=== PATIENT | male | born 1945 | race Caucasian/White ===

== ENCOUNTER 2016-04-15 19:18 | Emergency (ER) | payer MEDICARE ==
[2016-04-15] MEDS ORDERED: ONDANSETRON 4 MG/2 ML VIAL IVP STA ×2 (20:44→22:56)
[2016-04-15] MEDS ORDERED: SODIUM CHLORIDE 0.9% 1,000 ML IV ONE ×2 (20:44→20:50)
[2016-04-15] MEDS ORDERED: DICYCLOMINE 10 MG CAPSULE PO STA ×2 (20:44→22:56)
[2016-04-15] MEDS ORDERED: DICYCLOMINE 10 MG CAPSULE PO ONE ×2 (20:50→23:06)
[2016-04-15] MEDS ORDERED: ONDANSETRON 4 MG/2 ML VIAL ONE ×2 (20:50→23:06)
[2016-04-15] MEDS ORDERED: POTASSIUM BICARB 25 MEQ TABLET PO STA (21:19)
[2016-04-15] MEDS ORDERED: POTASSIUM CHLOR 10 MEQ/100 ML 100 ML IV ONE ×2 (21:19→21:28)
[2016-04-15] MEDS ORDERED: POTASSIUM BICARB 25 MEQ TABLET PO ONE (21:28)
[2016-04-15] MEDS ORDERED: CALCIUM CARBONATE CHEW 500 MG TABLET PO STA (22:20)
[2016-04-15] MEDS ORDERED: CALCIUM CARBONATE CHEW 500 MG TABLET ONE (22:27)
== END 2016-04-15 23:14 | disposition home or self-care (01) ==
DX: K43.9 Ventral hernia without obstruction or gangrene (principal); R11.0 Nausea; E86.0 Dehydration; E87.6 Hypokalemia; R10.13 Epigastric pain; E66.01 Morbid (severe) obesity due to excess calories; Z68.44 Body mass index [BMI] 60.0-69.9, adult; F51.01 Primary insomnia; N28.89 Other specified disorders of kidney and ureter; E11.42 Type 2 diabetes mellitus with diabetic polyneuropathy; Z79.84 Long term (current) use of oral hypoglycemic drugs; I11.0 Hypertensive heart disease with heart failure; I50.9 Heart failure, unspecified; Z86.010 Personal history of colon polyps
CPT/HCPCS: 36415; 74176; 80053; 83690; 85025; 87339; 96365; 96375; 96376; 99284; A9270

== ENCOUNTER 2016-04-24 14:00 | Outpatient (CLI) | payer MEDICARE | END 2016-04-24 14:01 | disposition home or self-care (01) | DX: I12.9 Hypertensive chronic kidney disease with stage 1 through stage 4 chronic kidney disease, or unspecified chronic kidney disease (principal); N18.9 Chronic kidney disease, unspecified; E11.9 Type 2 diabetes mellitus without complications; R06.09 Other forms of dyspnea ==

== ENCOUNTER 2016-05-07 11:50 | Outpatient (CLI) | payer MEDICARE | END 2016-05-07 11:51 | DX: E61.1 Iron deficiency (principal); N18.9 Chronic kidney disease, unspecified ==

== ENCOUNTER 2016-05-16 13:44 | Outpatient (CLI) | payer MEDICARE ==
[2016-05-16] MEDS ORDERED: IOPAMIDOL-300 100 ML VIAL IVP ONE (15:23)
== END 2016-05-16 13:45 | disposition home or self-care (01) ==
DX: N28.1 Cyst of kidney, acquired (principal)
CPT/HCPCS: 74178; Q9967

== ENCOUNTER 2016-08-08 15:24 | Outpatient (CLI) | payer MEDICARE ==
[2016-08-08 15:52] LABS: BASOPHILS # (AUTO) 0.1 10^3/uL (0.0-0.1); BASOPHILS % (AUTO) 0.4 %; EOSINOPHILS % (AUTO) 0.1 %; HGB - HEMOGLOBIN 8.7 g/dL (14.0-18.0); LYMPHOCYTES # (AUTO) 2.5 10^3/uL (1.5-3.5); LYMPHOCYTES % (AUTO) 14.8 %; MEAN CORPUSCULAR HEMOGLOBIN 22.2 pg (27.0-31.0); MEAN CORPUSCULAR VOLUME 73.9 fL (80.0-94.0); MEAN PLATELET VOLUME 7.4 fL (7.4-11.4); MONOCYTES # (AUTO) 1.9 10^3/uL (0.0-1.0); MONOCYTES % (AUTO) 11.4 %; NEUTROPHILS # (AUTO) 12.4 10^3/uL (1.5-6.6); NEUTROPHILS % (AUTO) 73.3 %; RED BLOOD COUNT 3.92 10^6/uL (4.70-6.10); RED CELL DISTRIBUTION WIDTH 16.1 % (12.0-15.0)
[2016-08-08 16:07] LABS: ALBUMIN/GLOBULIN RATIO 1.1 (1.0-2.2); BILIRUBIN,TOTAL 0.5 mg/dL (0.2-1.0); BUN - BLOOD UREA NITROGEN 23 mg/dL (6-20); CALCIUM 8.9 mg/dL (8.5-10.3); CARBON DIOXIDE - CO2 28 mmol/L (21-32); CHLORIDE 101 mmol/L (101-111); CREATININE 1.5 mg/dL (0.6-1.2); GFR - MDRD 46 (>89); GLUCOSE 133 mg/dL (70-100); IRON < 6 ug/dL (45-182); POTASSIUM 3.9 mmol/L (3.5-5.0); SODIUM 140 mmol/L (135-145); TOTAL PROTEIN 6.8 g/dL (6.7-8.2)
[2016-08-08 17:14] LABS: HEMOGLOBIN A1C 0.4 g/dL
[2016-08-08 17:26] LABS: THYROID STIMULATING HORMONE 2.31 uIU/mL (0.34-5.60)
[2016-08-08] MEDS ORDERED: IOPAMIDOL-300 100 ML VIAL IVP ONE (17:47)
[2016-08-08] MEDS ORDERED: IOPAMIDOL-300 50 ML VIAL PO ONE (17:47)
--- NOTE | 2016-08-08 19:34 | CT Preliminary Report ---
Exam: CT Abdomen/Pelvis W/ Impression: New cecal lesion with adjacent fat stranding. This may represent a primary colon cancer or inflammato ry changes. A GI consult is recommended for further evaluation. Multiple ventral hernias. The largest contains bowel without evidence of a bowel obstruction. The candy earance is similar to the previous study. Diverticulosis of the descending and sigmoid colon without evidence of diverticulitis. Atherosclerosis of the aorta and iliac arteries. Large pannus extending into the scrotum. [facility] We are attempting to get a hold of the referring clinician at this time. SITE ID: [id number]
--- NOTE | 2016-08-08 19:37 | CT Report ---
EXAM: CT ABDOMEN AND PELVIS EXAM DATE: 08/08/2016 05:58 PM. CLINICAL HISTORY: ABDOMINAL PAIN LOWER QUADRANT, DIZZINESS VENTRAL H. COMPARISONS: 05/16/2016. TECHNIQUE: Routine helical CT imaging was performed through the abdomen and pelvis. IV contrast: None . Enteric contrast: No. Reconstructions: Coronal and sagittal. In accordance with CT protocol optimization, one or more of the following dose reduction techniques w ere utilized for this exam: automated exposure control, adjustment of mA and/or KV based on patient s ize, or use of iterative reconstructive technique. FINDINGS: The lung bases are without evidence of a mass or infiltrate. The liver and spleen contain calcifications consistent with old granulomatous disease. There are mult iple ventral hernias. The largest is located superiorly and contains bowel. It measures approximately 14.9 7.2 x 8.3 cm (image 27 of series 5 and image 57 of series 8). There is no evidence of a bowel o bstruction. The remainder of the ventral hernias containing intraperitoneal fat. There is a large peña nus extending into the scrotum. The pancreas and adrenal glands are normal in appearance. The kidneys are without evidence of hydrone phrosis. There is a new lesion in the cecal region. It measures approximately 7.9 x 6.4 x 3.9 cm (dwayne ge 77 of series 5 and image 34 series 7). This may represent a mass or inflammatory process. Adjacent fat stranding is noted. This is new since the previous study. Diverticuli are seen involving the descending and sigmoid colon. There is no fat stranding or fluid c ollection to suggest the presence of diverticulitis. No mass or cyst is seen within the pelvis. There is atherosclerosis of the aorta and iliac arteries area there are degenerative changes of the thorac ic and lumbar spine. Impression: New cecal lesion with adjacent fat stranding. This may represent a primary colon cancer or inflammato ry changes. A GI consult is recommended for further evaluation. Multiple ventral hernias. The largest contains bowel without evidence of a bowel obstruction. The candy earance is similar to the previous study. Diverticulosis of the descending and sigmoid colon without evidence of diverticulitis. Atherosclerosis of the aorta and iliac arteries. Large pannus extending into the scrotum. [facility] We are attempting to get a hold of the referring clinician at this time. Referring Provider Line: [phone] SITE ID: [id number]
== END 2016-08-08 15:25 | disposition home or self-care (01) ==
LOC: DI 15:24
PROVIDERS: ATTEND Family Medicine
DX: R10.31 Right lower quadrant pain (principal); K63.89 Other specified diseases of intestine; K43.9 Ventral hernia without obstruction or gangrene; K57.30 Diverticulosis of large intestine without perforation or abscess without bleeding; I70.0 Atherosclerosis of aorta; E65 Localized adiposity; I70.8 Atherosclerosis of other arteries; K43.2 Incisional hernia without obstruction or gangrene; E11.9 Type 2 diabetes mellitus without complications; I12.9 Hypertensive chronic kidney disease with stage 1 through stage 4 chronic kidney disease, or unspecified chronic kidney disease; N18.9 Chronic kidney disease, unspecified; R42 Dizziness and giddiness
CPT/HCPCS: 36415; 74177; 80053; 82043; 82607; 83036; 83540; 84443; 85025; Q9967

== ENCOUNTER 2016-10-25 14:09 | Outpatient (CLI) | payer MEDICARE ==
[2016-10-25 14:26] LABS: BASOPHILS # (AUTO) 0.1 10^3/uL (0.0-0.1); BASOPHILS % (AUTO) 1.1 %; EOSINOPHILS # (AUTO) 0.2 10^3/uL (0.0-0.7); EOSINOPHILS % (AUTO) 2.8 %; HCT - HEMATOCRIT 26.4 % (42.0-52.0); HGB - HEMOGLOBIN 7.8 g/dL (14.0-18.0); LYMPHOCYTES % (AUTO) 24.8 %; MEAN CORPUSCULAR HEMOGLOBIN 19.9 pg (27.0-31.0); MEAN CORPUSCULAR HGB CONC 29.5 g/dL (32.0-36.0); MEAN CORPUSCULAR VOLUME 67.4 fL (80.0-94.0); MEAN PLATELET VOLUME 7.1 fL (7.4-11.4); MONOCYTES # (AUTO) 0.7 10^3/uL (0.0-1.0); NEUTROPHILS % (AUTO) 62.3 %; RED BLOOD COUNT 3.91 10^6/uL (4.70-6.10); RED CELL DISTRIBUTION WIDTH 18.8 % (12.0-15.0)
[2016-10-25 14:42] LABS: ALBUMIN/GLOBULIN RATIO 1.1 (1.0-2.2); BILIRUBIN,TOTAL 0.3 mg/dL (0.2-1.0); CALCIUM 10.3 mg/dL (8.5-10.3); CREATININE 1.8 mg/dL (0.6-1.2); POTASSIUM 3.7 mmol/L (3.5-5.0); TOTAL PROTEIN 6.8 g/dL (6.7-8.2)
[2016-10-25 15:37] LABS: PLATELET ESTIMATE, MANUAL NORMAL (130-450,000) (NORMAL); PLATELET MORPHOLOGY NORMAL APPEARANCE (NORMAL)
== END 2016-10-25 14:10 | disposition home or self-care (01) ==
LOC: LAB 14:09
PROVIDERS: ATTEND Internal Medicine Gastroenterology
DX: R93.8 Abnormal findings on diagnostic imaging of other specified body structures (principal)
CPT/HCPCS: 36415; 80053; 82378; 85025

== ENCOUNTER 2016-10-28 14:02 | Outpatient (CLI) | payer MEDICARE ==
[2016-10-28] MEDS ORDERED: IOPAMIDOL-300 50 ML VIAL PO ONE (15:55)
--- NOTE | 2016-10-29 11:10 | CT Report ---
CT CHEST WITHOUT CONTRAST: 10/28/2016 CLINICAL INDICATION: Cecal mass on previous CT. TECHNIQUE: Axial CT images of the chest were obtained without intravenous contrast. No previous CT is available for comparison. In accordance with CT protocol optimization, one or more of the following dose reduction techniques w ere utilized for this exam: automated exposure control, adjustment of mA and/or KV based on patient size, or use of iterative reconstructive technique. FINDINGS: The heart and great vessels demonstrate mild atherosclerotic calcification. No hilar or m ediastinal lymphadenopathy is present. The lungs are clear. No effusion or pneumothorax is present. Osseous structures demonstrate degenerative changes. IMPRESSION: NO EVIDENCE OF PULMONARY NODULE OR MASS LESION. JOB #: [id number] EXT JOB #:[id number]
--- NOTE | 2016-10-29 11:13 | CT Report ---
CT ABDOMEN AND PELVIS WITHOUT CONTRAST: 10/28/2016 CLINICAL INDICATION: Cecal mass. TECHNIQUE: Axial CT images of the abdomen and pelvis were obtained with oral contrast only. Compari son is made to previous CT of 08/08/2016. In accordance with CT protocol optimization, one or more of the following dose reduction techniques w ere utilized for this exam: automated exposure control, adjustment of mA and/or KV based on patient size, or use of iterative reconstructive technique. FINDINGS: Allowing for the lack of intravenous contrast, the liver, pancreas, kidneys, and adrenal g lands appear unremarkable. The spleen demonstrates changes of old granulomatous disease. The patien t is status post cholecystectomy. Multiple anterior abdominal wall hernias are again noted, with a l oop of nonobstructed transverse colon in the most superior hernia, and multiple fat-containing hernia s present. No bowel dilatation, free gas, or free fluid is present. No abdominal adenopathy is seen . Pelvis: Mass-like appearance of the cecum persists. Surrounding inflammation has improved significa ntly. No pelvic adenopathy or free fluid is appreciated. Osseous structures demonstrate degenerative changes. IMPRESSION: 1. PERSISTENT MASS-LIKE APPEARANCE OF THE CECUM. INTERVAL RESOLUTION OF SURROUNDING INFLAMMATION. 2. MULTIPLE ANTERIOR ABDOMINAL WALL HERNIAS, WITH THE MOST SUPERIOR ONE AGAIN CONTAINING A LOOP OF N ONOBSTRUCTED TRANSVERSE COLON. JOB #: [id number] EXT JOB #:[id number]
== END 2016-10-28 14:03 | disposition home or self-care (01) ==
LOC: DI 14:02
PROVIDERS: ATTEND Internal Medicine Gastroenterology
DX: K63.9 Disease of intestine, unspecified (principal); K43.9 Ventral hernia without obstruction or gangrene
CPT/HCPCS: 71250; 74176; Q9967

== ENCOUNTER 2017-10-05 17:35 | Outpatient (CLI) | payer MEDICARE | END 2017-10-05 17:36 | disposition critical access hospital (66) | LOC: EMS 17:35 | PROVIDERS: ATTEND Surgery | DX: R10.9 Unspecified abdominal pain (principal); R11.2 Nausea with vomiting, unspecified | CPT/HCPCS: A0425; A0429 ==

== ENCOUNTER 2017-10-05 17:41 | Inpatient (IN) | payer MEDICARE ==
--- NOTE | 2017-10-05 18:04 | ED Physician Documentation ---
PD HPI ABD PAIN - Stated complaint Stated Complaint: ABD PX - Chief complaint Chief Complaint: Abd Pain - History obtained from History obtained from: Patient, Family, EMS - History of Present Illness Timing - onset: Other (This is a 72-year-old gentleman with morbid obesity and diabetes as well as abdominal hernias and history of GI bleeds who presents with chronic abdominal pain which increased 10 days ago. It is diffuse and now has not had a bowel movement output or flatus despite trying enemas and oral laxatives. Started vomiting a few days ago as well, it is nonbloody.) Review of Systems Ten Systems: 10 systems reviewed and negative Constitutional: denies: Fever, Chills Throat: denies: Dental pain / toothache, Sore throat Cardiac: denies: Chest pain / pressure, Palpitations Respiratory: denies: Dyspnea, Cough PD PAST MEDICAL HISTORY - Past Medical History Cardiovascular: Congestive heart failure, Hypertension Endocrine/Autoimmune: Type 2 diabetes GI: Hiatal hernia - Past Surgical History Past Surgical History: Yes HEENT: Cataracts - Present Medications Home Medications: Ambulatory Orders Medication Instructions Recorded Confirmed Furosemide 1 tab PO BID 04/15/16 04/15/16 Losartan Potassium 50 mg PO BID 04/15/16 04/15/16 traMADol [Ultram] 1 - 2 tab PO QPM 04/15/16 04/15/16 Calcium Carbonate [Tums (Calcium 10/05/17 Carbonate 500mg)] Cholecalciferol [Vitamin D3] 10/05/17 Docusate Sodium [Dulcolax Stool 10/05/17 Softener] Gabapentin 3 PO 10/05/17 Zolpidem Tartrate [Ambien] 10/05/17 - Allergies Allergies/Adverse Reactions: Allergies Allergy/AdvReac Type Severity Reaction Status Date / Time cephalexin monohydrate * AdvReac Nausea Verified 10/05/17 18:08 [From Keflex] - Social History Does the pt smoke?: No Smoking Status: Never smoker Does the pt drink ETOH?: No Does the pt have substance abuse?: No - Family History Family history: reports: Non contributory - Immunizations Immunizations are current?: No - POLST Patient has POLST: No PD ED PE NORMAL - Vitals Vital signs reviewed: Yes - General General: Alert and oriented X 3, No acute distress - HEENT HEENT: PERRL, EOMI - Neck Neck: Supple, no meningeal sign, No bony TTP - Cardiac Cardiac: RRR, No murmur - Respiratory Respiratory: No respiratory distress, Clear bilaterally - Abdomen Abdomen: Other (He has a right-sided vertical cholecystectomy scar which is tender with a mass in it. He has absent bowel tones but no diffuse tenderness or surgical signs. He is morbidly obese.) - Back Back: No CVA TTP, No spinal TTP - Derm Derm: Normal color, Warm and dry - Extremities Extremities: No calf tenderness / cord, Other (Venous stasis changes) - Neuro Neuro: Alert and oriented X 3, Normal speech - Psych Psych: Normal mood, Normal affect Results - Vitals Vitals: Vital Signs - 24 hr 10/05/17 10/05/17 10/05/17 17:43 18:00 19:08 Temperature 36.9 C Heart Rate 81 78 74 Respiratory 18 18 18 Rate Blood Pressure 130/79 145/67 H 148/74 H O2 Saturation 93 95 95 10/05/17 20:19 Temperature Heart Rate 70 Respiratory 18 Rate Blood Pressure 158/80 H O2 Saturation 95 Oxygen O2 Source Room air - Labs Labs: Laboratory Tests 10/05/17 10/05/17 10/05/17 18:22 18:22 18:22 WBC 5.2 RBC 4.62 L Hgb 9.3 L Hct 31.1 L MCV 67.3 L MCH 20.1 L MCHC 29.9 L RDW 18.8 H Plt Count 360 MPV 7.1 L Neut # (Auto) 3.5 Lymph # (Auto) 0.8 L [place] # (Auto) 0.8 Eos # (Auto) 0.0 Baso # (Auto) 0.0 Absolute Nucleated RBC 0.00 Nucleated RBC % 0.0 Manual Slide Review Indicated Platelet Estimate NORMAL (130-450,000) Platelet Morphology NORMAL APPEARANCE RBC Morph Micro Appear 2+ POIKILOCYTOSIS VBG pH VBG pCO2 VBG pO2 VBG HCO3 VBG Total CO2 VBG O2 Saturation VBG Base Excess Sodium 142 Potassium 3.4 L Chloride 92 L Carbon Dioxide 36 H Anion Gap 12.0 BUN 32 H Creatinine 1.9 H Estimated GFR (MDRD) 35 L Glucose 111 H Lactic Acid 1.4 Calcium 10.5 H Total Bilirubin 0.6 AST 23 ALT 17 Alkaline Phosphatase 44 Total Protein 6.9 Albumin 3.4 Globulin 3.5 Albumin/Globulin Ratio 1.0 Lipase 20 L 10/05/17 18:22 WBC RBC Hgb Hct MCV MCH MCHC RDW Plt Count MPV Neut # (Auto) Lymph # (Auto) [place] # (Auto) Eos # (Auto) Baso # (Auto) Absolute Nucleated RBC Nucleated RBC % Manual Slide Review Platelet Estimate Platelet Morphology RBC Morph Micro Appear VBG pH 7.480 H VBG pCO2 54.5 H VBG pO2 41.9 VBG HCO3 39.7 H VBG Total CO2 41.3 H VBG O2 Saturation 78.9 VBG Base Excess 14.3 H Sodium Potassium Chloride Carbon Dioxide Anion Gap BUN Creatinine Estimated GFR (MDRD) Glucose Lactic Acid Calcium Total Bilirubin AST ALT Alkaline Phosphatase Total Protein Albumin Globulin Albumin/Globulin Ratio Lipase - Rads (name of study) Ct A/P Radiology: EMP read contemporaneously (1. There is dilated small bowel measuring up to 4 cm in diameter. There is mesenteric edema. Findings are suspicious for small bowel obstruction. A discrete transition point is not clearly seen. Enteritis would be a differential consideration. 2. There is a heterogeneous fat and colon containing right anterior abdominal wall hernia without evidence of associated obstruction or inflammation. 3. No acute solid abdominal organ abnormalities are seen. 4. Flattening of the IVC may represent hypovolemia. ) PD MEDICAL DECISION MAKING - ED course ED course: This is a 72-year-old gentleman with complicated medical history including CHF, diabetes, morbid obesity, and abdominal wall hernia which causes him chronic pain for which [facility] has evaluated and felt him to be best served as a nonoperative candidate because of his comorbidities and body habitus. That said now he has a bowel obstruction, although it does not seem related to the hernia which is good so hopefully can be a nonoperative candidate and Dr. Alonso Hdz was consulted by phone and will consult and agrees and will be placed on medicine for admission, spoke with Dr. Becerril for admission at 8:14 PM. However that said when I did talk with her she requested that I try at least try transferring him to [facility] because if he did become an operative candidate he would be incredibly complex. I did call [facility], there are boarding in would be unable to accept him in transfer last he was in imminent operative candidate, but we are welcome to call them back if he does require an operative need. - Sepsis Event Vital Signs: Vital Signs - 24 hr 10/05/17 10/05/17 10/05/17 17:43 18:00 19:08 Temperature 36.9 C Heart Rate 81 78 74 Respiratory 18 18 18 Rate Blood Pressure 130/79 145/67 H 148/74 H O2 Saturation 93 95 95 10/05/17 20:19 Temperature Heart Rate 70 Respiratory 18 Rate Blood Pressure 158/80 H O2 Saturation 95 Oxygen O2 Source Room air Departure - Departure Disposition: [facility] DC/Xfer Clinical Impression: Small bowel obstruction Condition: Stable
[2017-10-05] MEDS ORDERED: IOPAMIDOL-300 100 ML VIAL ONE (18:19)
[2017-10-05] MEDS ORDERED: IOPAMIDOL-300 50 ML VIAL ONE (18:19)
[2017-10-05 18:34] LABS: VBG BASE EXCESS 14.3 mmol/L (-2 - +2); VBG PCO2 54.5 mmHg (41-51); VBG PH 7.48 (7.31-7.41); VBG PO2 41.9 mmHg (25-47); VBG TOTAL CO2 41.3 mmol/L (24-29)
[2017-10-05 18:36] LABS: BASOPHILS % (AUTO) 0.5 %; EOSINOPHILS % (AUTO) 0.9 %; HGB - HEMOGLOBIN 9.3 g/dL (14.0-18.0); LYMPHOCYTES # (AUTO) 0.8 10^3/uL (1.5-3.5); LYMPHOCYTES % (AUTO) 15.1 %; MEAN CORPUSCULAR HEMOGLOBIN 20.1 pg (27.0-31.0); MEAN CORPUSCULAR HGB CONC 29.9 g/dL (32.0-36.0); MEAN CORPUSCULAR VOLUME 67.3 fL (80.0-94.0); MEAN PLATELET VOLUME 7.1 fL (7.4-11.4); MONOCYTES # (AUTO) 0.8 10^3/uL (0.0-1.0); MONOCYTES % (AUTO) 15.8 %; NEUTROPHILS # (AUTO) 3.5 10^3/uL (1.5-6.6); NEUTROPHILS % (AUTO) 67.7 %; PLT - PLATELET COUNT 360 10^3/uL (130-450); RED BLOOD COUNT 4.62 10^6/uL (4.70-6.10); RED CELL DISTRIBUTION WIDTH 18.8 % (12.0-15.0); WHITE BLOOD COUNT 5.2 x10^3/uL (4.8-10.8)
[2017-10-05 18:41] LABS: ALBUMIN 3.4 g/dL (3.2-5.5); BILIRUBIN,TOTAL 0.6 mg/dL (0.2-1.0); CALCIUM 10.5 mg/dL (8.5-10.3); CREATININE 1.9 mg/dL (0.6-1.2); TOTAL PROTEIN 6.9 g/dL (6.7-8.2)
[2017-10-05] MEDS ORDERED: SODIUM CHLORIDE 0.9% 1,000 ML IV ONE (18:50)
[2017-10-05 19:07] LABS: PLATELET ESTIMATE, MANUAL NORMAL (130-450,000) (NORMAL); PLATELET MORPHOLOGY NORMAL APPEARANCE (NORMAL)
[2017-10-05] MEDS ORDERED: IOPAMIDOL-300 50 ML VIAL PO ONE (19:52)
--- NOTE | 2017-10-05 19:59 | CT Report ---
Procedure Date: 10/05/2017 Accession Number: [id number] / [id number] Procedure: CT - Abdomen/Pelvis W/O CPT Code: FULL RESULT: EXAM: CT ABDOMEN AND PELVIS EXAM DATE: 10/05/2017 07:25 PM. CLINICAL HISTORY: Abdominal pain. COMPARISONS: ABDOMEN/PELVIS W/O 10/28/2016. TECHNIQUE: Routine axial helical CT imaging was performed through the abdomen and pelvis without IV contrast. Reconstructions: Coronal and sagittal. In accordance with CT protocol optimization, one or more of the following dose reduction techniques were utilized for this exam: automated exposure control, adjustment of mA and/or KV based on patient size, or use of iterative reconstructive technique. FINDINGS: Lung Bases: Unremarkable. There is a borderline-enlarged right epicardiac lymph node. Abdominal Organs: Noncontrast images of the abdominal organs are grossly unremarkable. Gallbladder/bile ducts: No significant abnormalities. Peritoneal Cavity: The stomach is distended with positive oral contrast. There is mildly dilated mid and lower abdomen small bowel. There is mild mesenteric fat stranding. A discrete transition point is not clearly seen. No acute colonic abnormalities are seen. There is a heterogeneous right anterior abdomen fat and colon containing hernia without evidence of associated inflammation. Pelvic Organs: No bladder stones or wall thickening. Noncontrast images of the visualized pelvic organs are unremarkable. Vasculature: Flattening of the IVC may represent hypovolemia. Other: None. IMPRESSION: 1. There is dilated small bowel measuring up to 4 cm in diameter. There is mesenteric edema. Findings are suspicious for small bowel obstruction. A discrete transition point is not clearly seen. Enteritis would be a differential consideration. 2. There is a heterogeneous fat and colon containing right anterior abdominal wall hernia without evidence of associated obstruction or inflammation. 3. No acute solid abdominal organ abnormalities are seen. 4. Flattening of the IVC may represent hypovolemia.
[2017-10-05] MEDS ORDERED: MORPHINE 10 MG/ML VIAL IVP STA (20:04)
[2017-10-05] MEDS ORDERED: ONDANSETRON 4 MG/2 ML VIAL IVP STA (20:17)
[2017-10-05] MEDS ORDERED: ONDANSETRON 4 MG/2 ML VIAL ONE (20:30)
--- NOTE | 2017-10-05 21:13 | HISTORY & PHYSICAL EXAMINATION ---
Chief Complaint - Chief Complaint Chief Complaint: Abdominal Pain/Small Bowel Obstruction History of Present Illness - Admitted From Admitted From:: ED - History Obtained From Records Reviewed: Centricity History obtained from: Patient and Spouse Exam Limitations: None - History of Present Illness HPI Comment/Other: Mr. Reed is a 72 y/o male with PMH of morbid obesity, HF (last echo 2013 with EF 60-65%), DM type 2, HTN, lower extremity lymphedema, MAR with nonadherent CPAP use (does use 5L home O2 while sleeping), and chronic abdominal pain s/t longstanding large abdominal ventral hernias. Mr. Reed presented today with abdominal pain, constipation, vomiting, and new syncopal episodes for that past 4-5 days. He reports that he began experiencing symptoms on 10/01 and has not had a BM, passed flatus, or been unable to take much PO since that time. The next day he experienced a syncopal episode after trying to have a bowel movement where he fell to the ground and had be helped up by his and son. He has continued to experience episodes of dizziness and presyncope for the past 4 days. The abdominal pain was generalized, central and nonradiating. Constant. He denies fever, chills, malaise, hematemesis, or rectal bleeding. His nausea has been controlled with PRN zofran x1 in the ER and has remained hemodynamically stable. He came to ER via ambulance from home. He was found to have a small bowel obstruction on CT abd/pelvis, for which we will admit him to provide supportive care and consult general surgery. In the past, he has reportedly been evaluated per his request for elective surgical intervention of panniculectomy/hernia repair due to his constant discomfort and hidden penis and has been seen by multiple surgeons from [facility], [facility], and [facility] but has been found to not be a candidate for elective surgery. His morbidities give him a high risk of post surgical complications. Pt has also had worsening chronic constipation and subsequently undergone multiple colonoscopies with the most recent in 2017 showing narrowing in his ascending colon last year but has has reportedly not seen any providers since then. He had a colonography at [facility] and says it was such a horrible experience he won't do another exam. So the cause of the narrowing is not known. He has no followed up with his PCP since 2017. History - Past Medical History Cardiovascular: reports: Congestive heart failure (last echo 2014 showed EF 60- 65%), Hypertension, Peripheral Vascular Disease. denies: Coronary artery disease, Angina, Arrhythmia Respiratory: reports: Shortness of breath (Chronically when abdominal distention ), Sleep apnea (15 year history), CPAP use (Nonadherent, only occasionally uses , does use 5L NC at night for past couple years). denies: Asthma, COPD Neuro: reports: Migraines, Peripheral neuropathy (Bilateral feet and some in lower legs). denies: CVA Endocrine/Autoimmune: reports: Type 2 diabetes (Diagnosed 2017) GI: reports: GI bleed (Rectal bleeding in past, did not require intervention), Hiatal hernia, Chronic constipation (Since cholecystectomy 40 years ago, daily stool softener use, baseline is 1 BM/day with straining), Other (Taking 15+ Tums per day for past 3-4 months to relieve "abdominal pain from hernia") : reports: Incontinence ("Dribbles"), Nocturia, Frequency, Other (Hidden penis , reports some difficulty voiding due to groin lymphedema) HEENT: reports: Chronic hearing loss (Bilateral, has been told he needs hearing aids but cannot afford) Psych: denies: Depression, Anxiety Musculoskeletal: reports: Osteoarthritis (Bilateral knees) Derm: reports: Other (Bilateral groin and LE lymphedema) MRSA Hx?: No Other Past Medical History: Hyperdense renal cyst found on CT in 2017, no interventions. - Past Surgical History General: reports: Cholecystectomy, Colonoscopy (3 colonoscopies in the past) Ortho: reports: Arthroscopic surgery (Bilateral Knees, multiple surgeries on each) HEENT: reports: Cataracts - Family & Social History Family History: Mother: , Mental Illness ( at age 92, schizophrenia) , Father: , CAD, Diabetes, Type 2, [place] ( in his 80s) Living arrangement: At home Living Situation: With spouse/s.o. 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 Has lived in [place], [place] for 20 years. to , [place], for 53 years. 3 adult children. Difficulty ambulating for past 6-7 years, uses cane and has motorized scooter, unable to climb stairs. - Substance History Use: Uses substance without health or social issues: NONE (Previous 3 PPD smoker x 20 years, quit 35 years ago) Abuse: Recurrent use of substance despite neg consequences: NONE - POLST Patient has POLST: No POLST Status: Full Code Meds/Allgy - Home Medications Home Medications: Ambulatory Orders Medication Instructions Recorded Confirmed Furosemide 1 tab PO BID 04/15/16 04/15/16 Losartan Potassium 50 mg PO BID 04/15/16 10/05/17 traMADol [Ultram] 1 - 2 tab PO QPM 04/15/16 04/15/16 Calcium Carbonate [Tums (Calcium 10/05/17 Carbonate 500mg)] Cholecalciferol [Vitamin D3] 10/05/17 Docusate Sodium [Dulcolax Stool 10/05/17 Softener] Gabapentin 4 PO 10/05/17 Zolpidem Tartrate [Ambien] 10/05/17 - Allergies Allergies/Adverse Reactions: Allergies Allergy/AdvReac Type Severity Reaction Status Date / Time cephalexin monohydrate * AdvReac Nausea Verified 10/05/17 18:08 [From Keflex] Review of Systems - Constitutional Constitutional: reports: Fatigue. denies: Fever, Chills, Night sweats - Eyes Eyes: reports: Corrective lenses (Uses reading glasses). denies: Pain, Irritation, Blurred vision - Ears, Nose & Throat Ears, Nose & Throat: reports: Hearing loss (Bilaterally), Other (Has had no teeth since age 21, does not wear dentures). denies: Tinnitus, Vertigo, Sore throat, Hoarseness, Bleeding gums - Cardiovascular Cariovascular: reports: Lightheadedness (Lightheadedness and syncope for 4 days , never experienced before, reports it as constant), Syncope, Exertional dyspnea (BURTON and decreased exercise tolerance over past year, SOB when walking around single story home, spends most of day in bed), Decr. exercise tolerance, Other (PND). denies: Irregular heart rate, Palpitations, Chest pain - Respiratory Respiratory: reports: Cough (Chronic dry cough after taking "blood pressure pill " (losartan)), Snoring, SOB with exertion. denies: Sputum production, Wheezing , Orthopnea, SOB at rest - Gastrointestinal Gastrointestinal: reports: Abdominal pain (Chronic R upper and lower quadrant abdominal pain at site of large ventral hernia, occasionally radiates to LUQ, increased pain from normal starting 4 days ago), Abdominal distention, Constipation (Chronic, uses miralax daily. Last BM 10/01. No stool or flatus since 10/01), Nausea, Vomiting (For 4 days time, little to no PO intake since), Bloating. denies: Rectal bleeding, Black stools, Bloody stools, Regulo blood emesis, Coffee grounds emesis, Reflux/heartburn - Genitourinary Genitourinary: reports: Frequency, Urgency, Incontinence. denies: Dysuria, Hematuria - Musculoskeletal Musculoskeletal: reports: Joint pain (Bilateral knees) - Neurological Neurological: denies: Focal weakness, Headache, Dizziness, Numbness, Incoordination - Psychiatric Psychiatric: denies: Depression, Anxiety - Hematologic/Lymphatic Hematologic/Lymphatic: reports: Anemia, Other (Lymphedema to bilateral groin and LEs x 20 years). denies: Bruising, Blood clots, Bleeding tendencies - All Other Systems All Other Systems: reports: Reviewed and negative Exam - Vital Signs Reviewed Vital Signs: Yes Vital Signs: Vital Signs x48h Temp Pulse Resp BP Pulse Ox 10/05/17 20:19 70 18 158/80 H 95 10/05/17 19:08 74 18 148/74 H 95 10/05/17 18:00 78 18 145/67 H 95 10/05/17 17:43 36.9 C 81 18 130/79 93 - Physical Exam General Appearance: positive: No acute distress, Alert, Other (Morbidly obese male laying comfortable on stretcher) Eyes Bilateral: positive: PERRL, EOMI, No scleral icterus ENT: positive: No signs of dehydration. negative: Dry mucous membranes Neck: positive: Trachea midline. negative: No JVD Respiratory: positive: Chest non-tender, No respiratory distress, Breath sounds nml Cardiovascular: positive: Regular rate & rhythm, No murmur, Decreased pulse(s) ( Bilateral DPs and PTs) Peripheral Pulses: positive: 1+ Abdomen: positive: Tenderness (Mildly TTP in right upper and lower quadrant), Mass (Multiple hernias palpated- large to R upper and lower quadrants, 2 smaller masses palpated mid lower quadrant), Abnml bowel sounds (Hypoactive), Other (Distended, obese abdomen). negative: Guarding, Rebound Skin: positive: Warm, Dry, Other (Bilateral groin lymphedema) Extremities: positive: No pedal edema, Other (1+ pitting tibial edema to BLEs) Neurologic/Psychiatric: positive: Oriented x3, Motor nml, Mood/affect nml Conclusion/Plan - Problem List (1) Small bowel obstruction Conclusion/Plan: Clinical presentation and exam findings concur with CT abd/pelvis findings that are suspicious for small bowel obstruction. Pt does not have any evidence of peritoneal irritation, is afebrile, hemodynamically stable, without leukocytosis so we will monitor him and plan for conservative management of SBO. * General surgery consult * NPO now, pt refused NGT in ED * MIVF with NS @ 100ml/hr for hydration * PRN IV antiemetics for nausea/vomiting * PRN IV morphine for acute abdominal pain * Repeat imaging via KUB in am * CBC and CMP in am (2) Syncope Conclusion/Plan: New syncopal episode with dizziness and presyncope in the setting of dehydration and multiple comorbidities. Could be from hypovolemia r/t vomiting. Denies palpitations, chest pain, SOB at rest, or arrhythmias. NSR on monitor in ER. However, given cardiac history (CHF, HTN) and increase in BURTON and fatigue over past few years we will obtain an echocardiogram to r/o cardiac etiology. * Routine TTE * OOB with assistance given fall risk Qualifiers: Syncope type: unspecified Qualified Code(s): R55 - Syncope and collapse (3) Hypertension Conclusion/Plan: Pt reports history of labile BPs in the past, states it has been well controlled recently on home losartan dose. SBPs 140-150s today. * Hold home losartan, restart once able to take PO * IV enalapril, hold for SBP <110 Qualifiers: Hypertension type: essential hypertension Qualified Code(s): I10 - Essential (primary) hypertension (4) Heart failure Conclusion/Plan: History of HF, last available Echo done in 2013 showed EF of 60-65%. Endorses increased fatigue, BURTON, PND, and LE edema over past couple years. * Repeat echocardiogram * Hold home lasix dose given mild dehydration s/t to vomiting * at this time will classify as HF with preserved EF Class III Qualifiers: Heart failure type: unspecified Heart failure chronicity: chronic Qualified Code(s): I50.9 - Heart failure, unspecified (5) Sleep apnea with use of continuous positive airway pressure (CPAP) Conclusion/Plan: 15 year history of MAR, occasionally uses home CPAP but is generally noncompliant and prefers to wear home O2 via nasal cannula at night, currently using 5L for past 2 years. * PRN CPAP if patient desires * Oxygen therapy to maintain Spo2 >92% (6) Diabetes type 2, controlled Conclusion/Plan: Reportedly well controlled without complications or pharmacologic therapy, diagnosed last year but this may be inaccurate as he also reportedly has take metformin in the distant past. * q6h POC blood glucose checks * Low dose SSI coverage while NPO * HgbA1C in am Qualifiers: Diabetes mellitus longterm insulin use: without long term care phlebotomist use Diabetes mellitus complication status: without complication Qualified Code(s): E11.9 - Type 2 diabetes mellitus without complications (7) Peripheral neuropathy due to ischemia Conclusion/Plan: History of PVD and bilateral lower extremity and foot peripheral neuropathy treated with gabapentin and tramadol. * Hold PO meds in setting of SBO * Restart when able to take PO - Lab Results Fish Bones: 10/06/17 05:36 10/06/17 05:36 Other Lab Results: Laboratory Tests 10/05/17 10/05/17 10/05/17 18:22 18:22 18:22 WBC 5.2 Hgb 9.3 L Hct 31.1 L Plt Count 360 Sodium 142 Potassium 3.4 L Chloride 92 L Carbon Dioxide 36 H BUN 32 H Creatinine 1.9 H Glucose 111 H Lactic Acid 1.4 Calcium 10.5 H Lipase 20 L - Diagnostic Imaging Results Diagnostic Imaging Results: positive: Final report reviewed (dilated small bowel with distended stomach) Diagnostic Imaging Results Comments: CT abdomen/pelvis shows: 1. Dilated small bowel measuring up to 4cm in diameter with mesenteric edema. Findings are suspicious for small bowel obstruction. Discrete transition point is not clearly seen. 2. Heterogenous fat and colon containing R anterior abdominal wall hernia without evidence of associated obstruction or inflammation. 3. No acute solid abdominal organ abnormalities. 4. Flattening of the IVC may represent hypovolemia. Core Measures - Anticipated LOS I expect patient to be DC'd or transferred within 96 hours.: Yes - DVT/VTE - Prophylaxis VTE/DVT Device ordered at admit?: Yes VTE/DVT Prophylaxis med ordered at admit?: Yes
[2017-10-05] MEDS ORDERED: BENZONATATE 100 MG CAPSULE PO STA (21:21)
[2017-10-05] MEDS: SODIUM CHLORIDE 0.9% 1,000 ML IV SCH (22:19)
[2017-10-06] MEDS: ENALAPRILAT 1.25 MG/ML VIAL IVP SCH ×4 (00:18→18:36)
[2017-10-06] MEDS: LORazepam 2 MG/ML VIAL IVP PRN (00:32)
[2017-10-06] MEDS: SODIUM CHLORIDE FLUSH 0.9% 10 ML SYRINGE IVP SCH ×4 (00:34→23:40)
[2017-10-06] MEDS ORDERED: POTASSIUM CHLOR 20 MEQ/100 ML 20 MEQ/100 ML BAG IV ONE (00:59)
[2017-10-06 01:22] LABS: VBG PH 7.48 (7.31-7.41)
[2017-10-06] MEDS: INSULIN REGULAR HUMAN 100 UNIT/1 ML 10 ML MDV SUBQ SCH ×5 (01:34→23:38)
[2017-10-06] MEDS: POTASSIUM CHLOR 10 MEQ/100 ML 10 MEQ/100 ML BAG IV SCH ×2 (01:49→03:38)
[2017-10-06] MEDS: MORPHINE 2 MG/ML SYRINGE IVP PRN ×6 (03:37→22:19)
[2017-10-06] MEDS: SODIUM CHLORIDE FLUSH 0.9% 10 ML SYRINGE IVP PRN ×2 (03:38→06:50)
[2017-10-06] MEDS: ONDANSETRON 4 MG/2 ML VIAL IVP PRN ×2 (03:47→10:00)
[2017-10-06 05:54] LABS: BASOPHILS % (AUTO) 0.5 %; EOSINOPHILS # (AUTO) 0.1 10^3/uL (0.0-0.7); HGB - HEMOGLOBIN 8.1 g/dL (14.0-18.0); LYMPHOCYTES # (AUTO) 1.1 10^3/uL (1.5-3.5); LYMPHOCYTES % (AUTO) 18.8 %; MEAN CORPUSCULAR HEMOGLOBIN 20.3 pg (27.0-31.0); MEAN CORPUSCULAR HGB CONC 29.4 g/dL (32.0-36.0); MEAN PLATELET VOLUME 7.3 fL (7.4-11.4); MONOCYTES # (AUTO) 0.9 10^3/uL (0.0-1.0); NEUTROPHILS # (AUTO) 3.7 10^3/uL (1.5-6.6); NEUTROPHILS % (AUTO) 62.7 %; PLT - PLATELET COUNT 319 10^3/uL (130-450); RED CELL DISTRIBUTION WIDTH 19.1 % (12.0-15.0); WHITE BLOOD COUNT 5.9 x10^3/uL (4.8-10.8)
[2017-10-06 06:02] LABS: BILIRUBIN,TOTAL 0.6 mg/dL (0.2-1.0); CALCIUM 9.2 mg/dL (8.5-10.3); CREATININE 2.4 mg/dL (0.6-1.2); TOTAL PROTEIN 5.9 g/dL (6.7-8.2)
[2017-10-06 06:27] LABS: PLATELET ESTIMATE, MANUAL NORMAL (130-450,000) (NORMAL); PLATELET MORPHOLOGY 1+ LARGE PLATELETS (NORMAL)
[2017-10-06 06:51] LABS: HB2 TOTAL 8.8 g/dL; HEMOGLOBIN A1C 0.31 g/dL; HEMOGLOBIN A1C % 5.4 % (4.6-6.2)
[2017-10-06] MEDS ORDERED: IOPAMIDOL-300 100 ML VIAL IVP ONE (07:36)
[2017-10-06] MEDS: SODIUM CHLORIDE 0.9% 1,000 ML IV SCH ×2 (08:34→21:02)
[2017-10-06] MEDS: ENOXAPARIN 40 MG/0.4 ML SYRINGE SUBQ SCH (10:00)
[2017-10-06] MEDS: POLYETHYLENE GLYCOL 3350 17 GM PACKET PO SCH (10:02)
--- NOTE | 2017-10-06 12:14 | XRAY Report ---
Procedure Date: 10/06/2017 Accession Number: [id number] / [id number] Procedure: XR - Abdomen 1 View X-Ray CPT Code: 81610 FULL RESULT: EXAM: Abdomen 1 View X-Ray DATE: 10/06/2017 9:37 AM CLINICAL HISTORY: Small Bowel Obstruction COMPARISON: CT abdomen and pelvis 10/05/2017 TECHNIQUE: 1 view. FINDINGS: Bowel Gas Pattern: Numerous gas distended small bowel loops measuring up to 5 cm in diameter similar to the can marker images of the CT 10/05/2017. A small amount of colonic gas remains at the splenic flexure, overall decreased compared to prior. Other: None. IMPRESSION: Persistent obstructive bowel gas pattern. RADIA
--- NOTE | 2017-10-06 13:56 | CONSULTATION NOTE ---
Referring Provider Name of Referring Provider:: Dr. Becerril Consult Date: 10/06/17 Chief Complaint - Chief Complaint Chief Complaint: abd pain History of Present Illness - Admitted From Admitted From:: ER - History Obtained From Records Reviewed: yes History obtained from: pt and Exam Limitations: none - History of Present Illness HPI Comment/Other: 72 yo male with a 4-5 day hx of intermittent colicky generalized abdominal pain associated with N/V nonbloody material. He also noted decreased frequency and volume of stool and flatus. No fever/chills, or prior similar sx. He reports a 70# wt loss over the past year, which has been intentional. He reports chronic discomfort in his RUQ related to a chronically incarcerated ventral incisional hernia, which has been stable and unchanged per pt. He is s/p open cholecystectomy 30 yrs ago. No prior abdominal surgery. Neg Fh CRC. He reports having had several colonosopies, apparently limited in extent due to colon being present in RUQ hernia sac, and recent BE performed last year apparently showed narrowing in the ascending colon of unclear significance. He reports that he is feeling better since admission last night, with no further N/V and decreasing, but persistent abd pains. He continues to pass small amts of flatus ; his last bm was yesterday. No hx melena/hematochezia. He has chronic constipation treated with laxatives. History - Past Medical History Cardiovascular: reports: Congestive heart failure (last echo 2013 showed EF 60- 65%), Hypertension, Peripheral Vascular Disease. denies: Coronary artery disease, Angina, [place], Arrhythmia Respiratory: reports: Shortness of breath (Chronically when abdominal distention ), Sleep apnea (15 year history), CPAP use (Nonadherent, only occasionally uses , does use 5L NC at night for past couple years). denies: Asthma, COPD Neuro: reports: Migraines, Peripheral neuropathy (Bilateral feet and some in lower legs). denies: CVA Endocrine/Autoimmune: reports: Type 2 diabetes (Diagnosed 2017) GI: reports: GI bleed (Rectal bleeding in past, did not require intervention), Hiatal hernia, Chronic constipation (Since cholecystectomy 40 years ago, daily stool softener use, baseline is 1 BM/day with straining), Other (Taking 15+ Tums per day for past 3-4 months to relieve "abdominal pain from hernia") : reports: Incontinence ("Dribbles"), Nocturia, Frequency, Other (Hidden penis , reports some difficulty voiding due to groin lymphedema) HEENT: reports: Chronic hearing loss (Bilateral, has been told he needs hearing aids but cannot afford) Psych: denies: Depression, Anxiety Musculoskeletal: reports: Osteoarthritis (Bilateral knees) Derm: reports: Other (Bilateral groin and LE lymphedema) MRSA Hx?: No Other Past Medical History: Hyperdense renal cyst found on CT in 2017, no interventions. - Past Surgical History General: reports: Cholecystectomy, Colonoscopy (3 colonoscopies in the past) Ortho: reports: Knee replacement (bilat), Arthroscopic surgery (Bilateral Knees , multiple surgeries on each) HEENT: reports: Cataracts - Family & Social History Family History: Mother: , Mental Illness ( at age 92, schizophrenia) , Father: , CAD, Diabetes, Type 2, [place] ( in his 80s) Family History Comment/Other: neg for GI tumors Living arrangement: At home Living Situation: With spouse/s.o. 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 Has lived in [place], [place] for 20 years. to , [place], for 53 years. 3 adult children. Difficulty ambulating for past 6-7 years, uses cane and has motorized scooter, unable to climb stairs. - Substance History Use: Uses substance without health or social issues: NONE (Previous 3 PPD smoker x 20 years, quit 35 years ago) Abuse: Recurrent use of substance despite neg consequences: NONE - POLST Patient has POLST: No POLST Status: Full Code Meds/Allgy - Home Medications Home Medications: Ambulatory Orders Medication Instructions Recorded Confirmed Furosemide 1 tab PO BID 04/15/16 04/15/16 Losartan Potassium 50 mg PO BID 04/15/16 10/05/17 traMADol [Ultram] 1 - 2 tab PO QPM PRN 04/15/16 10/06/17 Calcium Carbonate [Tums (Calcium 500 - 1,000 mg PO Q4H PRN 10/05/17 10/06/17 Carbonate 500mg)] Cholecalciferol [Vitamin D3] 5,000 unit PO DAILY 10/05/17 10/06/17 Gabapentin 900 mg PO QPM 10/05/17 10/06/17 Zolpidem Tartrate [Ambien] 10 mg PO QPM PRN 10/05/17 10/06/17 Docusate Sodium 250Mg Capsule 250 mg PO BID PRN 10/06/17 10/06/17 [Colace 250Mg Capsule] - Allergies Allergies/Adverse Reactions: Allergies Allergy/AdvReac Type Severity Reaction Status Date / Time cephalexin monohydrate * AdvReac Nausea Verified 10/05/17 18:08 [From Keflex] Review of Systems - Constitutional Constitutional: reports: Malaise, Weakness, Poor appetite, Weight loss - Cardiovascular Cariovascular: reports: Lightheadedness, Syncope. denies: Irregular heart rate , Palpitations - Respiratory Respiratory: reports: Sputum production. denies: Cough, Wheezing - Gastrointestinal Gastrointestinal: reports: Abdominal pain, Constipation, Change in bowel habits , Nausea, Vomiting. denies: Rectal bleeding, Black stools, Bloody stools, Regulo blood emesis, Coffee grounds emesis - Hematologic/Lymphatic Hematologic/Lymphatic: denies: Blood clots, Bleeding tendencies - All Other Systems All Other Systems: reports: Reviewed and negative Exam - Vital Signs Reviewed Vital Signs: Yes Vital Signs: Vital Signs x48h Temp Pulse Resp BP Pulse Ox 10/06/17 08:00 36.5 C 63 20 114/71 100 - Physical Exam General Appearance: positive: No acute distress, Alert Eyes Bilateral: positive: Conjunctivae nml, No scleral icterus ENT: positive: ENT inspection nml, Dry mucous membranes Neck: positive: Nml inspection, No JVD Respiratory: positive: No respiratory distress, Wheezes (faint expiratory). negative: Rales, Rhonchi Cardiovascular: positive: Regular rate & rhythm, No murmur, No gallop Abdomen: positive: Non-tender, No organomegaly, Mass ( RUQ paramedian surgical scar with soft tissue mass deep to the scar, irreducible, c/w incarcerated VIH, minimally tender.), Abnml bowel sounds (high pitched, tympanitic, hyperactive), Other (marked truncal obesity with pannus). negative: Tenderness, Guarding, Rebound Skin: positive: Warm, Dry, Pallor. negative: Diaphoresis Extremities: positive: Pedal edema. negative: Calf tenderness Neurologic/Psychiatric: positive: Oriented x3 Conclusion/Plan - Diagnosis Diagnosis: Abdominal pain, N, V of unclear etiology; ddx includes partial SBO, gastroenteritis/viral syndrome, doubt LBO related to the chronically incarcerated hernia, ileus, etc. - Plan Plan: Gastrograffin challenge/SBFT; continue bowel rest, IVF, serial exams. - Lab Results Lab results reviewed: Yes Fish Bones: 10/06/17 05:36 10/06/17 05:36 - Diagnostic Imaging Results Diagnostic Imaging Results: positive: Final report reviewed, Discussed with radiologist, Read independently Diagnostic Imaging Results Comments: CT abd/pelvis: large incarcerated RUQ VIH with colon present in hernia sac without evidence for bowel obstruction from hernia. multiple dilated loops of small bowel with a/f levels but no definite transition pt.
--- NOTE | 2017-10-06 16:10 | PROVIDER PROGRESS NOTE ---
Assessment/Plan - Problem List (1) Small bowel obstruction Assessment/Plan: Clinical presentation and exam findings concur with CT abd/pelvis findings that are suspicious for small bowel obstruction. Pt does not have any evidence of peritoneal irritation, is afebrile, hemodynamically stable, without leukocytosis so we will monitor him and plan for conservative management of SBO. Patient continues to have symptoms of abdominal distention and pain with no BM but not vomiting. * General surgery consult they recommend a small bowel follow through with gastrografin * NPO now, pt refused NGT in ED * Continue maintenance IVF with NS @ 100ml/hr for hydration * PRN IV antiemetics for nausea/vomiting * PRN IV morphine for acute abdominal pain * Repeat KUB this am showed no improvement * CBC and CMP in am (2) Syncope Conclusion/Plan: New syncopal episode with dizziness and presyncope in the setting of dehydration and multiple comorbidities. Could be from hypovolemia r/t vomiting. Denies palpitations, chest pain, SOB at rest, or arrhythmias. NSR on monitor in ER. However, given cardiac history (CHF, HTN) and increase in BURTON and fatigue over past few years we will obtain an echocardiogram to r/o cardiac etiology. * Routine TTE is pending * OOB with assistance given fall risk Qualifiers: Syncope type: unspecified Qualified Code(s): R55 - Syncope and collapse (3) Hypertension Conclusion/Plan: Pt reports history of labile BPs in the past, states it has been well controlled recently on home losartan dose. BP is stable today. * Hold home losartan, restart once able to take PO * IV enalapril, hold for SBP <110 Qualifiers: Hypertension type: essential hypertension Qualified Code(s): I10 - Essential (primary) hypertension (4) Heart failure Conclusion/Plan: History of HF, last available Echo done in 2013 showed EF of 60-65%. Endorses increased fatigue, BURTON, PND, and LE edema over past couple years. * Repeat echocardiogram pending * Hold home lasix dose given mild dehydration s/t to vomiting * at this time will classify as HF with preserved EF Class III Qualifiers: Heart failure type: unspecified Heart failure chronicity: chronic Qualified Code(s): I50.9 - Heart failure, unspecified (5) Sleep apnea with use of continuous positive airway pressure (CPAP) Conclusion/Plan: 15 year history of MAR, occasionally uses home CPAP but is generally noncompliant and prefers to wear home O2 via nasal cannula at night, currently using 5L for past 2 years. * PRN CPAP if patient desires * Oxygen therapy to maintain Spo2 >92% (6) Diabetes type 2, controlled Conclusion/Plan: Reportedly well controlled without complications or pharmacologic therapy, diagnosed last year but this may be inaccurate as he also reportedly has take metformin in the distant past. 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 * Hold PO meds in setting of SBO * Restart when able to take PO - Current Meds Current Meds: Current Medications Generic Name Dose Route Start Last Admin Trade Name Ruth Ann PRN Reason Stop Dose Admin Enalaprilat 0.625 mg 10/06/17 00:00 10/06/17 12:42 Vasotec Inj IVP Not Given Q6HR MARIVEL Enoxaparin Sodium 40 mg 10/06/17 09:00 10/06/17 10:00 Lovenox SUBQ 40 mg DAILY MARIVEL Administration Sodium Chloride 1,000 mls @ 100 mls/hr 10/05/17 21:00 10/06/17 08:34 Normal Saline 0.9% IV 100 mls/hr .Q10H MARIVEL Administration Insulin Human Regular 1 - 5 unit 10/06/17 00:00 10/06/17 12:40 Novolin R SUBQ Not Given Q6HR MARIVEL Protocol Lorazepam 0.5 mg 10/05/17 23:55 10/06/17 00:32 Ativan Inj (Vial) IVP 0.5 mg QPM PRN Administration Insomnia Morphine Sulfate 2 mg 10/05/17 21:00 10/06/17 10:00 Morphine IVP 2 mg Q2H PRN Administration Pain 8 to 10 Ondansetron HCl 4 mg 10/05/17 21:00 10/06/17 10:00 Zofran Inj IVP 4 mg Q6HR PRN Administration Nausea / Vomiting Polyethylene Glycol 17 gm 10/06/17 09:00 10/06/17 10:02 Miralax PO 17 gm DAILY MARIVEL Administration Sodium Chloride 10 ml 10/05/17 21:00 10/06/17 06:50 Normal Saline Flush 0.9% IVP 10 ml PRN PRN Administration NEEDED PER PROVIDER ORDERS Sodium Chloride 10 ml 10/06/17 01:00 10/06/17 10:00 Normal Saline Flush 0.9% IVP Not Given 0100,0900,1700 MARIVEL - Lab Result Lab results reviewed: Yes Fish Bone Diagrams: 10/06/17 05:36 10/06/17 05:36 - Diagnostic Imaging Results Diagnostic Imaging Results: Final report reviewed - Additional Planning Condition/Complexity: Guarded My Orders: My Active Orders 10/06/17 13:18 Small Bowel Follow Through [[place]] Routine Consult/Specialty: Surgery Plan Discussed with:: Patient Time Spent: 31-60 minutes Subjective - Subjective Patient Reports: Abdominal Pain, Nausea, Other (Patient continues to have abdominal distention and pain. He has not vomited but feels nauseated. No bowel movement but patient states he felt some flatus.) Nursing Reports: No Complaints Objective Vital Signs: Vital Signs - 24 hr 10/05/17 10/05/17 10/06/17 21:35 22:20 00:12 Temperature 36.6 C Heart Rate 71 Heart Rate [ 82 Brachial] Respiratory 18 17 Rate Blood Pressure 142/90 H Blood Pressure 141/52 H 152/60 H [Right Brachial artery] Blood Pressure [Right Radial artery] O2 Saturation 94 94 10/06/17 10/06/17 00:45 08:00 Temperature 36.7 C 36.5 C Heart Rate Heart Rate [ 73 63 Brachial] Respiratory 18 20 Rate Blood Pressure Blood Pressure 114/71 [Right Brachial artery] Blood Pressure 107/57 L [Right Radial artery] O2 Saturation 97 100 Oxygen O2 Source Nasal cannula I&O (Last 24 Hrs): Intake and Output Totals x24h 10/04/17 10/05/17 10/06/17 23:59 23:59 23:59 Intake Total 2200 Balance 2200 General: Alert, Oriented x3, Cooperative, Mild distress (Distended abdomen with pain and obstruction) HEENT: Atraumatic, PERRLA, EOMI, Other (Dry mucus membranes) Neck: Supple, No JVD, No thyromegaly, +2 carotid pulse wo bruit, No LAD Lymphatic: no adenopathy Neuro: Alert, Non Focal, CN 2-12 Grossly Intact, Oriented Times 3 Cardiovascular: Regular rate, Normal S1, Normal S2, No murmurs Respiratory: Chest non-tender, Other (Distant breath sounds) Abdomen: Other (Distened abdoment with hernia, soft, no peritoneal signs. Decrease bowel sounds.) Extremities: No clubbing, No cyanosis, No edema, Normal pulses, No tenderness/ swelling Skin: No rashes, No breakdown, No significant lesion - Results Results: Laboratory Results WBC 5.9 x10^3/uL (4.8-10.8) 10/06/17 05:36 RBC 4.00 10^6/uL (4.70-6.10) L 10/06/17 05:36 Hgb 8.1 g/dL (14.0-18.0) L 10/06/17 05:36 Hct 27.6 % (42.0-52.0) L 10/06/17 05:36 MCV 69.0 fL (80.0-94.0) L 10/06/17 05:36 MCH 20.3 pg (27.0-31.0) L 10/06/17 05:36 MCHC 29.4 g/dL (32.0-36.0) L 10/06/17 05:36 RDW 19.1 % (12.0-15.0) H 10/06/17 05:36 Plt Count 319 10^3/uL (130-450) 10/06/17 05:36 MPV 7.3 fL (7.4-11.4) L 10/06/17 05:36 Neut # (Auto) 3.7 10^3/uL (1.5-6.6) 10/06/17 05:36 Lymph # (Auto) 1.1 10^3/uL (1.5-3.5) L 10/06/17 05:36 [place] # (Auto) 0.9 10^3/uL (0.0-1.0) 10/06/17 05:36 Eos # (Auto) 0.1 10^3/uL (0.0-0.7) 10/06/17 05:36 Baso # (Auto) 0.0 10^3/uL (0.0-0.1) 10/06/17 05:36 Absolute Nucleated RBC 0.00 x10^3/uL 10/06/17 05:36 Nucleated RBC % 0.0 /100WBC 10/06/17 05:36 Manual Slide Review Indicated 10/06/17 05:36 Platelet Estimate NORMAL (130-450,000) (NORMAL) 10/06/17 05:36 Platelet Morphology 1+ LARGE PLATELETS (NORMAL) 10/06/17 05:36 RBC Morph Micro Appear 2+ ANISOCYTOSIS (NORMAL) 3+ HYPOCHROMASIA (NORMAL) 2 + MICROCYTOSIS (NORMAL) 2+ POIKILOCYTOSIS (NORMAL) 10/05/17 18:22 RBC Morph Micro Appear 2+ ANISOCYTOSIS (NORMAL) 3+ HYPOCHROMASIA (NORMAL) 2 + MICROCYTOSIS (NORMAL) 2+ POIKILOCYTOSIS (NORMAL) 10/05/17 18:22 RBC Morph Micro Appear 2+ ANISOCYTOSIS (NORMAL) 3+ HYPOCHROMASIA (NORMAL) 2 + MICROCYTOSIS (NORMAL) 2+ POIKILOCYTOSIS (NORMAL) 10/05/17 18:22 RBC Morph Micro Appear 3+ HYPOCHROMASIA (NORMAL) 2+ MICROCYTOSIS (NORMAL) 1+ POLYCHROMASIA (NORMAL) 1+ ANISOCYTOSIS (NORMAL) 10/06/17 05:36 RBC Morph Micro Appear 3+ HYPOCHROMASIA (NORMAL) 2+ MICROCYTOSIS (NORMAL) 1+ POLYCHROMASIA (NORMAL) 1+ ANISOCYTOSIS (NORMAL) 10/06/17 05:36 RBC Morph Micro Appear 3+ HYPOCHROMASIA (NORMAL) 2+ MICROCYTOSIS (NORMAL) 1+ POLYCHROMASIA (NORMAL) 1+ ANISOCYTOSIS (NORMAL) 10/06/17 05:36 RBC Morph Micro Appear 3+ HYPOCHROMASIA (NORMAL) 2+ MICROCYTOSIS (NORMAL) 1+ POLYCHROMASIA (NORMAL) 1+ ANISOCYTOSIS (NORMAL) 10/06/17 05:36 VBG pH 7.480 (7.31-7.41) H 10/05/17 18:22 VBG pCO2 54.5 mmHg (41-51) H 10/05/17 18:22 VBG pO2 41.9 mmHg (25-47) 10/05/17 18:22 VBG HCO3 39.7 mmol/L (23-28) H 10/05/17 18:22 VBG Total CO2 41.3 mmol/L (24-29) H 10/05/17 18:22 VBG O2 Saturation 78.9 % (60-80) 10/05/17 18:22 VBG Base Excess 14.3 mmol/L (-2 - +2) H 10/05/17 18:22 Ionized Calcium 1.21 mmol/L (1.15-1.33) 10/05/17 18:22 Sodium 139 mmol/L (135-145) 10/06/17 05:36 Potassium 3.8 mmol/L (3.5-5.0) 10/06/17 05:36 Chloride 93 mmol/L (101-111) L 10/06/17 05:36 Carbon Dioxide 38 mmol/L (21-32) H 10/06/17 05:36 Anion Gap 8.0 (6-13) 10/06/17 05:36 BUN 38 mg/dL (6-20) H 10/06/17 05:36 Creatinine 2.4 mg/dL (0.6-1.2) H 10/06/17 05:36 Estimated GFR (MDRD) 27 (>89) L 10/06/17 05:36 Glucose 99 mg/dL (70-100) 10/06/17 05:36 Glycated Hemoglobin 5.4 % (4.6-6.2) 10/06/17 05:36 Estim Average Glucose 108 (70-100) H 10/06/17 05:36 Lactic Acid 1.4 mmol/L (0.5-2.2) 10/05/17 18:22 Calcium 9.2 mg/dL (8.5-10.3) 10/06/17 05:36 Total Bilirubin 0.6 mg/dL (0.2-1.0) 10/06/17 05:36 AST 21 IU/L (10-42) 10/06/17 05:36 ALT 18 IU/L (10-60) 10/06/17 05:36 Alkaline Phosphatase 39 IU/L (42-121) L 10/06/17 05:36 Total Protein 5.9 g/dL (6.7-8.2) L 10/06/17 05:36 Albumin 3.0 g/dL (3.2-5.5) L 10/06/17 05:36 Globulin 2.9 g/dL (2.1-4.2) 10/06/17 05:36 Albumin/Globulin Ratio 1.0 (1.0-2.2) 10/06/17 05:36 Lipase 20 U/L (22-51) L 10/05/17 18:22 ABX Reporting Has patient been on IV antibiotics over the past 48 hours?: No Current Medications - Current Medications Current Medications: Active Medications Generic Name Dose Route Start Last Admin Trade Name Freq PRN Reason Stop Dose Admin Enalaprilat 0.625 mg 10/06/17 00:00 10/06/17 12:42 Vasotec Inj IVP Not Given Q6HR MARIVEL Enoxaparin Sodium 40 mg 10/06/17 09:00 10/06/17 10:00 Lovenox SUBQ 40 mg DAILY MARIVEL Administration Sodium Chloride 1,000 mls @ 100 mls/hr 10/05/17 21:00 10/06/17 08:34 Normal Saline 0.9% IV 100 mls/hr .Q10H MARIVEL Administration Acetaminophen 100 mls @ 400 mls/hr 10/05/17 21:09 Ofirmev IV Q6HR PRN PAIN Insulin Human Regular 1 - 5 unit 10/06/17 00:00 10/06/17 12:40 Novolin R SUBQ Not Given Q6HR MARIVEL Protocol Lorazepam 0.5 mg 10/05/17 23:55 10/06/17 00:32 Ativan Inj (Vial) IVP 0.5 mg QPM PRN Administration Insomnia Morphine Sulfate 2 mg 10/05/17 21:00 10/06/17 10:00 Morphine IVP 2 mg Q2H PRN Administration Pain 8 to 10 Ondansetron HCl 4 mg 10/05/17 21:00 10/06/17 10:00 Zofran Inj IVP 4 mg Q6HR PRN Administration Nausea / Vomiting Polyethylene Glycol 17 gm 10/06/17 09:00 10/06/17 10:02 Miralax PO 17 gm DAILY MARIVEL Administration Prochlorperazine Edisylate 10 mg 10/05/17 21:00 Compazine Inj IVP Q6HR PRN Nausea / Vomiting Sodium Chloride 10 ml 10/05/17 21:00 07/16/18 06:50 Normal Saline Flush 0.9% IVP 10 ml PRN PRN Administration NEEDED PER PROVIDER ORDERS Sodium Chloride 10 ml 10/06/17 01:00 10/06/17 10:00 Normal Saline Flush 0.9% IVP Not Given 0100,0900,1700 [facility] Zolpidem Tartrate 5 mg 10/05/17 21:00 Ambien PO QPM PRN Insomnia Furosemide 1 tab PO BID 04/15/16 Losartan Potassium 50 mg PO BID 04/15/16 traMADol [Ultram] 1 - 2 tab PO QPM PRN 04/15/16 Calcium Carbonate [Tums (Calcium Carbonate 500mg)] 500 - 1,000 mg PO Q4H PRN Cholecalciferol [Vitamin D3] 5,000 unit PO DAILY 10/05/17 Gabapentin 900 mg PO QPM 10/05/17 Zolpidem Tartrate [Ambien] 10 mg PO QPM PRN 10/05/17 Docusate Sodium 250Mg Capsule [Colace 250Mg Capsule] 250 mg PO BID PRN 10/06/17
[2017-10-06] MEDS: ACETAMINOPHEN 1,000 MG/100 ML 100 ML IV PRN (18:26)
[2017-10-07] MEDS: ENALAPRILAT 1.25 MG/ML VIAL IVP SCH ×5 (00:36→23:42)
[2017-10-07] MEDS: MORPHINE 2 MG/ML SYRINGE IVP PRN ×6 (00:36→19:15)
[2017-10-07] MEDS: SODIUM CHLORIDE FLUSH 0.9% 10 ML SYRINGE IVP PRN ×3 (00:36→06:19)
[2017-10-07] MEDS: LORazepam 2 MG/ML VIAL IVP PRN (00:46)
[2017-10-07] MEDS: PANTOPRAZOLE 40 MG VIAL IVP SCH ×2 (01:18→06:19)
[2017-10-07] MEDS: INSULIN REGULAR HUMAN 100 UNIT/1 ML 10 ML MDV SUBQ SCH ×3 (05:37→18:37)
[2017-10-07 05:51] LABS: BASOPHILS % (AUTO) 0.3 %; EOSINOPHILS # (AUTO) 0.2 10^3/uL (0.0-0.7); EOSINOPHILS % (AUTO) 2.7 %; HGB - HEMOGLOBIN 8.5 g/dL (14.0-18.0); LYMPHOCYTES # (AUTO) 0.9 10^3/uL (1.5-3.5); LYMPHOCYTES % (AUTO) 13.5 %; MEAN CORPUSCULAR HEMOGLOBIN 20.4 pg (27.0-31.0); MEAN CORPUSCULAR HGB CONC 29.7 g/dL (32.0-36.0); MEAN CORPUSCULAR VOLUME 68.7 fL (80.0-94.0); MEAN PLATELET VOLUME 7.4 fL (7.4-11.4); MONOCYTES # (AUTO) 0.7 10^3/uL (0.0-1.0); MONOCYTES % (AUTO) 11.5 %; NEUTROPHILS # (AUTO) 4.7 10^3/uL (1.5-6.6); PLT - PLATELET COUNT 345 10^3/uL (130-450); RED BLOOD COUNT 4.17 10^6/uL (4.70-6.10); RED CELL DISTRIBUTION WIDTH 18.7 % (12.0-15.0); WHITE BLOOD COUNT 6.5 x10^3/uL (4.8-10.8)
[2017-10-07 05:55] LABS: ALBUMIN 3.2 g/dL (3.2-5.5); ALBUMIN/GLOBULIN RATIO 1.1 (1.0-2.2); BILIRUBIN,TOTAL 0.8 mg/dL (0.2-1.0); CALCIUM 8.9 mg/dL (8.5-10.3); CREATININE 2.5 mg/dL (0.6-1.2); TOTAL PROTEIN 6.2 g/dL (6.7-8.2)
--- NOTE | 2017-10-07 07:23 | PROVIDER PROGRESS NOTE ---
Assessment/Plan - Problem List (1) Anemia Qualifiers: Anemia type: unspecified type Qualified Code(s): D64.9 - Anemia, unspecified Assessment/Plan: Microcytic; needs eval for possible iron deficiency; if present pt needs EGD/ colon. (2) Small bowel obstruction Assessment/Plan: Clinically improved; rec: start clear liquid diet and advance as tolerated to low residue. - Current Meds Current Meds: Current Medications Generic Name Dose Route Start Last Admin Trade Name Freq PRN Reason Stop Dose Admin Enalaprilat 0.625 mg 10/06/17 00:00 10/07/17 06:19 Vasotec Inj IVP 0.625 mg Q6HR MARIVEL Administration Enoxaparin Sodium 40 mg 10/06/17 09:00 10/06/17 10:00 Lovenox SUBQ 40 mg DAILY MARIVEL Administration Sodium Chloride 1,000 mls @ 100 mls/hr 10/05/17 21:00 10/06/17 21:02 Normal Saline 0.9% IV 100 mls/hr .Q10H MARIVEL Administration Acetaminophen 100 mls @ 400 mls/hr 10/05/17 21:09 10/06/17 19:31 Ofirmev IV Infused Q6HR PRN Infusion PAIN Insulin Human Regular 1 - 5 unit 10/06/17 00:00 10/07/17 05:37 Novolin R SUBQ Not Given Q6HR MARIVEL Protocol Lorazepam 0.5 mg 10/05/17 23:55 10/07/17 00:46 Ativan Inj (Vial) IVP 0.5 mg QPM PRN Administration Insomnia Morphine Sulfate 2 mg 10/05/17 21:00 10/07/17 04:21 Morphine IVP 2 mg Q2H PRN Administration Pain 8 to 10 Ondansetron HCl 4 mg 10/05/17 21:00 10/06/17 10:00 Zofran Inj IVP 4 mg Q6HR PRN Administration Nausea / Vomiting Pantoprazole Sodium 40 mg 10/07/17 01:00 10/07/17 06:19 Protonix IVP 40 mg QDAC MARIVEL Administration Polyethylene Glycol 17 gm 10/06/17 09:00 10/06/17 10:02 Miralax PO 17 gm DAILY MARIVEL Administration Sodium Chloride 10 ml 10/05/17 21:00 10/07/17 06:19 Normal Saline Flush 0.9% IVP 10 ml PRN PRN Administration NEEDED PER PROVIDER ORDERS Sodium Chloride 10 ml 10/06/17 01:00 10/06/17 23:40 Normal Saline Flush 0.9% IVP Not Given 0100,0900,1700 [facility] - Lab Result Lab results reviewed: Yes Fish Bone Diagrams: 10/07/17 05:27 10/07/17 05:27 - Diagnostic Imaging Results Diagnostic Imaging Results: Read independently Diagnostic Imaging Results Comments: gastrograffing UGI series shows contrast into rectum at 15 hours - Additional Planning Condition/Complexity: Improved Plan Discussed with:: Patient Time Spent: 15-30 minutes Subjective - Subjective Patient Reports: Feeling Better (hungry), Abdominal Pain (mild intermittent), Diarrhea (multiple stools overnight, nonbloody), Nausea (mild, intermittent) Objective Vital Signs: Vital Signs - 24 hr 10/06/17 10/06/17 10/06/17 08:00 16:26 17:00 Temperature 36.5 C 36.5 C 36.3 C L Heart Rate [ 63 65 71 Brachial] Respiratory 20 16 17 Rate Blood Pressure 114/71 127/71 127/80 [Right Brachial artery] Blood Pressure [Right Radial artery] O2 Saturation 100 98 100 10/06/17 10/06/17 18:07 23:30 Temperature 36.7 C 36.5 C Heart Rate [ 79 64 Brachial] Respiratory 16 18 Rate Blood Pressure 102/52 L [Right Brachial artery] Blood Pressure 129/65 [Right Radial artery] O2 Saturation 96 100 Oxygen O2 Source Nasal cannula I&O (Last 24 Hrs): Intake and Output Totals x24h 10/05/17 10/06/17 10/07/17 23:59 23:59 23:59 Intake Total 3300 Balance 3300 General: Alert, Oriented x3, Cooperative Abdomen: Normal bowel sounds, Soft, No tenderness - Results Results: Laboratory Results WBC 6.5 x10^3/uL (4.8-10.8) 10/07/17 05:27 RBC 4.17 10^6/uL (4.70-6.10) L 10/07/17 05:27 Hgb 8.5 g/dL (14.0-18.0) L 10/07/17 05:27 Hct 28.6 % (42.0-52.0) L 10/07/17 05:27 MCV 68.7 fL (80.0-94.0) L 10/07/17 05:27 MCH 20.4 pg (27.0-31.0) L 10/07/17 05:27 MCHC 29.7 g/dL (32.0-36.0) L 10/07/17 05:27 RDW 18.7 % (12.0-15.0) H 10/07/17 05:27 Plt Count 345 10^3/uL (130-450) 10/07/17 05:27 MPV 7.4 fL (7.4-11.4) 10/07/17 05:27 Neut # (Auto) 4.7 10^3/uL (1.5-6.6) 10/07/17 05:27 Lymph # (Auto) 0.9 10^3/uL (1.5-3.5) L 10/07/17 05:27 [place] # (Auto) 0.7 10^3/uL (0.0-1.0) 10/07/17 05:27 Eos # (Auto) 0.2 10^3/uL (0.0-0.7) 10/07/17 05:27 Baso # (Auto) 0.0 10^3/uL (0.0-0.1) 10/07/17 05:27 Absolute Nucleated RBC 0.00 x10^3/uL 10/07/17 05:27 Nucleated RBC % 0.0 /100WBC 10/07/17 05:27 Manual Slide Review Indicated 10/06/17 05:36 Platelet Estimate NORMAL (130-450,000) (NORMAL) 10/06/17 05:36 Platelet Morphology 1+ LARGE PLATELETS (NORMAL) 10/06/17 05:36 RBC Morph Micro Appear 2+ ANISOCYTOSIS (NORMAL) 3+ HYPOCHROMASIA (NORMAL) 2 + MICROCYTOSIS (NORMAL) 2+ POIKILOCYTOSIS (NORMAL) 10/05/17 18:22 RBC Morph Micro Appear 2+ ANISOCYTOSIS (NORMAL) 3+ HYPOCHROMASIA (NORMAL) 2 + MICROCYTOSIS (NORMAL) 2+ POIKILOCYTOSIS (NORMAL) 10/05/17 18:22 RBC Morph Micro Appear 2+ ANISOCYTOSIS (NORMAL) 3+ HYPOCHROMASIA (NORMAL) 2 + MICROCYTOSIS (NORMAL) 2+ POIKILOCYTOSIS (NORMAL) 10/05/17 18:22 RBC Morph Micro Appear 3+ HYPOCHROMASIA (NORMAL) 2+ MICROCYTOSIS (NORMAL) 1+ POLYCHROMASIA (NORMAL) 1+ ANISOCYTOSIS (NORMAL) 10/06/17 05:36 RBC Morph Micro Appear 3+ HYPOCHROMASIA (NORMAL) 2+ MICROCYTOSIS (NORMAL) 1+ POLYCHROMASIA (NORMAL) 1+ ANISOCYTOSIS (NORMAL) 10/06/17 05:36 RBC Morph Micro Appear 3+ HYPOCHROMASIA (NORMAL) 2+ MICROCYTOSIS (NORMAL) 1+ POLYCHROMASIA (NORMAL) 1+ ANISOCYTOSIS (NORMAL) 10/06/17 05:36 RBC Morph Micro Appear 3+ HYPOCHROMASIA (NORMAL) 2+ MICROCYTOSIS (NORMAL) 1+ POLYCHROMASIA (NORMAL) 1+ ANISOCYTOSIS (NORMAL) 10/06/17 05:36 VBG pH 7.480 (7.31-7.41) H 10/05/17 18:22 VBG pCO2 54.5 mmHg (41-51) H 10/05/17 18:22 VBG pO2 41.9 mmHg (25-47) 10/05/17 18:22 VBG HCO3 39.7 mmol/L (23-28) H 10/05/17 18:22 VBG Total CO2 41.3 mmol/L (24-29) H 10/05/17 18:22 VBG O2 Saturation 78.9 % (60-80) 10/05/17 18:22 VBG Base Excess 14.3 mmol/L (-2 - +2) H 10/05/17 18:22 Ionized Calcium 1.21 mmol/L (1.15-1.33) 10/05/17 18:22 Sodium 144 mmol/L (135-145) 10/07/17 05:27 Potassium 3.4 mmol/L (3.5-5.0) L 10/07/17 05:27 Chloride 97 mmol/L (101-111) L 10/07/17 05:27 Carbon Dioxide 37 mmol/L (21-32) H 10/07/17 05:27 Anion Gap 10.0 (6-13) 10/07/17 05:27 BUN 46 mg/dL (6-20) H 10/07/17 05:27 Creatinine 2.5 mg/dL (0.6-1.2) H 10/07/17 05:27 Estimated GFR (MDRD) 26 (>89) L 10/07/17 05:27 Glucose 97 mg/dL (70-100) 10/07/17 05:27 Glycated Hemoglobin 5.4 % (4.6-6.2) 10/06/17 05:36 Estim Average Glucose 108 (70-100) H 10/06/17 05:36 Lactic Acid 1.4 mmol/L (0.5-2.2) 10/05/17 18:22 Calcium 8.9 mg/dL (8.5-10.3) 10/07/17 05:27 Total Bilirubin 0.8 mg/dL (0.2-1.0) 10/07/17 05:27 AST 21 IU/L (10-42) 10/07/17 05:27 ALT 18 IU/L (10-60) 10/07/17 05:27 Alkaline Phosphatase 46 IU/L (42-121) 10/07/17 05:27 Total Protein 6.2 g/dL (6.7-8.2) L 10/07/17 05:27 Albumin 3.2 g/dL (3.2-5.5) 10/07/17 05:27 Globulin 3.0 g/dL (2.1-4.2) 10/07/17 05:27 Albumin/Globulin Ratio 1.1 (1.0-2.2) 10/07/17 05:27 Lipase 20 U/L (22-51) L 10/05/17 18:22 ABX Reporting Has patient been on IV antibiotics over the past 48 hours?: No
[2017-10-07 07:28] LABS: MEAN RETIC VALUE 106.2; RED BLOOD COUNT 4.17 10^6/uL (4.70-6.10)
[2017-10-07] MEDS: ONDANSETRON 4 MG/2 ML VIAL IVP PRN ×2 (07:40→15:52)
[2017-10-07] MEDS ORDERED: DIATR MEGLU/DIATRIZOATE SODIUM 120 ML BOTTLE PO ONE (07:51)
[2017-10-07 07:54] LABS: FERRITIN 10.9 ng/mL (23.9-336.2)
[2017-10-07 07:59] LABS: % IRON SATURATION 7 % (20-50); IRON 24 ug/dL (45-182); TOTAL IRON BINDING CAPACITY 350 ug/dL (250-450); TRANSFERRIN 250 mg/dL (180-329)
--- NOTE | 2017-10-07 08:44 | XRAY Report ---
Procedure Date: 10/07/2017 Accession Number: [id number] / [id number] Procedure: [place] - Small Bowel Follow Through CPT Code: FULL RESULT: EXAM: Small Bowel Follow Through DATE: 10/07/2017 8:24 AM CLINICAL HISTORY: Small bowel obstruction COMPARISON: None. TECHNIQUE: The patient was administered 240 mL of undiluted Gastrografin contrast by mouth. Sequential spot fluoroscopic images and abdominal radiographs were then taken over a time period of approximately 15 hours in intervals. Fluoroscopic exposure time: 0 minutes. Number of fluoroscopic images: 15 individual flat plate images. FINDINGS: For reference manager balance images, please refer to the abdominal radiograph obtained shortly before the initiation of the procedure which is dictated separately. Initial radiograph following administration of contrast demonstrates oral contrast in the stomach and duodenum with dilated small bowel loops throughout the abdomen measuring up to 6.2 cm. A scant amount of gas is also seen at the splenic flexure of the large bowel. Real-time contrast is eventually seen to breast into the large bowel including distal rectosigmoid. Small bowel dilatation remains on the final image. IMPRESSION: Partial small bowel obstruction with progression of contrast to large bowel. Recommend interval serial abdominal radiography until the patient successfully passes gas to assure resolution of obstruction. RADIA
[2017-10-07] MEDS: SODIUM CHLORIDE 0.9% 1,000 ML IV SCH ×2 (08:58→18:56)
[2017-10-07] MEDS: POLYETHYLENE GLYCOL 3350 17 GM PACKET PO SCH (08:59)
[2017-10-07] MEDS: SODIUM CHLORIDE FLUSH 0.9% 10 ML SYRINGE IVP SCH ×2 (08:59→15:55)
[2017-10-07] MEDS: ENOXAPARIN 40 MG/0.4 ML SYRINGE SUBQ SCH (09:58)
[2017-10-07] MEDS: PROCHLORPERAZINE 10 MG/2 ML VIAL IVP PRN (14:11)
--- NOTE | 2017-10-07 15:08 | PROVIDER PROGRESS NOTE ---
Assessment/Plan - Problem List (1) Small bowel obstruction Assessment/Plan: SBFT had appearance in colon, therefore a po diet was ordered. He still has nausea and abdominal pain. Continue symptomatic treatment. information systems consultant following allong. (2) Syncope Qualifiers: Syncope type: unspecified Qualified Code(s): R55 - Syncope and collapse Assessment/Plan: Likely from orthostasis from vilume depletion from vomiting pre-admission for many days. Continue present plan of peripheral hydeation and advance diet as tolerated. (3) Hypertension Qualifiers: Hypertension type: essential hypertension Qualified Code(s): I10 - Essential (primary) hypertension Assessment/Plan: Controlled with iv meds. po meds on hold (4) Acute on chronic renal failure Assessment/Plan: Rising creat and intravascular volume depletion suspected, from previous vomiting. Will increase iv NS from 100 cc/hr to 150 cc/hr. (5) Morbid obesity Assessment/Plan: BMI >50. Pt's diet is restarting. (6) Chronic diastolic heart failure Assessment/Plan: Echo done here shows normal LVEF but diastolic dysfunction present. (7) Anemia Qualifiers: Anemia type: iron deficiency Assessment/Plan: Will check guaic stool (when he starts) as Iron panel showed low iron stores. Start po Ferrous Gluconate when he tolerates solids po. Monitor CBC daily, as he may get dilutional worsening of anemia and need a transfusion. (8) MAR (obstructive sleep apnea) Assessment/Plan: Pt only uses nocturnal O2 per nasal cannula, per admisssion notes. (9) Diabetes type 2, controlled Qualifiers: Diabetes mellitus terminal gauger supervisor insulin use: without terminal gauger supervisor use Diabetes mellitus complication status: without complication Qualified Code(s): E11.9 - Type 2 diabetes mellitus without complications Assessment/Plan: Diet controlled DM and no oral antidiabetic meds at home. Pt to start a diet today. Continue to monitor POC glu. (10) Lymphedema Assessment/Plan: Per pt he has chronic lymphedema, severe enough to cause urinary stream to be poor. 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 Will resume when he tolerates solid food. - Current Meds Current Meds: Current Medications Generic Name Dose Route Start Last Admin Trade Name Freq PRN Reason Stop Dose Admin Enalaprilat 0.625 mg 10/06/17 00:00 10/07/17 12:45 Vasotec Inj IVP Not Given Q6HR [facility]IVEL Enoxaparin Sodium 40 mg 10/06/17 09:00 10/07/17 09:58 Lovenox SUBQ 40 mg DAILY MARIVEL Administration Sodium Chloride 1,000 mls @ 100 mls/hr 10/05/17 21:00 10/07/17 08:58 Normal Saline 0.9% IV 100 mls/hr .Q10H MARIVEL Administration Acetaminophen 100 mls @ 400 mls/hr 10/05/17 21:09 10/06/17 19:31 Ofirmev IV Infused Q6HR PRN Infusion PAIN Insulin Human Regular 1 - 5 unit 10/06/17 00:00 10/07/17 12:45 Novolin R SUBQ Not Given Q6HR [facility] Protocol Lorazepam 0.5 mg 10/05/17 23:55 10/07/17 00:46 Ativan Inj (Vial) IVP 0.5 mg QPM PRN Administration Insomnia Morphine Sulfate 2 mg 10/05/17 21:00 10/07/17 11:01 Morphine IVP 2 mg Q2H PRN Administration Pain 8 to 10 Ondansetron HCl 4 mg 10/05/17 21:00 10/07/17 07:40 Zofran Inj IVP 4 mg Q6HR PRN Administration Nausea / Vomiting Pantoprazole Sodium 40 mg 10/07/17 01:00 10/07/17 06:19 Protonix IVP 40 mg QDAC MARIVEL Administration Polyethylene Glycol 17 gm 10/06/17 09:00 10/07/17 08:59 Miralax PO Not Given DAILY [facility] Prochlorperazine Edisylate 10 mg 10/05/17 21:00 10/07/17 14:11 Compazine Inj IVP 10 mg Q6HR PRN Administration Nausea / Vomiting Sodium Chloride 10 ml 10/05/17 21:00 10/07/17 06:19 Normal Saline Flush 0.9% IVP 10 ml PRN PRN Administration NEEDED PER PROVIDER ORDERS Sodium Chloride 10 ml 10/06/17 01:00 10/07/17 08:59 Normal Saline Flush 0.9% IVP Not Given 0100,0900,1700 MARIVEL - Lab Result Fish Bone Diagrams: 10/07/17 05:27 10/07/17 05:27 - Additional Planning My Orders: My Active Orders 10/08/17 05:00 BMP - BASIC METABOLIC PANEL [CHEM] DAILYLAB 10/09/17 05:00 BMP - BASIC METABOLIC PANEL [CHEM] DAILYLAB 10/10/17 05:00 BMP - BASIC METABOLIC PANEL [CHEM] DAILYLAB Subjective - Subjective Patient Reports: Abdominal Pain, Nausea Nursing Reports: Other (Was able to eat pureed bites this am.) Objective Vital Signs: Vital Signs - 24 hr 10/06/17 10/06/17 10/06/17 16:26 17:00 18:07 Temperature 36.5 C 36.3 C L 36.7 C Heart Rate [ 65 71 79 Brachial] Respiratory 16 17 16 Rate Blood Pressure 127/71 127/80 102/52 L [Right Brachial artery] Blood Pressure [Right Radial artery] O2 Saturation 98 100 96 10/06/17 10/07/17 23:30 07:39 Temperature 36.5 C 36.4 C L Heart Rate [ 64 73 Brachial] Respiratory 18 18 Rate Blood Pressure [Right Brachial artery] Blood Pressure 129/65 116/96 H [Right Radial artery] O2 Saturation 100 100 Oxygen O2 Source Nasal cannula I&O (Last 24 Hrs): Intake and Output Totals x24h 10/05/17 10/06/17 10/07/17 23:59 23:59 23:59 Intake Total 3300 2600 Balance 3300 2600 General: Alert, Oriented x3 HEENT: Mucous membr. moist/pink Neck: Supple, No JVD Neuro: Non Focal Cardiovascular: No murmurs Respiratory: No respiratory distress Abdomen: Other (Obese with pannus, Pos bowel sounds, non-tender to light palpation) Extremities: Other (1+ edema) - Results Results: Laboratory Results WBC 6.5 x10^3/uL (4.8-10.8) 10/07/17 05:27 RBC 4.17 10^6/uL (4.70-6.10) L 10/07/17 05:27 Hgb 8.5 g/dL (14.0-18.0) L 10/07/17 05:27 Hct 28.6 % (42.0-52.0) L 10/07/17 05:27 MCV 68.7 fL (80.0-94.0) L 10/07/17 05:27 MCH 20.4 pg (27.0-31.0) L 10/07/17 05:27 MCHC 29.7 g/dL (32.0-36.0) L 10/07/17 05:27 RDW 18.7 % (12.0-15.0) H 10/07/17 05:27 Plt Count 345 10^3/uL (130-450) 10/07/17 05:27 MPV 7.4 fL (7.4-11.4) 10/07/17 05:27 Reticulocyte % (Auto) 1.18 % (0.5-2.3) 10/07/17 05:27 Neut # (Auto) 4.7 10^3/uL (1.5-6.6) 10/07/17 05:27 Lymph # (Auto) 0.9 10^3/uL (1.5-3.5) L 10/07/17 05:27 [place] # (Auto) 0.7 10^3/uL (0.0-1.0) 10/07/17 05:27 Eos # (Auto) 0.2 10^3/uL (0.0-0.7) 10/07/17 05:27 Baso # (Auto) 0.0 10^3/uL (0.0-0.1) 10/07/17 05:27 Absolute Nucleated RBC 0.00 x10^3/uL 10/07/17 05:27 Nucleated RBC % 0.0 /100WBC 10/07/17 05:27 Manual Slide Review Indicated 10/06/17 05:36 Platelet Estimate NORMAL (130-450,000) (NORMAL) 10/06/17 05:36 Platelet Morphology 1+ LARGE PLATELETS (NORMAL) 10/06/17 05:36 RBC Morph Micro Appear 2+ ANISOCYTOSIS (NORMAL) 3+ HYPOCHROMASIA (NORMAL) 2 + MICROCYTOSIS (NORMAL) 2+ POIKILOCYTOSIS (NORMAL) 10/05/17 18:22 RBC Morph Micro Appear 2+ ANISOCYTOSIS (NORMAL) 3+ HYPOCHROMASIA (NORMAL) 2 + MICROCYTOSIS (NORMAL) 2+ POIKILOCYTOSIS (NORMAL) 10/05/17 18:22 RBC Morph Micro Appear 2+ ANISOCYTOSIS (NORMAL) 3+ HYPOCHROMASIA (NORMAL) 2 + MICROCYTOSIS (NORMAL) 2+ POIKILOCYTOSIS (NORMAL) 10/05/17 18:22 RBC Morph Micro Appear 3+ HYPOCHROMASIA (NORMAL) 2+ MICROCYTOSIS (NORMAL) 1+ POLYCHROMASIA (NORMAL) 1+ ANISOCYTOSIS (NORMAL) 10/06/17 05:36 RBC Morph Micro Appear 3+ HYPOCHROMASIA (NORMAL) 2+ MICROCYTOSIS (NORMAL) 1+ POLYCHROMASIA (NORMAL) 1+ ANISOCYTOSIS (NORMAL) 10/06/17 05:36 RBC Morph Micro Appear 3+ HYPOCHROMASIA (NORMAL) 2+ MICROCYTOSIS (NORMAL) 1+ POLYCHROMASIA (NORMAL) 1+ ANISOCYTOSIS (NORMAL) 10/06/17 05:36 RBC Morph Micro Appear 3+ HYPOCHROMASIA (NORMAL) 2+ MICROCYTOSIS (NORMAL) 1+ POLYCHROMASIA (NORMAL) 1+ ANISOCYTOSIS (NORMAL) 10/06/17 05:36 Absolute Retic 0.049 10^6/uL (0.020-0.110) 10/07/17 05:27 VBG pH 7.480 (7.31-7.41) H 10/05/17 18:22 VBG pCO2 54.5 mmHg (41-51) H 10/05/17 18:22 VBG pO2 41.9 mmHg (25-47) 10/05/17 18:22 VBG HCO3 39.7 mmol/L (23-28) H 10/05/17 18:22 VBG Total CO2 41.3 mmol/L (24-29) H 10/05/17 18:22 VBG O2 Saturation 78.9 % (60-80) 10/05/17 18:22 VBG Base Excess 14.3 mmol/L (-2 - +2) H 10/05/17 18:22 Ionized Calcium 1.21 mmol/L (1.15-1.33) 10/05/17 18:22 Sodium 144 mmol/L (135-145) 10/07/17 05:27 Potassium 3.4 mmol/L (3.5-5.0) L 10/07/17 05:27 Chloride 97 mmol/L (101-111) L 10/07/17 05:27 Carbon Dioxide 37 mmol/L (21-32) H 10/07/17 05:27 Anion Gap 10.0 (6-13) 10/07/17 05:27 BUN 46 mg/dL (6-20) H 10/07/17 05:27 Creatinine 2.5 mg/dL (0.6-1.2) H 10/07/17 05:27 Estimated GFR (MDRD) 26 (>89) L 10/07/17 05:27 Glucose 97 mg/dL (70-100) 10/07/17 05:27 Glycated Hemoglobin 5.4 % (4.6-6.2) 10/06/17 05:36 Estim Average Glucose 108 (70-100) H 10/06/17 05:36 Lactic Acid 1.4 mmol/L (0.5-2.2) 10/05/17 18:22 Calcium 8.9 mg/dL (8.5-10.3) 10/07/17 05:27 Iron 24 ug/dL (45-182) L 10/07/17 05:27 TIBC 350 ug/dL (250-450) 10/07/17 05:27 % Saturation 7 % (20-50) L 10/07/17 05:27 Transferrin 250 mg/dL (180-329) 10/07/17 05:27 Ferritin 10.9 ng/mL (23.9-336.2) L 10/07/17 05:27 Total Bilirubin 0.8 mg/dL (0.2-1.0) 10/07/17 05:27 AST 21 IU/L (10-42) 10/07/17 05:27 ALT 18 IU/L (10-60) 10/07/17 05:27 Alkaline Phosphatase 46 IU/L (42-121) 10/07/17 05:27 Lactate Dehydrogenase 125 IU/L (91-225) 10/07/17 05:27 Total Protein 6.2 g/dL (6.7-8.2) L 10/07/17 05:27 Albumin 3.2 g/dL (3.2-5.5) 10/07/17 05:27 Globulin 3.0 g/dL (2.1-4.2) 10/07/17 05:27 Albumin/Globulin Ratio 1.1 (1.0-2.2) 10/07/17 05:27 Lipase 20 U/L (22-51) L 10/05/17 18:22 Vitamin B12 375 pg/mL (180-914) 10/07/17 05:27 ABX Reporting Has patient been on IV antibiotics over the past 48 hours?: No
[2017-10-07] MEDS: ACETAMINOPHEN 1,000 MG/100 ML 100 ML IV PRN ×2 (15:51→22:04)
[2017-10-07] MEDS: ZOLPIDEM 5 MG TABLET PO PRN (22:08)
[2017-10-08] MEDS: SODIUM CHLORIDE FLUSH 0.9% 10 ML SYRINGE IVP SCH ×3 (00:27→19:41)
[2017-10-08] MEDS: SODIUM CHLORIDE 0.9% 1,000 ML IV SCH ×2 (02:18→20:02)
[2017-10-08 04:10] LABS: HEMOGLOBIN A1C 0.3 g/dL; HEMOGLOBIN A1C % 5.6 % (4.6-6.2)
[2017-10-08 06:12] LABS: BASOPHILS % (AUTO) 0.4 %; EOSINOPHILS # (AUTO) 0.1 10^3/uL (0.0-0.7); HGB - HEMOGLOBIN 8.4 g/dL (14.0-18.0); LYMPHOCYTES # (AUTO) 0.9 10^3/uL (1.5-3.5); LYMPHOCYTES % (AUTO) 11.3 %; MEAN CORPUSCULAR HEMOGLOBIN 20.5 pg (27.0-31.0); MEAN CORPUSCULAR HGB CONC 29.5 g/dL (32.0-36.0); MEAN PLATELET VOLUME 7.7 fL (7.4-11.4); MONOCYTES # (AUTO) 0.8 10^3/uL (0.0-1.0); MONOCYTES % (AUTO) 9.8 %; NEUTROPHILS # (AUTO) 6.1 10^3/uL (1.5-6.6); NEUTROPHILS % (AUTO) 77.5 %; PLT - PLATELET COUNT 330 10^3/uL (130-450); RED BLOOD COUNT 4.08 10^6/uL (4.70-6.10); RED CELL DISTRIBUTION WIDTH 19.3 % (12.0-15.0); WHITE BLOOD COUNT 7.9 x10^3/uL (4.8-10.8)
[2017-10-08 06:16] LABS: CALCIUM 7.9 mg/dL (8.5-10.3); CREATININE 2.1 mg/dL (0.6-1.2)
[2017-10-08 06:18] LABS: MEAN CORPUSCULAR VOLUME 69.6 fL (80.0-94.0)
[2017-10-08] MEDS: ENALAPRILAT 1.25 MG/ML VIAL IVP SCH (06:55)
[2017-10-08] MEDS: SODIUM CHLORIDE FLUSH 0.9% 10 ML SYRINGE IVP PRN (06:55)
[2017-10-08] MEDS: PANTOPRAZOLE 40 MG VIAL IVP SCH (06:55)
[2017-10-08] MEDS: ACETAMINOPHEN 1,000 MG/100 ML 100 ML IV PRN (07:07)
[2017-10-08] MEDS: POLYETHYLENE GLYCOL 3350 17 GM PACKET PO SCH (07:40)
[2017-10-08] MEDS: INSULIN ASPART 300 UNIT/3 ML PEN SUBQ SCH ×4 (07:40→20:45)
[2017-10-08] MEDS: MORPHINE 2 MG/ML SYRINGE IVP PRN (08:47)
[2017-10-08] MEDS: ENOXAPARIN 40 MG/0.4 ML SYRINGE SUBQ SCH (08:48)
[2017-10-08] MEDS ORDERED: DOCUSATE SODIUM 250 MG CAPSULE PO PRN (10:14)
[2017-10-08] MEDS ORDERED: traMADol 50 MG TABLET PO PRN (10:14)
[2017-10-08] MEDS ORDERED: CALCIUM CARBONATE CHEW 500 MG TABLET PO PRN (10:14)
[2017-10-08] MEDS ORDERED: ZOLPIDEM 5 MG TABLET PO PRN (10:45)
[2017-10-08] MEDS: ACETAMINOPHEN/CODEINE 300 MG/30 MG TABLET PO PRN ×2 (11:59→20:48)
[2017-10-08] MEDS: SUCRALFATE 1 GM/10 ML UDC PO SCH ×3 (12:01→21:43)
--- NOTE | 2017-10-08 17:11 | PROVIDER PROGRESS NOTE ---
Assessment/Plan - Problem List (1) Anemia Qualifiers: Anemia type: iron deficiency Assessment/Plan: upper and lower gi sources should be considered. Rec: EGD/colon as outpt; pt declines colonoscopy at this time but would accept EGD. (2) Small bowel obstruction Assessment/Plan: Clinically improving. Rec: continue low residue diet as tolerated; poss home soon if continues to improve. - Current Meds Current Meds: Current Medications Generic Name Dose Route Start Last Admin Trade Name Freq PRN Reason Stop Dose Admin Acetaminophen/Codeine Phosphate 2 tab 10/08/17 10:16 10/08/17 11:59 Tylenol #3 PO 2 tab Q4HR PRN Administration PAIN Enoxaparin Sodium 40 mg 10/06/17 09:00 10/08/17 08:48 Lovenox SUBQ 40 mg DAILY [facility]IVEL Administration Insulin Aspart 1 - 5 unit 10/08/17 08:00 10/08/17 17:02 Novolog SUBQ Not Given 0800,1200,1700,2100 [facility] Protocol Lorazepam 0.5 mg 10/05/17 23:55 10/07/17 00:46 Ativan Inj (Vial) IVP 0.5 mg QPM PRN Administration Insomnia Morphine Sulfate 2 mg 10/05/17 21:00 10/08/17 08:47 Morphine IVP 2 mg Q2H PRN Administration Pain 8 to 10 Ondansetron HCl 4 mg 10/05/17 21:00 10/07/17 15:52 Zofran Inj IVP 4 mg Q6HR PRN Administration Nausea / Vomiting Polyethylene Glycol 17 gm 10/06/17 09:00 10/08/17 07:40 Miralax PO Not Given DAILY [facility] Prochlorperazine Edisylate 10 mg 10/05/17 21:00 10/07/17 14:11 Compazine Inj IVP 10 mg Q6HR PRN Administration Nausea / Vomiting Sodium Chloride 10 ml 10/05/17 21:00 10/08/17 06:55 Normal Saline Flush 0.9% IVP 20 ml PRN PRN Administration NEEDED PER PROVIDER ORDERS Sodium Chloride 10 ml 10/06/17 01:00 10/08/17 09:15 Normal Saline Flush 0.9% IVP Not Given 0100,0900,1700 [facility] Sucralfate 1 gm 10/08/17 12:00 10/08/17 15:49 Carafate PO 1 gm 0700,1100,1600,2200 MARIVEL Administration Zolpidem Tartrate 5 mg 10/05/17 21:00 10/07/17 22:08 Ambien PO 5 mg QPM PRN Administration Insomnia - Lab Result Fish Bone Diagrams: 10/08/17 05:40 10/08/17 05:40 Other Lab Results: Iron studies suggestive of iron deficiency anemia - Diagnostic Imaging Results Diagnostic Imaging Results: Final report reviewed, Read independently Diagnostic Imaging Results Comments: gastrograffin small bowel study c/w partial distal SBO, resolving with contrast in rectosigmoid. Subjective - Subjective Patient Reports: Feeling Better, Abdominal Pain (right sided, chronic, related to hernia), Nausea (but no vomiting and tolerating po well) Objective Vital Signs: Vital Signs - 24 hr 10/07/17 10/07/17 10/08/17 18:30 23:35 07:32 Temperature 36.7 C 36.9 C Heart Rate [ 62 78 Brachial] Respiratory 16 20 Rate Blood Pressure 117/58 L [Left Radial artery] Blood Pressure [Right Brachial artery] Blood Pressure 152/67 H 123/52 L [Right Radial artery] O2 Saturation 98 97 10/08/17 10/08/17 14:03 15:51 Temperature 36.5 C Heart Rate [ 79 85 Brachial] Respiratory 20 Rate Blood Pressure [Left Radial artery] Blood Pressure 141/55 H [Right Brachial artery] Blood Pressure [Right Radial artery] O2 Saturation 94 93 Oxygen O2 Source Nasal cannula I&O (Last 24 Hrs): Intake and Output Totals x24h 10/06/17 10/07/17 10/08/17 23:59 23:59 23:59 Intake Total 3300 4300.000 2740 Output Total 1 Balance 3300 4300.000 2739 General: Alert, Oriented x3, Cooperative Abdomen: Normal bowel sounds, Soft, No tenderness, Other (marked truncal obesity ; 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; nontender.) - Results Results: Laboratory Results WBC 7.9 x10^3/uL (4.8-10.8) 10/08/17 05:40 RBC 4.08 10^6/uL (4.70-6.10) L 10/08/17 05:40 Hgb 8.4 g/dL (14.0-18.0) L 10/08/17 05:40 Hct 28.4 % (42.0-52.0) L 10/08/17 05:40 MCV 69.6 fL (80.0-94.0) L 10/08/17 05:40 MCH 20.5 pg (27.0-31.0) L 10/08/17 05:40 MCHC 29.5 g/dL (32.0-36.0) L 10/08/17 05:40 RDW 19.3 % (12.0-15.0) H 10/08/17 05:40 Plt Count 330 10^3/uL (130-450) 10/08/17 05:40 MPV 7.7 fL (7.4-11.4) 10/08/17 05:40 Reticulocyte % (Auto) 1.18 % (0.5-2.3) 10/07/17 05:27 Neut # (Auto) 6.1 10^3/uL (1.5-6.6) 10/08/17 05:40 Lymph # (Auto) 0.9 10^3/uL (1.5-3.5) L 10/08/17 05:40 [place] # (Auto) 0.8 10^3/uL (0.0-1.0) 10/08/17 05:40 Eos # (Auto) 0.1 10^3/uL (0.0-0.7) 10/08/17 05:40 Baso # (Auto) 0.0 10^3/uL (0.0-0.1) 10/08/17 05:40 Absolute Nucleated RBC 0.00 x10^3/uL 10/08/17 05:40 Nucleated RBC % 0.0 /100WBC 10/08/17 05:40 Manual Slide Review Indicated 10/06/17 05:36 Platelet Estimate NORMAL (130-450,000) (NORMAL) 10/06/17 05:36 Platelet Morphology 1+ LARGE PLATELETS (NORMAL) 10/06/17 05:36 RBC Morph Micro Appear 2+ ANISOCYTOSIS (NORMAL) 3+ HYPOCHROMASIA (NORMAL) 2 + MICROCYTOSIS (NORMAL) 2+ POIKILOCYTOSIS (NORMAL) 10/05/17 18:22 RBC Morph Micro Appear 2+ ANISOCYTOSIS (NORMAL) 3+ HYPOCHROMASIA (NORMAL) 2 + MICROCYTOSIS (NORMAL) 2+ POIKILOCYTOSIS (NORMAL) 10/05/17 18:22 RBC Morph Micro Appear 2+ ANISOCYTOSIS (NORMAL) 3+ HYPOCHROMASIA (NORMAL) 2 + MICROCYTOSIS (NORMAL) 2+ POIKILOCYTOSIS (NORMAL) 10/05/17 18:22 RBC Morph Micro Appear 3+ HYPOCHROMASIA (NORMAL) 2+ MICROCYTOSIS (NORMAL) 1+ POLYCHROMASIA (NORMAL) 1+ ANISOCYTOSIS (NORMAL) 10/06/17 05:36 RBC Morph Micro Appear 3+ HYPOCHROMASIA (NORMAL) 2+ MICROCYTOSIS (NORMAL) 1+ POLYCHROMASIA (NORMAL) 1+ ANISOCYTOSIS (NORMAL) 10/06/17 05:36 RBC Morph Micro Appear 3+ HYPOCHROMASIA (NORMAL) 2+ MICROCYTOSIS (NORMAL) 1+ POLYCHROMASIA (NORMAL) 1+ ANISOCYTOSIS (NORMAL) 10/06/17 05:36 RBC Morph Micro Appear 3+ HYPOCHROMASIA (NORMAL) 2+ MICROCYTOSIS (NORMAL) 1+ POLYCHROMASIA (NORMAL) 1+ ANISOCYTOSIS (NORMAL) 10/06/17 05:36 Absolute Retic 0.049 10^6/uL (0.020-0.110) 10/07/17 05:27 VBG pH 7.480 (7.31-7.41) H 10/05/17 18:22 VBG pCO2 54.5 mmHg (41-51) H 10/05/17 18:22 VBG pO2 41.9 mmHg (25-47) 10/05/17 18:22 VBG HCO3 39.7 mmol/L (23-28) H 10/05/17 18:22 VBG Total CO2 41.3 mmol/L (24-29) H 10/05/17 18:22 VBG O2 Saturation 78.9 % (60-80) 10/05/17 18:22 VBG Base Excess 14.3 mmol/L (-2 - +2) H 10/05/17 18:22 Ionized Calcium 1.21 mmol/L (1.15-1.33) 10/05/17 18:22 Sodium 138 mmol/L (135-145) 10/08/17 05:40 Potassium 3.3 mmol/L (3.5-5.0) L 10/08/17 05:40 Chloride 100 mmol/L (101-111) L 10/08/17 05:40 Carbon Dioxide 31 mmol/L (21-32) 10/08/17 05:40 Anion Gap 7.0 (6-13) 10/08/17 05:40 BUN 46 mg/dL (6-20) H 10/08/17 05:40 Creatinine 2.1 mg/dL (0.6-1.2) H 10/08/17 05:40 Estimated GFR (MDRD) 31 (>89) L 10/08/17 05:40 Glucose 97 mg/dL (70-100) 10/08/17 05:40 POC Whole Bld Glucose 89 mg/dL (70 - 100) 10/08/17 11:20 Glycated Hemoglobin 5.6 % (4.6-6.2) 10/07/17 23:50 Estim Average Glucose 114 (70-100) H 10/07/17 23:50 Lactic Acid 1.4 mmol/L (0.5-2.2) 10/05/17 18:22 Calcium 7.9 mg/dL (8.5-10.3) L 10/08/17 05:40 Iron 24 ug/dL (45-182) L 10/07/17 05:27 TIBC 350 ug/dL (250-450) 10/07/17 05:27 % Saturation 7 % (20-50) L 10/07/17 05:27 Transferrin 250 mg/dL (180-329) 10/07/17 05:27 Ferritin 10.9 ng/mL (23.9-336.2) L 10/07/17 05:27 Total Bilirubin 0.8 mg/dL (0.2-1.0) 10/07/17 05:27 AST 21 IU/L (10-42) 10/07/17 05:27 ALT 18 IU/L (10-60) 10/07/17 05:27 Alkaline Phosphatase 46 IU/L (42-121) 10/07/17 05:27 Lactate Dehydrogenase 125 IU/L (91-225) 10/07/17 05:27 Total Protein 6.2 g/dL (6.7-8.2) L 10/07/17 05:27 Albumin 3.2 g/dL (3.2-5.5) 10/07/17 05:27 Globulin 3.0 g/dL (2.1-4.2) 10/07/17 05:27 Albumin/Globulin Ratio 1.1 (1.0-2.2) 10/07/17 05:27 Lipase 20 U/L (22-51) L 10/05/17 18:22 Vitamin B12 375 pg/mL (180-914) 10/07/17 05:27 ABX Reporting Has patient been on IV antibiotics over the past 48 hours?: No
--- NOTE | 2017-10-08 17:22 | PROVIDER PROGRESS NOTE ---
Assessment/Plan - Problem List (1) Heartburn Assessment/Plan: I discussed that taking 12 Omeprazole daily is not a good favio. Will try Carafate. (2) Small bowel obstruction Assessment/Plan: Resolved and now having alot of BMs. Pt will not agree to a colonoscopy, per the Surgeons note. Will change to po diet and resume po meds. (3) Hypertension Qualifiers: Hypertension type: essential hypertension Qualified Code(s): I10 - Essential (primary) hypertension Assessment/Plan: Will resume po meds and stop iv BP meds. (4) Acute on chronic renal failure Assessment/Plan: Abnormal but stable, only minimally better. Avoid nephrotoxins. Monitor BMP daily. (5) Morbid obesity Assessment/Plan: Chronic and stable (6) Chronic diastolic heart failure Assessment/Plan: Stable (7) Anemia Qualifiers: Anemia type: iron deficiency Assessment/Plan: Will start Iron replacement orally. (8) MAR (obstructive sleep apnea) Assessment/Plan: Chronic and stable. (9) Diabetes type 2, controlled Qualifiers: Diabetes mellitus intermediate insulin use: without shaft mechanic use Diabetes mellitus complication status: without complication Qualified Code(s): E11.9 - Type 2 diabetes mellitus without complications Assessment/Plan: Chronic and stable. (10) Lymphedema Assessment/Plan: Chronic and stable (11) Peripheral neuropathy due to ischemia Assessment/Plan: Chronic and stable - Current Meds Current Meds: Current Medications Generic Name Dose Route Start Last Admin Trade Name Freq PRN Reason Stop Dose Admin Acetaminophen/Codeine Phosphate 2 tab 10/08/17 10:16 10/08/17 11:59 Tylenol #3 PO 2 tab Q4HR PRN Administration PAIN Enoxaparin Sodium 40 mg 10/06/17 09:00 10/08/17 08:48 Lovenox SUBQ 40 mg DAILY MARIVEL Administration Insulin Aspart 1 - 5 unit 10/08/17 08:00 10/08/17 17:02 Novolog SUBQ Not Given 0800,1200,1700,2100 MARIVEL Protocol Lorazepam 0.5 mg 10/05/17 23:55 10/07/17 00:46 Ativan Inj (Vial) IVP 0.5 mg QPM PRN Administration Insomnia Morphine Sulfate 2 mg 10/05/17 21:00 10/08/17 08:47 Morphine IVP 2 mg Q2H PRN Administration Pain 8 to 10 Ondansetron HCl 4 mg 10/05/17 21:00 10/07/17 15:52 Zofran Inj IVP 4 mg Q6HR PRN Administration Nausea / Vomiting Polyethylene Glycol 17 gm 10/06/17 09:00 10/08/17 07:40 Miralax PO Not Given DAILY MARIVEL Prochlorperazine Edisylate 10 mg 10/05/17 21:00 10/07/17 14:11 Compazine Inj IVP 10 mg Q6HR PRN Administration Nausea / Vomiting Sodium Chloride 10 ml 10/05/17 21:00 10/08/17 06:55 Normal Saline Flush 0.9% IVP 20 ml PRN PRN Administration NEEDED PER PROVIDER ORDERS Sodium Chloride 10 ml 10/06/17 01:00 10/08/17 09:15 Normal Saline Flush 0.9% IVP Not Given 0100,0900,1700 MARIVEL Sucralfate 1 gm 10/08/17 12:00 10/08/17 15:49 Carafate PO 1 gm 0700,1100,1600,2200 MARIVEL Administration Zolpidem Tartrate 5 mg 10/05/17 21:00 10/07/17 22:08 Ambien PO 5 mg QPM PRN Administration Insomnia - Lab Result Fish Bone Diagrams: 10/08/17 05:40 10/08/17 05:40 - Additional Planning My Orders: My Active Orders 10/08/17 10:14 Calcium Carbonate [Tums] 500 mg PO Q4H PRN Docusate Sodium 250Mg Capsule [Colace 250Mg Capsule] 250 mg PO BID PRN traMADol [Ultram] 50 mg PO QPM PRN 10/08/17 10:16 Acetaminophen/Cod 300/30 [Tylenol #3] 2 tab PO Q4HR PRN 10/08/17 10:45 Zolpidem [Ambien] 10 mg PO QPM PRN 10/08/17 12:00 Sucralfate [Carafate] 1 gm PO 0700,1100,1600,2200 10/08/17 21:00 Gabapentin [Neurontin] 900 mg PO QPM Losartan [Cozaar] 50 mg PO BID 10/09/17 05:00 BMP - BASIC METABOLIC PANEL [CHEM] DAILYLAB 10/09/17 09:00 Cholecalciferol [Vitamin D3] 5,000 unit PO DAILY 10/10/17 05:00 BMP - BASIC METABOLIC PANEL [CHEM] DAILYLAB Subjective - Subjective Patient Reports: Feeling Better Nursing Reports: Other (Having many BMs now. Pt admits he has alot of "heartburn / indigestion" for which he takes as many as 12 OTC omeprazole daily.) Objective Vital Signs: Vital Signs - 24 hr 10/07/17 10/07/17 10/08/17 18:30 23:35 07:32 Temperature 36.7 C 36.9 C Heart Rate [ 62 78 Brachial] Respiratory 16 20 Rate Blood Pressure 117/58 L [Left Radial artery] Blood Pressure [Right Brachial artery] Blood Pressure 152/67 H 123/52 L [Right Radial artery] O2 Saturation 98 97 10/08/17 10/08/17 14:03 15:51 Temperature 36.5 C Heart Rate [ 79 85 Brachial] Respiratory 20 Rate Blood Pressure [Left Radial artery] Blood Pressure 141/55 H [Right Brachial artery] Blood Pressure [Right Radial artery] O2 Saturation 94 93 Oxygen O2 Source Nasal cannula I&O (Last 24 Hrs): Intake and Output Totals x24h 10/06/17 10/07/17 10/08/17 23:59 23:59 23:59 Intake Total 3300 4300.000 2740 Output Total 1 Balance 3300 4300.000 2739 General: Alert, Oriented x3 HEENT: Mucous membr. moist/pink Neck: Supple, No JVD Neuro: Non Focal Cardiovascular: Regular rate, No murmurs Respiratory: No respiratory distress Abdomen: Other (Obese with pannus, normal BS, non-tender) Extremities: No edema - Results Results: Laboratory Results WBC 7.9 x10^3/uL (4.8-10.8) 10/08/17 05:40 RBC 4.08 10^6/uL (4.70-6.10) L 10/08/17 05:40 Hgb 8.4 g/dL (14.0-18.0) L 10/08/17 05:40 Hct 28.4 % (42.0-52.0) L 10/08/17 05:40 MCV 69.6 fL (80.0-94.0) L 10/08/17 05:40 MCH 20.5 pg (27.0-31.0) L 10/08/17 05:40 MCHC 29.5 g/dL (32.0-36.0) L 10/08/17 05:40 RDW 19.3 % (12.0-15.0) H 10/08/17 05:40 Plt Count 330 10^3/uL (130-450) 10/08/17 05:40 MPV 7.7 fL (7.4-11.4) 10/08/17 05:40 Reticulocyte % (Auto) 1.18 % (0.5-2.3) 10/07/17 05:27 Neut # (Auto) 6.1 10^3/uL (1.5-6.6) 10/08/17 05:40 Lymph # (Auto) 0.9 10^3/uL (1.5-3.5) L 10/08/17 05:40 [place] # (Auto) 0.8 10^3/uL (0.0-1.0) 10/08/17 05:40 Eos # (Auto) 0.1 10^3/uL (0.0-0.7) 10/08/17 05:40 Baso # (Auto) 0.0 10^3/uL (0.0-0.1) 10/08/17 05:40 Absolute Nucleated RBC 0.00 x10^3/uL 10/08/17 05:40 Nucleated RBC % 0.0 /100WBC 10/08/17 05:40 Manual Slide Review Indicated 10/06/17 05:36 Platelet Estimate NORMAL (130-450,000) (NORMAL) 10/06/17 05:36 Platelet Morphology 1+ LARGE PLATELETS (NORMAL) 10/06/17 05:36 RBC Morph Micro Appear 2+ ANISOCYTOSIS (NORMAL) 3+ HYPOCHROMASIA (NORMAL) 2 + MICROCYTOSIS (NORMAL) 2+ POIKILOCYTOSIS (NORMAL) 10/05/17 18:22 RBC Morph Micro Appear 2+ ANISOCYTOSIS (NORMAL) 3+ HYPOCHROMASIA (NORMAL) 2 + MICROCYTOSIS (NORMAL) 2+ POIKILOCYTOSIS (NORMAL) 10/05/17 18:22 RBC Morph Micro Appear 2+ ANISOCYTOSIS (NORMAL) 3+ HYPOCHROMASIA (NORMAL) 2 + MICROCYTOSIS (NORMAL) 2+ POIKILOCYTOSIS (NORMAL) 10/05/17 18:22 RBC Morph Micro Appear 3+ HYPOCHROMASIA (NORMAL) 2+ MICROCYTOSIS (NORMAL) 1+ POLYCHROMASIA (NORMAL) 1+ ANISOCYTOSIS (NORMAL) 10/06/17 05:36 RBC Morph Micro Appear 3+ HYPOCHROMASIA (NORMAL) 2+ MICROCYTOSIS (NORMAL) 1+ POLYCHROMASIA (NORMAL) 1+ ANISOCYTOSIS (NORMAL) 10/06/17 05:36 RBC Morph Micro Appear 3+ HYPOCHROMASIA (NORMAL) 2+ MICROCYTOSIS (NORMAL) 1+ POLYCHROMASIA (NORMAL) 1+ ANISOCYTOSIS (NORMAL) 10/06/17 05:36 RBC Morph Micro Appear 3+ HYPOCHROMASIA (NORMAL) 2+ MICROCYTOSIS (NORMAL) 1+ POLYCHROMASIA (NORMAL) 1+ ANISOCYTOSIS (NORMAL) 10/06/17 05:36 Absolute Retic 0.049 10^6/uL (0.020-0.110) 10/07/17 05:27 VBG pH 7.480 (7.31-7.41) H 10/05/17 18:22 VBG pCO2 54.5 mmHg (41-51) H 10/05/17 18:22 VBG pO2 41.9 mmHg (25-47) 10/05/17 18:22 VBG HCO3 39.7 mmol/L (23-28) H 10/05/17 18:22 VBG Total CO2 41.3 mmol/L (24-29) H 10/05/17 18:22 VBG O2 Saturation 78.9 % (60-80) 10/05/17 18:22 VBG Base Excess 14.3 mmol/L (-2 - +2) H 10/05/17 18:22 Ionized Calcium 1.21 mmol/L (1.15-1.33) 10/05/17 18:22 Sodium 138 mmol/L (135-145) 10/08/17 05:40 Potassium 3.3 mmol/L (3.5-5.0) L 10/08/17 05:40 Chloride 100 mmol/L (101-111) L 10/08/17 05:40 Carbon Dioxide 31 mmol/L (21-32) 10/08/17 05:40 Anion Gap 7.0 (6-13) 10/08/17 05:40 BUN 46 mg/dL (6-20) H 10/08/17 05:40 Creatinine 2.1 mg/dL (0.6-1.2) H 10/08/17 05:40 Estimated GFR (MDRD) 31 (>89) L 10/08/17 05:40 Glucose 97 mg/dL (70-100) 10/08/17 05:40 POC Whole Bld Glucose 89 mg/dL (70 - 100) 10/08/17 11:20 Glycated Hemoglobin 5.6 % (4.6-6.2) 10/07/17 23:50 Estim Average Glucose 114 (70-100) H 10/07/17 23:50 Lactic Acid 1.4 mmol/L (0.5-2.2) 10/05/17 18:22 Calcium 7.9 mg/dL (8.5-10.3) L 10/08/17 05:40 Iron 24 ug/dL (45-182) L 10/07/17 05:27 TIBC 350 ug/dL (250-450) 10/07/17 05:27 % Saturation 7 % (20-50) L 10/07/17 05:27 Transferrin 250 mg/dL (180-329) 10/07/17 05:27 Ferritin 10.9 ng/mL (23.9-336.2) L 10/07/17 05:27 Total Bilirubin 0.8 mg/dL (0.2-1.0) 10/07/17 05:27 AST 21 IU/L (10-42) 10/07/17 05:27 ALT 18 IU/L (10-60) 10/07/17 05:27 Alkaline Phosphatase 46 IU/L (42-121) 10/07/17 05:27 Lactate Dehydrogenase 125 IU/L (91-225) 10/07/17 05:27 Total Protein 6.2 g/dL (6.7-8.2) L 10/07/17 05:27 Albumin 3.2 g/dL (3.2-5.5) 10/07/17 05:27 Globulin 3.0 g/dL (2.1-4.2) 10/07/17 05:27 Albumin/Globulin Ratio 1.1 (1.0-2.2) 10/07/17 05:27 Lipase 20 U/L (22-51) L 07/15/18 18:22 Vitamin B12 375 pg/mL (180-914) 10/07/17 05:27
[2017-10-08] MEDS ORDERED: POTASSIUM CHLOR 10 MEQ/100 ML 10 MEQ/100 ML BAG IV ONE ×2 (19:16→20:30)
[2017-10-08] MEDS: GABAPENTIN 300 MG CAPSULE PO SCH (20:39)
[2017-10-08] MEDS: FERROUS GLUCONATE 324 MG TABLET PO SCH (20:39)
[2017-10-08] MEDS ORDERED: LOSARTAN 50 MG TABLET PO SCH (21:00)
[2017-10-09] MEDS: SODIUM CHLORIDE FLUSH 0.9% 10 ML SYRINGE IVP SCH ×3 (00:09→16:21)
[2017-10-09] MEDS: ONDANSETRON 4 MG/2 ML VIAL IVP PRN ×3 (00:22→20:33)
[2017-10-09] MEDS: SODIUM CHLORIDE FLUSH 0.9% 10 ML SYRINGE IVP PRN ×3 (00:22→20:33)
[2017-10-09] MEDS: SODIUM CHLORIDE 0.9% 1,000 ML IV SCH ×2 (01:40→06:32)
[2017-10-09] MEDS: SUCRALFATE 1 GM/10 ML UDC PO SCH ×2 (06:32→11:10)
[2017-10-09 06:37] LABS: CALCIUM 7.2 mg/dL (8.5-10.3); CREATININE 1.6 mg/dL (0.6-1.2)
[2017-10-09 06:41] LABS: BASOPHILS % (AUTO) 0.2 %; EOSINOPHILS # (AUTO) 0.1 10^3/uL (0.0-0.7); EOSINOPHILS % (AUTO) 1.4 %; HGB - HEMOGLOBIN 7.8 g/dL (14.0-18.0); LYMPHOCYTES % (AUTO) 14.8 %; MEAN CORPUSCULAR HEMOGLOBIN 20.5 pg (27.0-31.0); MEAN CORPUSCULAR HGB CONC 29.2 g/dL (32.0-36.0); MEAN CORPUSCULAR VOLUME 70.1 fL (80.0-94.0); MEAN PLATELET VOLUME 7.6 fL (7.4-11.4); MONOCYTES # (AUTO) 0.7 10^3/uL (0.0-1.0); MONOCYTES % (AUTO) 10.4 %; NEUTROPHILS # (AUTO) 5.1 10^3/uL (1.5-6.6); NEUTROPHILS % (AUTO) 73.2 %; PLT - PLATELET COUNT 294 10^3/uL (130-450); RED CELL DISTRIBUTION WIDTH 19.1 % (12.0-15.0)
[2017-10-09 07:09] LABS: PLATELET ESTIMATE, MANUAL NORMAL (130-450,000) (NORMAL)
[2017-10-09] MEDS: ACETAMINOPHEN/CODEINE 300 MG/30 MG TABLET PO PRN ×3 (07:35→19:38)
[2017-10-09] MEDS: INSULIN ASPART 300 UNIT/3 ML PEN SUBQ SCH ×4 (08:15→20:32)
[2017-10-09] MEDS: FERROUS GLUCONATE 324 MG TABLET PO SCH ×2 (08:21→20:25)
[2017-10-09] MEDS: CHOLECALCIFEROL 5,000 UNIT CAPSULE PO SCH (08:21)
[2017-10-09] MEDS: ENOXAPARIN 40 MG/0.4 ML SYRINGE SUBQ SCH (08:22)
[2017-10-09] MEDS: POLYETHYLENE GLYCOL 3350 17 GM PACKET PO SCH (08:24)
[2017-10-09] MEDS ORDERED: D5NS W/20 MEQ KCL 1,000 ML IV STA (11:31)
[2017-10-09] MEDS ORDERED: DIPHENOX/ATROPINE 2.5/0.025 MG TABLET PO PRN (15:21)
[2017-10-09] MEDS: MORPHINE 2 MG/ML SYRINGE IVP PRN ×2 (15:23→17:51)
--- NOTE | 2017-10-09 16:55 | PROVIDER PROGRESS NOTE ---
Assessment/Plan - Problem List (1) Heartburn Assessment/Plan: No better with Carafate Will try TUMS scheduled (2) Small bowel obstruction Assessment/Plan: Diarrhea continues. Will check for C. diff and culture stool, if benign will add Lomotil prn (3) Hypertension Qualifiers: Hypertension type: essential hypertension Qualified Code(s): I10 - Essential (primary) hypertension Assessment/Plan: Stable (4) Acute on chronic renal failure Assessment/Plan: Creat improved from 2.1 to 1.6 with hydration since yesterday when he was dizzy and probably dehydrated from diarrhea. Monitor BMP daily. (5) Morbid obesity Assessment/Plan: Abn but stable (6) Chronic diastolic heart failure Assessment/Plan: Stable symptoms (7) Anemia Qualifiers: Anemia type: iron deficiency Assessment/Plan: Iron replacement started He may need transfusion if Hgb <7 tomorrow. Monitor CBC daily (8) MAR (obstructive sleep apnea) Assessment/Plan: Unchanged (9) Diabetes type 2, controlled Qualifiers: Diabetes mellitus senior care insulin use: without senior care use Diabetes mellitus complication status: without complication Qualified Code(s): E11.9 - Type 2 diabetes mellitus without complications Assessment/Plan: On diet and ss Insulin coverage (10) Lymphedema Assessment/Plan: Pt asked for a Alejandra due to "difficulty urinating and controlling stream" due to pressure from lymphedema, this is not new. I recommend an incontinence pad and will consider Lidocaine jelly topically on urethra. 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 - Current Meds Current Meds: Current Medications Generic Name Dose Route Start Last Admin Trade Name Freq PRN Reason Stop Dose Admin Acetaminophen/Codeine Phosphate 2 tab 10/08/17 10:16 10/09/17 13:52 Tylenol #3 PO 2 tab Q4HR PRN Administration PAIN Cholecalciferol 5,000 unit 10/09/17 09:00 10/09/17 08:21 Vitamin D3 PO 5,000 unit DAILY MARIVEL Administration Enoxaparin Sodium 40 mg 10/06/17 09:00 10/09/17 08:22 Lovenox SUBQ 40 mg DAILY MARIVEL Administration Ferrous Gluconate 324 mg 10/08/17 21:00 10/09/17 08:21 Fergon PO 324 mg BID MARIVEL Administration Gabapentin 900 mg 10/08/17 21:00 10/08/17 20:39 Neurontin PO 900 mg QPM MARIVEL Administration Potassium Chloride/Dextrose/Sod Cl 1,000 mls @ 83.333 mls/hr 10/09/17 11:31 10/09/17 11:41 IV 10/09/17 23:30 83.333 mls/hr .Q12H STA Administration Insulin Aspart 1 - 5 unit 10/08/17 08:00 10/09/17 16:40 Novolog SUBQ Not Given 0800,1200,1700,2100 [facility] Protocol Lorazepam 0.5 mg 10/05/17 23:55 10/07/17 00:46 Ativan Inj (Vial) IVP 0.5 mg QPM PRN Administration Insomnia Morphine Sulfate 2 mg 10/05/17 21:00 10/09/17 15:23 Morphine IVP 2 mg Q2H PRN Administration Pain 8 to 10 Ondansetron HCl 4 mg 10/05/17 21:00 10/09/17 11:05 Zofran Inj IVP 4 mg Q6HR PRN Administration Nausea / Vomiting Polyethylene Glycol 17 gm 10/06/17 09:00 10/09/17 08:24 Miralax PO Not Given DAILY MARIVEL Prochlorperazine Edisylate 10 mg 10/05/17 21:00 10/07/17 14:11 Compazine Inj IVP 10 mg Q6HR PRN Administration Nausea / Vomiting Sodium Chloride 10 ml 10/05/17 21:00 10/09/17 00:22 Normal Saline Flush 0.9% IVP 10 ml PRN PRN Administration NEEDED PER PROVIDER ORDERS Sodium Chloride 10 ml 10/06/17 01:00 10/09/17 16:21 Normal Saline Flush 0.9% IVP Not Given 0100,0900,1700 MARIVEL Zolpidem Tartrate 5 mg 10/05/17 21:00 10/07/17 22:08 Ambien PO 5 mg QPM PRN Administration Insomnia - Lab Result Fish Bone Diagrams: 10/09/17 06:20 10/09/17 06:20 - Additional Planning My Orders: My Active Orders 10/08/17 21:00 Ferrous Gluconate [Fergon] 324 mg PO BID Gabapentin [Neurontin] 900 mg PO QPM 10/09/17 09:00 Cholecalciferol [Vitamin D3] 5,000 unit PO DAILY 10/09/17 11:31 D5ns W/20 Meq KCl 1,000 ml IV 83.333 mls/hr 10/09/17 13:45 CUL, STOOL [CULTURE, STOOL] [RM] Urgent 10/09/17 15:21 Diphenoxylate/Atropine [Lomotil] 1 tab PO QID PRN 10/10/17 05:00 BMP - BASIC METABOLIC PANEL [CHEM] DAILYLAB CBC - COMP BLD CT W/AUTO DIFF [HEME] DAILYLAB 10/11/17 05:00 CBC - COMP BLD CT W/AUTO DIFF [HEME] DAILYLAB Subjective - Subjective Patient Reports: Abdominal Pain, Nausea, Other (Dysuria) Nursing Reports: Other (Liquid stool continues but snmaller volume) Objective Vital Signs: Vital Signs - 24 hr 10/08/17 10/09/17 10/09/17 23:28 08:00 16:29 Temperature 36.9 C 36.9 C 37.0 C Heart Rate [ 100 85 83 Brachial] Respiratory 22 16 20 Rate Blood Pressure 159/61 H 149/62 H [Left Radial artery] Blood Pressure 144/58 H [Right Brachial artery] O2 Saturation 94 100 97 Oxygen O2 Source Nasal cannula I&O (Last 24 Hrs): Intake and Output Totals x24h 10/07/17 10/08/17 10/09/17 23:59 23:59 23:59 Intake Total 4300.000 3420 3963.333 Output Total 1 Balance 4300.000 3419 3963.333 General: Alert, Oriented x3, Other (Fatigued and pale) HEENT: Mucous membr. moist/pink Neck: Supple Neuro: Non Focal Cardiovascular: No murmurs Respiratory: No respiratory distress, Breath sounds nml Abdomen: Other (Obese with pannus, non-tender) Extremities: No edema - Results Results: Laboratory Results WBC 7.0 x10^3/uL (4.8-10.8) 10/09/17 06:20 RBC 3.80 10^6/uL (4.70-6.10) L 10/09/17 06:20 Hgb 7.8 g/dL (14.0-18.0) L 10/09/17 06:20 Hct 26.7 % (42.0-52.0) L 10/09/17 06:20 MCV 70.1 fL (80.0-94.0) L 10/09/17 06:20 MCH 20.5 pg (27.0-31.0) L 10/09/17 06:20 MCHC 29.2 g/dL (32.0-36.0) L 10/09/17 06:20 RDW 19.1 % (12.0-15.0) H 10/09/17 06:20 Plt Count 294 10^3/uL (130-450) 10/09/17 06:20 MPV 7.6 fL (7.4-11.4) 10/09/17 06:20 Reticulocyte % (Auto) 1.18 % (0.5-2.3) 10/07/17 05:27 Neut # (Auto) 5.1 10^3/uL (1.5-6.6) 10/09/17 06:20 Lymph # (Auto) 1.0 10^3/uL (1.5-3.5) L 10/09/17 06:20 [place] # (Auto) 0.7 10^3/uL (0.0-1.0) 10/09/17 06:20 Eos # (Auto) 0.1 10^3/uL (0.0-0.7) 10/09/17 06:20 Baso # (Auto) 0.0 10^3/uL (0.0-0.1) 10/09/17 06:20 Absolute Nucleated RBC 0.00 x10^3/uL 10/09/17 06:20 Nucleated RBC % 0.0 /100WBC 10/09/17 06:20 Manual Slide Review Indicated 10/09/17 06:20 Platelet Estimate NORMAL (130-450,000) (NORMAL) 10/09/17 06:20 Platelet Morphology 1+ LARGE PLATELETS (NORMAL) 10/06/17 05:36 RBC Morph Micro Appear 2+ ANISOCYTOSIS (NORMAL) 3+ HYPOCHROMASIA (NORMAL) 2 + MICROCYTOSIS (NORMAL) 2+ POIKILOCYTOSIS (NORMAL) 10/05/17 18:22 RBC Morph Micro Appear 2+ ANISOCYTOSIS (NORMAL) 3+ HYPOCHROMASIA (NORMAL) 2 + MICROCYTOSIS (NORMAL) 2+ POIKILOCYTOSIS (NORMAL) 10/05/17 18:22 RBC Morph Micro Appear 3+ HYPOCHROMASIA (NORMAL) 2+ MICROCYTOSIS (NORMAL) 1+ POLYCHROMASIA (NORMAL) 1+ ANISOCYTOSIS (NORMAL) 10/06/17 05:36 RBC Morph Micro Appear 3+ HYPOCHROMASIA (NORMAL) 2+ MICROCYTOSIS (NORMAL) 1+ POLYCHROMASIA (NORMAL) 1+ ANISOCYTOSIS (NORMAL) 10/06/17 05:36 RBC Morph Micro Appear 3+ HYPOCHROMASIA (NORMAL) 2+ MICROCYTOSIS (NORMAL) 1+ POLYCHROMASIA (NORMAL) 1+ ANISOCYTOSIS (NORMAL) 10/06/17 05:36 RBC Morph Micro Appear 3+ HYPOCHROMASIA (NORMAL) 2+ MICROCYTOSIS (NORMAL) 1+ POLYCHROMASIA (NORMAL) 1+ ANISOCYTOSIS (NORMAL) 10/06/17 05:36 RBC Morph Micro Appear 1+ ANISOCYTOSIS (NORMAL) 2+ HYPOCHROMASIA (NORMAL) 1+ OVALOCYTES (NORMAL) 10/09/17 06:20 RBC Morph Micro Appear 1+ ANISOCYTOSIS (NORMAL) 2+ HYPOCHROMASIA (NORMAL) 1+ OVALOCYTES (NORMAL) 10/09/17 06:20 RBC Morph Micro Appear 1+ ANISOCYTOSIS (NORMAL) 2+ HYPOCHROMASIA (NORMAL) 1+ OVALOCYTES (NORMAL) 10/09/17 06:20 Absolute Retic 0.049 10^6/uL (0.020-0.110) 10/07/17 05:27 VBG pH 7.480 (7.31-7.41) H 10/05/17 18:22 VBG pCO2 54.5 mmHg (41-51) H 10/05/17 18:22 VBG pO2 41.9 mmHg (25-47) 10/05/17 18:22 VBG HCO3 39.7 mmol/L (23-28) H 10/05/17 18:22 VBG Total CO2 41.3 mmol/L (24-29) H 10/05/17 18:22 VBG O2 Saturation 78.9 % (60-80) 10/05/17 18:22 VBG Base Excess 14.3 mmol/L (-2 - +2) H 10/05/17 18:22 Ionized Calcium 1.21 mmol/L (1.15-1.33) 10/05/17 18:22 Sodium 141 mmol/L (135-145) 10/09/17 06:20 Potassium 3.6 mmol/L (3.5-5.0) 10/09/17 06:20 Chloride 104 mmol/L (101-111) 10/09/17 06:20 Carbon Dioxide 30 mmol/L (21-32) 10/09/17 06:20 Anion Gap 7.0 (6-13) 10/09/17 06:20 BUN 39 mg/dL (6-20) H 10/09/17 06:20 Creatinine 1.6 mg/dL (0.6-1.2) H 10/09/17 06:20 Estimated GFR (MDRD) 43 (>89) L 10/09/17 06:20 Glucose 88 mg/dL (70-100) 10/09/17 06:20 POC Whole Bld Glucose 87 mg/dL (70 - 100) 10/09/17 11:20 Glycated Hemoglobin 5.6 % (4.6-6.2) 10/07/17 23:50 Estim Average Glucose 114 (70-100) H 10/07/17 23:50 Lactic Acid 1.4 mmol/L (0.5-2.2) 10/05/17 18:22 Calcium 7.2 mg/dL (8.5-10.3) L 10/09/17 06:20 Iron 24 ug/dL (45-182) L 10/07/17 05:27 TIBC 350 ug/dL (250-450) 10/07/17 05:27 % Saturation 7 % (20-50) L 10/07/17 05:27 Transferrin 250 mg/dL (180-329) 10/07/17 05:27 Ferritin 10.9 ng/mL (23.9-336.2) L 10/07/17 05:27 Total Bilirubin 0.8 mg/dL (0.2-1.0) 10/07/17 05:27 AST 21 IU/L (10-42) 10/07/17 05:27 ALT 18 IU/L (10-60) 10/07/17 05:27 Alkaline Phosphatase 46 IU/L (42-121) 10/07/17 05:27 Lactate Dehydrogenase 125 IU/L (91-225) 10/07/17 05:27 Total Protein 6.2 g/dL (6.7-8.2) L 10/07/17 05:27 Albumin 3.2 g/dL (3.2-5.5) 10/07/17 05:27 Globulin 3.0 g/dL (2.1-4.2) 10/07/17 05:27 Albumin/Globulin Ratio 1.1 (1.0-2.2) 10/07/17 05:27 Lipase 20 U/L (22-51) L 10/05/17 18:22 Vitamin B12 375 pg/mL (180-914) 10/07/17 05:27 ABX Reporting Has patient been on IV antibiotics over the past 48 hours?: No
[2017-10-09] MEDS ORDERED: LIDOCAINE OINTMENT 5% 35.44 GM TUBE TOP PRN (17:04)
[2017-10-09] MEDS: CALCIUM CARBONATE CHEW 500 MG TABLET PO SCH ×2 (17:51→21:30)
[2017-10-09] MEDS ORDERED: CALCIUM CARBONATE CHEW 500 MG TABLET PO PRN (19:12)
[2017-10-09] MEDS: GABAPENTIN 300 MG CAPSULE PO SCH (20:25)
[2017-10-09] MEDS ORDERED: ZINC OXIDE 20% OINT 28.35 GM TUBE TOP PRN (20:51)
[2017-10-09] MEDS ORDERED: SODIUM CHLORIDE FLUSH 0.9% 10 ML SYRINGE ONE (21:21)
[2017-10-09] MEDS: ZOLPIDEM 5 MG TABLET PO PRN (21:30)
[2017-10-10] MEDS: SODIUM CHLORIDE FLUSH 0.9% 10 ML SYRINGE IVP SCH ×4 (00:02→23:40)
[2017-10-10] MEDS: ACETAMINOPHEN/CODEINE 300 MG/30 MG TABLET PO PRN ×2 (03:39→20:42)
[2017-10-10] MEDS: MORPHINE 2 MG/ML SYRINGE IVP PRN ×2 (04:59→23:40)
[2017-10-10] MEDS: SODIUM CHLORIDE FLUSH 0.9% 10 ML SYRINGE IVP PRN ×2 (04:59→23:54)
[2017-10-10 05:41] LABS: BASOPHILS % (AUTO) 0.5 %; EOSINOPHILS # (AUTO) 0.2 10^3/uL (0.0-0.7); EOSINOPHILS % (AUTO) 1.9 %; HGB - HEMOGLOBIN 8.4 g/dL (14.0-18.0); LYMPHOCYTES # (AUTO) 1.2 10^3/uL (1.5-3.5); LYMPHOCYTES % (AUTO) 15.5 %; MEAN CORPUSCULAR HEMOGLOBIN 20.1 pg (27.0-31.0); MEAN CORPUSCULAR HGB CONC 29.4 g/dL (32.0-36.0); MEAN PLATELET VOLUME 7.4 fL (7.4-11.4); MONOCYTES # (AUTO) 0.9 10^3/uL (0.0-1.0); MONOCYTES % (AUTO) 11.5 %; NEUTROPHILS # (AUTO) 5.7 10^3/uL (1.5-6.6); NEUTROPHILS % (AUTO) 70.6 %; PLT - PLATELET COUNT 319 10^3/uL (130-450); RED BLOOD COUNT 4.16 10^6/uL (4.70-6.10); WHITE BLOOD COUNT 8.1 x10^3/uL (4.8-10.8)
[2017-10-10 05:47] LABS: MEAN CORPUSCULAR VOLUME 68.5 fL (80.0-94.0)
[2017-10-10 05:48] LABS: CREATININE 1.4 mg/dL (0.6-1.2)
[2017-10-10] MEDS: ONDANSETRON 4 MG/2 ML VIAL IVP PRN (08:08)
[2017-10-10] MEDS: POLYETHYLENE GLYCOL 3350 17 GM PACKET PO SCH (08:10)
[2017-10-10] MEDS: INSULIN ASPART 300 UNIT/3 ML PEN SUBQ SCH ×4 (08:10→20:43)
[2017-10-10] MEDS: CALCIUM CARBONATE CHEW 500 MG TABLET PO SCH ×4 (09:47→20:45)
[2017-10-10] MEDS: ENOXAPARIN 40 MG/0.4 ML SYRINGE SUBQ SCH (09:47)
[2017-10-10] MEDS: CHOLECALCIFEROL 5,000 UNIT CAPSULE PO SCH (09:47)
[2017-10-10] MEDS: FERROUS GLUCONATE 324 MG TABLET PO SCH ×2 (09:47→20:42)
[2017-10-10] MEDS: PROCHLORPERAZINE 10 MG/2 ML VIAL IVP PRN (10:01)
[2017-10-10] MEDS ORDERED: ACETAMINOPHEN 325 MG TABLET PO SCH (13:50)
[2017-10-10] MEDS ORDERED: diphenhydrAMINE INJ 50 MG/ML VIAL IVP SCH (15:30)
[2017-10-10] MEDS ORDERED: SODIUM CHLORIDE FLUSH 0.9% 10 ML SYRINGE ONE (16:39)
--- NOTE | 2017-10-10 16:47 | PROVIDER PROGRESS NOTE ---
Assessment/Plan - Problem List (1) Anemia Qualifiers: Anemia type: iron deficiency Assessment/Plan: The patient is very pale and reports severe weakness, worse over the past 2 days , despite better state of hydration, diet and less diarrhea. Will perform a postural VS check and if he is orthostatic, will recommend a blood transfusion, the risks and benefits were discussed with patient, present. (2) Small bowel obstruction Assessment/Plan: Resolved, had copious wet diarrhea for 2 days, slowing down. Pt taking a solid, low fat and low fiber diet. (3) Hypertension Qualifiers: Hypertension type: essential hypertension Qualified Code(s): I10 - Essential (primary) hypertension Assessment/Plan: Controlled on present meds (4) Acute on chronic renal failure Assessment/Plan: Creatinine has nearly normalized t 1.1 after iv hydration for 5 days. Due to hemodilution, he is very anemic however. (5) Chronic diastolic heart failure Assessment/Plan: No evidence of leg edema or pulmonary vascular congestion. Will stop iv fluids now that creat has normalized. (6) Diabetes type 2, controlled Qualifiers: Diabetes mellitus terminologist insulin use: without chcf use Diabetes mellitus complication status: without complication Qualified Code(s): E11.9 - Type 2 diabetes mellitus without complications Assessment/Plan: Continue DM diet, fingerstick glu checks and ss Insulin coverage. (7) Lymphedema Assessment/Plan: Chronic, stable. (8) Peripheral neuropathy due to ischemia Assessment/Plan: No complaints since here. (9) Heartburn Assessment/Plan: Resolved - Current Meds Current Meds: Current Medications Generic Name Dose Route Start Last Admin Trade Name Freq PRN Reason Stop Dose Admin Acetaminophen/Codeine Phosphate 2 tab 10/08/17 10:16 10/10/17 03:39 Tylenol #3 PO 2 tab Q4HR PRN Administration PAIN Calcium Carbonate/Glycine 500 mg 10/09/17 18:00 10/10/17 09:50 Tums PO Not Given BID MARIVEL Cholecalciferol 5,000 unit 10/09/17 09:00 10/10/17 09:47 Vitamin D3 PO 5,000 unit DAILY MARIVEL Administration Diphenoxylate HCl/Atropine 1 tab 10/09/17 15:21 10/10/17 16:07 Lomotil PO 1 tab QID PRN Administration Diarrhea Enoxaparin Sodium 40 mg 10/06/17 09:00 10/10/17 09:47 Lovenox SUBQ 40 mg DAILY MARIVEL Administration Ferrous Gluconate 324 mg 10/08/17 21:00 10/10/17 09:47 Fergon PO 324 mg BID MARIVEL Administration Gabapentin 900 mg 10/08/17 21:00 10/09/17 20:25 Neurontin PO 900 mg QPM MARIVEL Administration Insulin Aspart 1 - 5 unit 10/08/17 08:00 10/10/17 16:44 Novolog SUBQ Not Given 0800,1200,1700,2100 [facility] Protocol Lorazepam 0.5 mg 10/05/17 23:55 10/07/17 00:46 Ativan Inj (Vial) IVP 0.5 mg QPM PRN Administration Insomnia Morphine Sulfate 2 mg 10/05/17 21:00 10/10/17 04:59 Morphine IVP 2 mg Q2H PRN Administration Pain 8 to 10 Multi-Ingredient Ointment 1 applic 10/09/17 20:51 10/09/17 21:01 Zinc Oxide TOP 10/16/17 20:50 1 applic PRN PRN Administration Skin Care Ondansetron HCl 4 mg 10/05/17 21:00 10/10/17 08:08 Zofran Inj IVP 4 mg Q6HR PRN Administration Nausea / Vomiting Polyethylene Glycol 17 gm 10/06/17 09:00 10/10/17 08:10 Miralax PO Not Given DAILY [facility] Prochlorperazine Edisylate 10 mg 10/05/17 21:00 10/10/17 10:01 Compazine Inj IVP 10 mg Q6HR PRN Administration Nausea / Vomiting Sodium Chloride 10 ml 10/05/17 21:00 10/10/17 04:59 Normal Saline Flush 0.9% IVP 10 ml PRN PRN Administration NEEDED PER PROVIDER ORDERS Sodium Chloride 10 ml 10/06/17 01:00 10/10/17 08:08 Normal Saline Flush 0.9% IVP 10 ml 0100,0900,1700 [facility] Administration Zolpidem Tartrate 5 mg 10/05/17 21:00 10/09/17 21:30 Ambien PO 5 mg QPM PRN Administration Insomnia - Lab Result Fish Bone Diagrams: 10/11/17 06:33 10/10/17 05:15 - Additional Planning My Orders: My Active Orders 10/09/17 17:04 Lidocaine Ointment 5% [Xylocaine Ointment 5%] 1 applic TOP QID PRN 10/09/17 18:00 Calcium Carbonate [Tums] 500 mg PO BID 10/09/17 20:51 Zinc Oxide 20% Oint [Zinc Oxide] 1 applic TOP PRN PRN 10/10/17 11:22 Postural [Vital Signs - Orthostatic] [RC] QSHIFT 10/10/17 13:50 Transfuse RBCs Leukoreduced [RC] .ONCE Acetaminophen [Tylenol] 650 mg PO ONCE 10/10/17 14:34 RBC, LEUKOREDUCED Stat TYPE AND SCREEN Stat 10/10/17 15:30 diphenhydrAMINE INJ [Benadryl Inj] 25 mg IVP ONCE 10/11/17 05:00 CBC - COMP BLD CT W/AUTO DIFF [HEME] DAILYLAB Subjective - Subjective Patient Reports: Other (Weak, too tired to stand.) Nursing Reports: Other (Still had a loose BM, is incontinent of urine.) Objective Vital Signs: Vital Signs - 24 hr 10/09/17 10/10/17 10/10/17 22:22 00:00 08:00 Temperature 36.5 C 36.8 C Heart Rate [ 68 77 Brachial] Heart Rate [ Sitting (After 1 Minute)] Heart Rate [ Standing (After 1 Minute)] Heart Rate [ Supine] Respiratory 16 18 22 Rate Blood Pressure 145/65 H 142/69 H [Left Brachial artery] Blood Pressure [Sitting (After 1 Minute)] Blood Pressure [Standing ( After 1 Minute) ] Blood Pressure [Supine] O2 Saturation 96 99 99 10/10/17 10/10/17 11:26 15:24 Temperature 36.5 C Heart Rate [ 88 Brachial] Heart Rate [ 91 Sitting (After 1 Minute)] Heart Rate [ 91 Standing (After 1 Minute)] Heart Rate [ 78 Supine] Respiratory 18 Rate Blood Pressure 148/66 H [Left Brachial artery] Blood Pressure 158/79 H [Sitting (After 1 Minute)] Blood Pressure 140/83 H [Standing ( After 1 Minute) ] Blood Pressure 158/80 H [Supine] O2 Saturation 99 Oxygen O2 Source Nasal cannula I&O (Last 24 Hrs): Intake and Output Totals x24h 10/08/17 10/09/17 10/10/17 23:59 23:59 23:59 Intake Total 3420 4263.333 1740 Output Total 1 150 Balance 3419 4263.333 1590 General: Alert, Oriented x3, Other (Pale) HEENT: Mucous membr. moist/pink Neck: Supple Neuro: Non Focal Cardiovascular: Other (Diastant heart sounds) Respiratory: No respiratory distress, Breath sounds nml Abdomen: Soft, Other (Decreased bowel sounds) Rectal: Other (Cannot visualize penis due to large pannus) Extremities: No edema - Results Results: Laboratory Results WBC 8.1 x10^3/uL (4.8-10.8) 10/10/17 05:15 RBC 4.16 10^6/uL (4.70-6.10) L 10/10/17 05:15 Hgb 8.4 g/dL (14.0-18.0) L 10/10/17 05:15 Hct 28.5 % (42.0-52.0) L 10/10/17 05:15 MCV 68.5 fL (80.0-94.0) L 10/10/17 05:15 MCH 20.1 pg (27.0-31.0) L 10/10/17 05:15 MCHC 29.4 g/dL (32.0-36.0) L 10/10/17 05:15 RDW 20.0 % (12.0-15.0) H 10/10/17 05:15 Plt Count 319 10^3/uL (130-450) 10/10/17 05:15 MPV 7.4 fL (7.4-11.4) 10/10/17 05:15 Reticulocyte % (Auto) 1.18 % (0.5-2.3) 10/07/17 05:27 Neut # (Auto) 5.7 10^3/uL (1.5-6.6) 10/10/17 05:15 Lymph # (Auto) 1.2 10^3/uL (1.5-3.5) L 10/10/17 05:15 [place] # (Auto) 0.9 10^3/uL (0.0-1.0) 10/10/17 05:15 Eos # (Auto) 0.2 10^3/uL (0.0-0.7) 10/10/17 05:15 Baso # (Auto) 0.0 10^3/uL (0.0-0.1) 10/10/17 05:15 Absolute Nucleated RBC 0.00 x10^3/uL 10/10/17 05:15 Nucleated RBC % 0.0 /100WBC 10/10/17 05:15 Manual Slide Review Indicated 10/09/17 06:20 Platelet Estimate NORMAL (130-450,000) (NORMAL) 10/09/17 06:20 Platelet Morphology 1+ LARGE PLATELETS (NORMAL) 10/06/17 05:36 RBC Morph Micro Appear 2+ ANISOCYTOSIS (NORMAL) 3+ HYPOCHROMASIA (NORMAL) 2 + MICROCYTOSIS (NORMAL) 2+ POIKILOCYTOSIS (NORMAL) 10/05/17 18:22 RBC Morph Micro Appear 2+ ANISOCYTOSIS (NORMAL) 3+ HYPOCHROMASIA (NORMAL) 2 + MICROCYTOSIS (NORMAL) 2+ POIKILOCYTOSIS (NORMAL) 10/05/17 18:22 RBC Morph Micro Appear 3+ HYPOCHROMASIA (NORMAL) 2+ MICROCYTOSIS (NORMAL) 1+ POLYCHROMASIA (NORMAL) 1+ ANISOCYTOSIS (NORMAL) 10/06/17 05:36 RBC Morph Micro Appear 3+ HYPOCHROMASIA (NORMAL) 2+ MICROCYTOSIS (NORMAL) 1+ POLYCHROMASIA (NORMAL) 1+ ANISOCYTOSIS (NORMAL) 10/06/17 05:36 RBC Morph Micro Appear 3+ HYPOCHROMASIA (NORMAL) 2+ MICROCYTOSIS (NORMAL) 1+ POLYCHROMASIA (NORMAL) 1+ ANISOCYTOSIS (NORMAL) 10/06/17 05:36 RBC Morph Micro Appear 3+ HYPOCHROMASIA (NORMAL) 2+ MICROCYTOSIS (NORMAL) 1+ POLYCHROMASIA (NORMAL) 1+ ANISOCYTOSIS (NORMAL) 10/06/17 05:36 RBC Morph Micro Appear 1+ ANISOCYTOSIS (NORMAL) 2+ HYPOCHROMASIA (NORMAL) 1+ OVALOCYTES (NORMAL) 10/09/17 06:20 RBC Morph Micro Appear 1+ ANISOCYTOSIS (NORMAL) 2+ HYPOCHROMASIA (NORMAL) 1+ OVALOCYTES (NORMAL) 10/09/17 06:20 RBC Morph Micro Appear 1+ ANISOCYTOSIS (NORMAL) 2+ HYPOCHROMASIA (NORMAL) 1+ OVALOCYTES (NORMAL) 10/09/17 06:20 Absolute Retic 0.049 10^6/uL (0.020-0.110) 10/07/17 05:27 VBG pH 7.480 (7.31-7.41) H 10/05/17 18:22 VBG pCO2 54.5 mmHg (41-51) H 10/05/17 18:22 VBG pO2 41.9 mmHg (25-47) 10/05/17 18:22 VBG HCO3 39.7 mmol/L (23-28) H 10/05/17 18:22 VBG Total CO2 41.3 mmol/L (24-29) H 10/05/17 18:22 VBG O2 Saturation 78.9 % (60-80) 10/05/17 18:22 VBG Base Excess 14.3 mmol/L (-2 - +2) H 10/05/17 18:22 Ionized Calcium 1.21 mmol/L (1.15-1.33) 10/05/17 18:22 Sodium 145 mmol/L (135-145) 10/10/17 05:15 Potassium 3.6 mmol/L (3.5-5.0) 10/10/17 05:15 Chloride 110 mmol/L (101-111) 10/10/17 05:15 Carbon Dioxide 28 mmol/L (21-32) 10/10/17 05:15 Anion Gap 7.0 (6-13) 10/10/17 05:15 BUN 33 mg/dL (6-20) H 10/10/17 05:15 Creatinine 1.4 mg/dL (0.6-1.2) H 10/10/17 05:15 Estimated GFR (MDRD) 50 (>89) L 10/10/17 05:15 Glucose 98 mg/dL (70-100) 10/10/17 05:15 POC Whole Bld Glucose 110 mg/dL (70 - 100) H 10/10/17 16:38 Glycated Hemoglobin 5.6 % (4.6-6.2) 10/07/17 23:50 Estim Average Glucose 114 (70-100) H 10/07/17 23:50 Lactic Acid 1.4 mmol/L (0.5-2.2) 10/05/17 18:22 Calcium 7.0 mg/dL (8.5-10.3) L 10/10/17 05:15 Iron 24 ug/dL (45-182) L 10/07/17 05:27 TIBC 350 ug/dL (250-450) 10/07/17 05:27 % Saturation 7 % (20-50) L 10/07/17 05:27 Transferrin 250 mg/dL (180-329) 10/07/17 05:27 Ferritin 10.9 ng/mL (23.9-336.2) L 10/07/17 05:27 Total Bilirubin 0.8 mg/dL (0.2-1.0) 10/07/17 05:27 AST 21 IU/L (10-42) 10/07/17 05:27 ALT 18 IU/L (10-60) 10/07/17 05:27 Alkaline Phosphatase 46 IU/L (42-121) 10/07/17 05:27 Lactate Dehydrogenase 125 IU/L (91-225) 10/07/17 05:27 Total Protein 6.2 g/dL (6.7-8.2) L 10/07/17 05:27 Albumin 3.2 g/dL (3.2-5.5) 10/07/17 05:27 Globulin 3.0 g/dL (2.1-4.2) 10/07/17 05:27 Albumin/Globulin Ratio 1.1 (1.0-2.2) 10/07/17 05:27 Lipase 20 U/L (22-51) L 10/05/17 18:22 Vitamin B12 375 pg/mL (180-914) 10/07/17 05:27 Blood Type B POSITIVE 10/10/17 14:34 Blood Type Recheck B POSITIVE 10/10/17 15:24 Antibody Screen NEGATIVE 10/10/17 14:34 Crossmatch IS Only See Detail 10/10/17 14:34
[2017-10-10] MEDS: GABAPENTIN 300 MG CAPSULE PO SCH (20:42)
[2017-10-10] MEDS: SIMETHICONE CHEW 80 MG TABLET PO SCH (22:19)
[2017-10-10] MEDS: ZOLPIDEM 5 MG TABLET PO PRN (23:54)
[2017-10-11] MEDS: SODIUM CHLORIDE FLUSH 0.9% 10 ML SYRINGE IVP PRN ×2 (01:15→04:27)
[2017-10-11] MEDS: MORPHINE 2 MG/ML SYRINGE IVP PRN (04:27)
[2017-10-11 06:57] LABS: BASOPHILS # (AUTO) 0.1 10^3/uL (0.0-0.1); BASOPHILS % (AUTO) 0.9 %; EOSINOPHILS # (AUTO) 0.1 10^3/uL (0.0-0.7); EOSINOPHILS % (AUTO) 1.7 %; LYMPHOCYTES # (AUTO) 1.3 10^3/uL (1.5-3.5); LYMPHOCYTES % (AUTO) 17.5 %; MEAN CORPUSCULAR HEMOGLOBIN 21.9 pg (27.0-31.0); MEAN CORPUSCULAR HGB CONC 30.8 g/dL (32.0-36.0); MEAN CORPUSCULAR VOLUME 70.9 fL (80.0-94.0); MEAN PLATELET VOLUME 8.5 fL (7.4-11.4); MONOCYTES # (AUTO) 0.9 10^3/uL (0.0-1.0); MONOCYTES % (AUTO) 11.6 %; NEUTROPHILS # (AUTO) 5.1 10^3/uL (1.5-6.6); NEUTROPHILS % (AUTO) 68.3 %; PLT - PLATELET COUNT 305 10^3/uL (130-450); RED BLOOD COUNT 4.59 10^6/uL (4.70-6.10); RED CELL DISTRIBUTION WIDTH 21.4 % (12.0-15.0); WHITE BLOOD COUNT 7.4 x10^3/uL (4.8-10.8)
[2017-10-11] MEDS: CALCIUM CARBONATE CHEW 500 MG TABLET PO SCH (08:12)
[2017-10-11] MEDS: ENOXAPARIN 40 MG/0.4 ML SYRINGE SUBQ SCH (08:13)
[2017-10-11] MEDS: CHOLECALCIFEROL 5,000 UNIT CAPSULE PO SCH (08:13)
[2017-10-11] MEDS: FERROUS GLUCONATE 324 MG TABLET PO SCH (08:13)
[2017-10-11] MEDS: POLYETHYLENE GLYCOL 3350 17 GM PACKET PO SCH (08:13)
[2017-10-11] MEDS: SIMETHICONE CHEW 80 MG TABLET PO SCH (08:13)
[2017-10-11] MEDS: SODIUM CHLORIDE FLUSH 0.9% 10 ML SYRINGE IVP SCH (08:13)
[2017-10-11] MEDS: INSULIN ASPART 300 UNIT/3 ML PEN SUBQ SCH ×2 (08:14→13:18)
[2017-10-11 10:51] VITALS: BP 145/72
[2017-10-11] MEDS: ACETAMINOPHEN/CODEINE 300 MG/30 MG TABLET PO PRN (10:52)
[2017-10-11] MEDS: ONDANSETRON 4 MG/2 ML VIAL IVP PRN (11:48)
--- NOTE | 2017-10-11 12:25 | Discharge Plan ---
Discharge Plan Disposition: Home, Self Care Condition: Stable Prescriptions: Diaper,Brief,Adult, Disposable [Brief] 1 each MC TID PRN #24 each PRN Reason: Per Physician Order Diphenoxylate/Atropine [Lomotil] 1 tab PO QID PRN #20 tablet PRN Reason: Diarrhea Ferrous Gluconate 324 mg PO BID #60 tablet Hydrocodone/Acetaminophen [Vicodin 5-300 mg Tablet] 1 each PO BID PRN #10 tablet PRN Reason: Severe Pain Lidocaine Ointment 5% [Xylocaine Ointment 5%] 1 applic TOP QID PRN #1 tube PRN Reason: Pain Metoclopramide [Reglan] 10 mg PO Q6H PRN #28 tablet PRN Reason: Nausea / Vomiting Diet: Diabetic Activity Restrictions: Activity as Tolerated Shower Restrictions: No Driving Restrictions: No Assistance Devices: Cane Additional Instructions or Follow Up instructions: Resume all your pre-hospital medications. New prescriptions for nausea (Reglan), and diarrhea (Lomotil), for pain (Vicodin ) and topical (Lidocaine gel) have been prescribed to use prn. You are very anemic and it is an Iron deficiency anemia. A prescription for Iron replacement was ordered. You were dehydrated and it affected your kidneys. You should be drinking more fluids, even Sports Drinks during hot weather. See your PCP in follow-up in 7-10 days. Medication refills will come from your PCP. No Smoking: If you smoke, Please STOP! Call for help.
--- NOTE | 2017-10-21 12:17 | DISCHARGE SUMMARY ---
Physician: Arielle Romero MD DATE OF ADMISSION: 10/05/2017 DATE OF DISCHARGE: 10/11/2017 HISTORY OF PRESENT ILLNESS: This is a 72-year-old white male with a history of morbid obesity, diastolic heart failure, type 2 diabetes, hypertension, lymphedema of his legs, sleep apnea who is noncompliant with CPAP but uses nocturnal oxygen, chronic abdominal pain due to a longstanding large ventral hernia. The patient presented to the hospital with abdominal pain, constipation , vomiting. He also had a syncopal episode while trying to have a bowel movement at home, falling to the ground and was helped up by his and son. There was continued dizziness and they brought him to the emergency room. He denied any fever, chills, hematemesis, or rectal bleeding. He was using Zofran p.r.n. nausea and up to 12 Tums tablets per day for heartburn. Evaluation in the ER with a CT scan of the abdomen and pelvis found a small bowel obstruction and he was admitted. HOSPITAL COURSE AND DISCHARGE DIAGNOSES 1. Small bowel obstruction. The patient was seen in surgical consultation and he followed along. After several days of bowel rest, n.p.o. status, intravenous hydration, intravenous meds for pain control and nausea control, he started to have flatus and bowel movements. That developed into diarrhea. The diarrhea was sent for C. difficile which was negative and it grew no bacteria on cultures. He was then started on Lomotil prn. He was advised evaluation with EGD and colonoscopy by the surgeon, but he refused this. He would consider having an outpatient EGD, but stated he would never have another colonoscopy; the last one from approximately a year ago showed narrowing in the ascending colon and he stated that it was "the worst procedure he has ever had. " 2. Acute kidney injury on chronic kidney disease. The patient's baseline creatinine values from prior labs during visits to the ER were 1.3 to 1.8. On presentation now, his creatinine was 1.9 and worsened up to 2.4, then 2.5. His hydration continued therefore and became more aggressive. At discharge, his oral intake was adequate to prevent dehydration and his creatinine at discharge was 1.4. 3. Morbid obesity. This patient's body mass index is 52. In the last 4-5 years, he has been nearly immobile, uses a cane for walking, cannot climb stairs. He uses a motorized scooter also. He was able to ambulate in the hallway while here. 4. Anemia. The patient's admitting hemoglobin was 8.1 despite being dehydrated. With gentle and then more aggressive hydration, his hemoglobin dropped to 7.8. He complained of dizziness and weakness despite being hydrated. He was felt to have symptomatic anemia and was transfused 2 units of packed red blood cells without Lasix in between units in order to replace more volume. His hemoglobin at discharge was 10.0. He was discharged with a prescription for iron replacement as his lab values showed adequate B12 level, but iron level was low at 24, TIBC 350, percent saturation was only 7%. Further workup for iron deficiency anemia is advised. 5. Chronic diastolic heart failure, [place] Heart Association class II-III. The patient was on Lasix preadmission. This was discontinued throughout this entire stay. Leg elevation and p.r.n. Lasix were advised to manage his volume overload. If legs are swollen from lymphedema, it is unclear if the Lasix is needed daily. 6. Type 2 diabetes mellitus. The patient was on a carb-controlled diet and had fingerstick glucose checks and sliding scale Insulin coverage while here. 7. Lymphedema, by report. See #5 above. 8. Ventral hernia with chronic abdominal pain and pannus causing urinary incontinence. The patient has had prior consultations for repair of the ventral hernia and was told he was too high of a risk because of his morbid obesity. The hernia does cause him intermittent abdominal pain for which he takes pain medications, but also uses Tums for "heartburn." The other issue is that the pannus causes obstruction of his urethra and therefore he is urinary incontinent. He requested a Alejandra catheter but was advised to use Depends adult bariatric sized briefs, which were prescribed at discharge. 9. Obstructive sleep apnea. He is admittedly noncompliant with CPAP, but using nocturnal oxygen at night. 10. Syncope prior to admission and dizziness while here. The patient's orthostatic vital signs were checked after aggressive hydration, which was on the day that his hemoglobin was the lowest, and he did have a drop of 18 mmHg in systolic BP. At admission, CT imaging even showed inferior vena cava collapse consistent with volume depletion. The syncope at home was felt to be from his intravascular volume depletion and possibly a vasovagal episode while straining to have a bowel movement. ALLERGIES: CEPHALEXIN. MEDICATIONS AT THE TIME OF DISCHARGE 1. Tums 500 mg 1-2 tablets p.o. q.6h. p.r.n. heartburn. 2. Vitamin D3 5000 units daily. 3. Lomotil 1 tab q.i.d. p.r.n. diarrhea. 4. Iron 324 mg b.i.d. 5. Gabapentin 900 mg every evening. 6. Vicodin 5/325 two tablets p.o. q.i.d. p.r.n. pain. 7. Topical lidocaine ointment p.r.n. pain at the tip of the urethra from urinary incontinence. 8. Losartan 50 mg b.i.d. 9. Reglan 10 mg q.6h. p.r.n. nausea. 10. Ultram 50 mg q.p.m. p.r.n. pain. 11. Ambien 10 mg p.o. q.p.m. p.r.n. insomnia. LABORATORIES AND IMAGING: Reviewed and summarized above. CONDITION AT DISCHARGE: Stable. PHYSICAL EXAMINATION AT DISCHARGE: Morbidly obese white male. VITAL SIGNS: Blood pressure 150/80, heart rate 90, afebrile, room air saturation 100%. HEENT: Unremarkable. NECK: Obese. CHEST: Clear. HEART: Sounds distant, but no audible murmur. ABDOMEN: Very large with a very big pannus extending down to his knees and obscuring his urethra. EXTREMITIES: Legs 3+ edema, which is nonpitting and probably lymphedema. NEUROLOGIC: Grossly intact. CODE STATUS: FULL CODE. FOLLOWUP: With his PCP in 1-2 weeks. Time required to complete this entire discharge, chart review, discussion with patient and dictation: 60 minutes. cc: Roldan Zaragoza MD TD: 10/20/2017 19:49 [facility]
== END 2017-10-11 14:02 | disposition home or self-care (01) | DRG 389 ==
LOC: EDUNIT# → EDBD → ED 17:41 → MS2 21:00
PROVIDERS: ADMIT Specialist; ATTEND Internal Medicine
PROC: 30233N1 Transfusion of Nonautologous Red Blood Cells into Peripheral Vein, Percutaneous Approach (ICD-10-PCS; principal; 2017-10-10)
DX: K56.609 Unspecified intestinal obstruction, unspecified as to partial versus complete obstruction (principal); K43.2 Incisional hernia without obstruction or gangrene; K56.600 Partial intestinal obstruction, unspecified as to cause; Z68.43 Body mass index [BMI] 50.0-59.9, adult; E11.9 Type 2 diabetes mellitus without complications; N17.9 Acute kidney failure, unspecified; I11.0 Hypertensive heart disease with heart failure; I50.9 Heart failure, unspecified; I13.0 Hypertensive heart and chronic kidney disease with heart failure and stage 1 through stage 4 chronic kidney disease, or unspecified chronic kidney disease; I50.32 Chronic diastolic (congestive) heart failure; K43.0 Incisional hernia with obstruction, without gangrene; E66.01 Morbid (severe) obesity due to excess calories; I89.0 Lymphedema, not elsewhere classified; E11.22 Type 2 diabetes mellitus with diabetic chronic kidney disease; N18.9 Chronic kidney disease, unspecified; D50.9 Iron deficiency anemia, unspecified; E86.0 Dehydration; R55 Syncope and collapse; R12 Heartburn; G89.29 Other chronic pain; R32 Unspecified urinary incontinence; G47.33 Obstructive sleep apnea (adult) (pediatric); K59.09 Other constipation; N48.83 Acquired buried penis; E11.51 Type 2 diabetes mellitus with diabetic peripheral angiopathy without gangrene; K44.9 Diaphragmatic hernia without obstruction or gangrene; H91.93 Unspecified hearing loss, bilateral; G62.89 Other specified polyneuropathies; I99.8 Other disorder of circulatory system; Z79.899 Other long term (current) drug therapy; Z91.19 Patient's noncompliance with other medical treatment and regimen; Z91.81 History of falling; Z99.81 Dependence on supplemental oxygen; Z90.49 Acquired absence of other specified parts of digestive tract; Z87.891 Personal history of nicotine dependence
CPT/HCPCS: 36415; 74018; 74176; 74250; 80048; 80053; 82330; 82607; 82728; 82803; 83036; 83540; 83605; 83615; 83690; 84466; 85025; 85044; 86850; 86900; 86901; 86920; 87045; 87046; 87493; 93306; 96361; 96374; 96375; 99284; 99285

== ENCOUNTER 2017-10-15 02:19 | Outpatient (CLI) | payer MEDICARE | END 2017-10-15 02:20 | disposition critical access hospital (66) | LOC: EMS 02:19 | PROVIDERS: ATTEND Surgery | DX: R10.9 Unspecified abdominal pain (principal); R53.1 Weakness; R55 Syncope and collapse | CPT/HCPCS: A0425; A0429 ==

== ENCOUNTER 2017-10-15 02:25 | Emergency (ER) | payer MEDICARE ==
[2017-10-15] MEDS ORDERED: SODIUM CHLORIDE 0.9% 1,000 ML IV ONE (02:40)
[2017-10-15] MEDS ORDERED: HYDROmorphone 1 MG/ML CARPUJECT IVP STA ×5 (02:40→12:55)
[2017-10-15] MEDS ORDERED: ONDANSETRON 4 MG/2 ML VIAL IVP STA ×3 (02:40→05:33)
--- NOTE | 2017-10-15 02:43 | ED Physician Documentation ---
PD HPI ABD PAIN - Stated complaint Stated Complaint: SYNCOPE, ABD PX - Chief complaint Chief Complaint: Abd Pain - History obtained from History obtained from: Patient, EMS - History of Present Illness Timing - onset: How many weeks ago (2.5) Timing - duration: Weeks Timing - details: Gradual onset, Still present, Waxing and waning Quality: Cramping, Sharp, Pain Location: RUQ Improved by: Laying still, Vomiting, Position, Meds Worsened by: Eating, Moving, Breathing, Position, Palpation Associated symptoms: Nausea, Vomiting, Constipation, Near syncope / syncope, Loss of appetite, Weight loss Similar symptoms before: Diagnosis (sbo) Recently seen: Admitted - Additional information Additional information: 72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 He has not been able to eat since he was discharged without pain and he feels that things have just built up and are not coming out. This evening early in the morning his pain has peaked above what he is ever experience previously. During his hospitalization he did receive a 2 unit transfusion and had slow resolution of his symptoms over a 5-day period of time. He did state he was able to eat slight amount in the hospital and slight amount at home. Review of Systems Constitutional: denies: Fever Eyes: denies: Decreased vision Ears: denies: Ear pain Nose: denies: Congestion Throat: denies: Sore throat Cardiac: denies: Chest pain / pressure, Palpitations Respiratory: denies: Dyspnea, Cough GI: reports: Abdominal Pain, Abdominal Swelling, Nausea, Vomiting, Constipation , Diarrhea : denies: Dysuria, Frequency Skin: denies: Rash Musculoskeletal: reports: Extremity swelling. denies: Neck pain, Back pain, Extremity pain Neurologic: reports: Generalized weakness. denies: Focal weakness, Numbness PD PAST MEDICAL HISTORY - Past Medical History Cardiovascular: Congestive heart failure, Hypertension, Peripheral Vascular Disease Respiratory: Shortness of breath, Sleep apnea, CPAP use Neuro: Migraines, Peripheral neuropathy Endocrine/Autoimmune: Type 2 diabetes GI: GI bleed, Hiatal hernia, Chronic constipation, Other : Incontinence, Nocturia, Frequency, Other HEENT: Chronic hearing loss Musculoskeletal: Osteoarthritis Derm: Other - Past Surgical History Past Surgical History: Yes General: Cholecystectomy, Colonoscopy Ortho: Knee replacement, Arthroscopic surgery HEENT: Cataracts - Present Medications Home Medications: Ambulatory Orders Medication Instructions Recorded Confirmed Losartan Potassium 50 mg PO BID 04/15/16 10/05/17 traMADol [Ultram] 1 - 2 tab PO QPM PRN 04/15/16 10/06/17 Calcium Carbonate [Tums (Calcium 500 - 1,000 mg PO Q4H PRN 10/05/17 10/06/17 Carbonate 500mg)] Cholecalciferol [Vitamin D3] 5,000 unit PO DAILY 10/05/17 10/06/17 Gabapentin 900 mg PO QPM 10/05/17 10/06/17 Zolpidem Tartrate [Ambien] 10 mg PO QPM PRN 10/05/17 10/06/17 Diaper,Brief,Adult, Disposable 1 each MC TID PRN #24 each 10/11/17 [Brief] Diphenoxylate/Atropine [Lomotil] 1 tab PO QID PRN #20 tablet 10/11/17 Ferrous Gluconate 324 mg PO BID #60 tablet 10/11/17 Hydrocodone/Acetaminophen [Vicodin 1 each PO BID PRN #10 tablet 10/11/17 5-300 mg Tablet] Lidocaine Ointment 5% [Xylocaine 1 applic TOP QID PRN #1 tube 10/11/17 Ointment 5%] Metoclopramide [Reglan] 10 mg PO Q6H PRN #28 tablet 10/11/17 - Allergies Allergies/Adverse Reactions: Allergies Allergy/AdvReac Type Severity Reaction Status Date / Time cephalexin monohydrate * AdvReac Nausea Verified 10/15/17 02:35 [From Keflex] - Social History Does the pt smoke?: No Smoking Status: Never smoker Does the pt drink ETOH?: No Does the pt have substance abuse?: No - Immunizations Immunizations are current?: No - POLST Patient has POLST: No POLST Status: Full Code PD ED PE NORMAL - Vitals Vital signs reviewed: Yes (hypertensive ) - General General: Alert and oriented X 3, No acute distress, Well developed/nourished - HEENT HEENT: Atraumatic, PERRL, EOMI - Neck Neck: Supple, no meningeal sign - Cardiac Cardiac: RRR, No murmur - Respiratory Respiratory: No respiratory distress, Other (diminished breath sounds bilaterally ) - Abdomen Abdomen: Other (obese with right sided incisional hernia from a vertical right sided gallbladder incision with underlying tenderness. The maximal tenderness appears to be in the right lower quadrant medial to the hernia. There is an edematous lower panus that obscures the penis. ) - Back Back: No CVA TTP - Derm Derm: Normal color, Warm and dry, No rash - Extremities Extremities: No deformity, Other (right lower ext trace edema) - Neuro Neuro: Alert and oriented X 3, consulting it architect 2-12 intact, No motor deficit, No sensory deficit, Normal speech Eye Opening: Spontaneous Motor: Obeys Commands Verbal: Oriented GCS Score: 15 - Psych Psych: Normal mood, Normal affect Results - Vitals Vitals: Vital Signs - 24 hr 10/15/17 10/15/17 10/15/17 02:26 04:08 04:43 Temperature 36.4 C L Heart Rate 88 89 98 Respiratory 18 24 14 Rate Blood Pressure 135/99 H 141/108 H 121/69 O2 Saturation 99 94 93 10/15/17 10/15/17 06:05 06:33 Temperature Heart Rate 92 94 Respiratory 23 20 Rate Blood Pressure 151/65 H 138/82 H O2 Saturation 93 93 Oxygen O2 Source Room air - Labs Labs: Laboratory Tests 10/15/17 10/15/17 10/15/17 02:49 02:49 02:49 WBC 13.7 H RBC 5.44 Hgb 11.8 L Hct 38.1 L MCV 70.1 L MCH 21.7 L MCHC 30.9 L RDW 23.8 H Plt Count 423 MPV 7.4 Neut # (Auto) 10.8 H Lymph # (Auto) 1.6 [place] # (Auto) 1.1 H Eos # (Auto) 0.1 Baso # (Auto) 0.1 Absolute Nucleated RBC 0.00 Nucleated RBC % 0.0 Manual Slide Review Indicated Platelet Estimate NORMAL (130-450,000) RBC Morph Micro Appear 1+ POLYCHROMASIA Sodium 141 Potassium 3.5 Chloride 106 Carbon Dioxide 26 Anion Gap 9.0 BUN 19 Creatinine 1.2 Estimated GFR (MDRD) 60 L Glucose 140 H Lactic Acid Calcium 7.3 L Total Bilirubin 0.5 AST 60 H ALT 52 Alkaline Phosphatase 80 Troponin I < 0.04 Total Protein 6.2 L Albumin 3.1 L Globulin 3.1 Albumin/Globulin Ratio 1.0 Lipase 45 Urine Color Urine Clarity Urine pH Ur Specific [place] Urine Protein Urine Glucose (UA) Urine Ketones Urine Occult Blood Urine Nitrite Urine Bilirubin Urine Urobilinogen Ur Leukocyte Esterase Urine RBC Urine WBC Ur Squamous Epith Cells Urine Bacteria Ur Microscopic Review Urine Culture Comments 10/15/17 10/15/17 02:49 04:04 WBC RBC Hgb Hct MCV MCH MCHC RDW Plt Count MPV Neut # (Auto) Lymph # (Auto) [place] # (Auto) Eos # (Auto) Baso # (Auto) Absolute Nucleated RBC Nucleated RBC % Manual Slide Review Platelet Estimate RBC Morph Micro Appear Sodium Potassium Chloride Carbon Dioxide Anion Gap BUN Creatinine Estimated GFR (MDRD) Glucose Lactic Acid 1.4 Calcium Total Bilirubin AST ALT Alkaline Phosphatase Troponin I Total Protein Albumin Globulin Albumin/Globulin Ratio Lipase Urine Color YELLOW Urine Clarity HAZY Urine pH 7.5 Ur Specific [place] 1.010 Urine Protein TRACE Urine Glucose (UA) NEGATIVE Urine Ketones NEGATIVE Urine Occult Blood TRACE-INTA Urine Nitrite POSITIVE H Urine Bilirubin NEGATIVE Urine Urobilinogen 0.2 (NORMAL) Ur Leukocyte Esterase MODERATE H Urine RBC 0-5 Urine WBC >25 H Ur Squamous Epith Cells FEW Squamous Urine Bacteria Many H Ur Microscopic Review INDICATED Urine Culture Comments INDICATED - Rads (name of study) CT abdomen and pelvis with Radiology: Prelim report reviewed (Impression: 1. Distended fluid-filled stomach. Small bowel obstruction again seen. Palpable mass at the ileocecal junction measuring 7.8 x 6.8 cm, suspicious for malignancy. Possible adjacent lymph nodes measuring up to 3.8 x 2.1 cm. Small amount of free fluid no free air complex ventral hernia again seen containing fat and colon. Fatty liver.), EMP read indepedently, See rad report PD MEDICAL DECISION MAKING - ED course Complexity details: reviewed old records, reviewed results, re-evaluated patient , considered differential, d/w patient, d/w family ED course: 72 year old male with a recent admission for small bowel obstruction has returned to the hospital with continued symptoms of small bowel obstruction. He has significant vomiting early this morning and significant pain. He arrives to the hospital asking to be fixed or shot. He indicates that despite being able to eat something at home he feels that nothing really has gone through. He has continued to have some watery diarrhea but no bowel movements. He has not run a fever but he has had vomiting and pain. This morning his bun and cr are normal and we are able to perform a CT with IV contrast and he appears to be obstructed and has what appears to be a mass with lymph nodes in the right lower quadrant with a concern for malignancy. He is a high surgical risk because of his morbid obesity and existing incisional hernia. We have provided him with an IV and pain medication , antiemetic and saline. Transfer for definitive care is sought and [facility] [place] excessive numbers of patients this morning and we have asked our friends at [facility] for help. Dr. Francoise Lance has graciously agreed to accept him in transfer. - Sepsis Event Vital Signs: Vital Signs - 24 hr 10/15/17 10/15/17 10/15/17 02:26 04:08 04:43 Temperature 36.4 C L Heart Rate 88 89 98 Respiratory 18 24 14 Rate Blood Pressure 135/99 H 141/108 H 121/69 O2 Saturation 99 94 93 10/15/17 10/15/17 06:05 06:33 Temperature Heart Rate 92 94 Respiratory 23 20 Rate Blood Pressure 151/65 H 138/82 H O2 Saturation 93 93 Oxygen O2 Source Room air Departure - Departure Disposition: 02 Transfer Acute Care Hosp Clinical Impression: Morbid obesity, Small bowel obstruction, Abdominal mass, right lower quadrant Urinary tract infection Qualifiers: Urinary tract infection type: acute cystitis Hematuria presence: without hematuria Qualified Code(s): N30.00 - Acute cystitis without hematuria
[2017-10-15 03:08] LABS: ALBUMIN 3.1 g/dL (3.2-5.5); BILIRUBIN,TOTAL 0.5 mg/dL (0.2-1.0); CALCIUM 7.3 mg/dL (8.5-10.3); CREATININE 1.2 mg/dL (0.6-1.2); TOTAL PROTEIN 6.2 g/dL (6.7-8.2)
[2017-10-15 03:13] LABS: BASOPHILS # (AUTO) 0.1 10^3/uL (0.0-0.1); BASOPHILS % (AUTO) 0.7 %; EOSINOPHILS # (AUTO) 0.1 10^3/uL (0.0-0.7); EOSINOPHILS % (AUTO) 0.4 %; HGB - HEMOGLOBIN 11.8 g/dL (14.0-18.0); LYMPHOCYTES # (AUTO) 1.6 10^3/uL (1.5-3.5); LYMPHOCYTES % (AUTO) 11.4 %; MEAN CORPUSCULAR HEMOGLOBIN 21.7 pg (27.0-31.0); MEAN CORPUSCULAR HGB CONC 30.9 g/dL (32.0-36.0); MEAN CORPUSCULAR VOLUME 70.1 fL (80.0-94.0); MEAN PLATELET VOLUME 7.4 fL (7.4-11.4); MONOCYTES # (AUTO) 1.1 10^3/uL (0.0-1.0); MONOCYTES % (AUTO) 8.4 %; NEUTROPHILS # (AUTO) 10.8 10^3/uL (1.5-6.6); NEUTROPHILS % (AUTO) 79.1 %; PLT - PLATELET COUNT 423 10^3/uL (130-450); RED BLOOD COUNT 5.44 10^6/uL (4.70-6.10); RED CELL DISTRIBUTION WIDTH 23.8 % (12.0-15.0); WHITE BLOOD COUNT 13.7 x10^3/uL (4.8-10.8)
[2017-10-15] MEDS ORDERED: IOPAMIDOL-300 100 ML VIAL ONE (03:26)
[2017-10-15 03:44] LABS: PLATELET ESTIMATE, MANUAL NORMAL (130-450,000) (NORMAL)
[2017-10-15] MEDS ORDERED: IOPAMIDOL-300 100 ML VIAL IVP ONE (03:45)
[2017-10-15] MEDS ORDERED: PANTOPRAZOLE 40 MG VIAL IVP STA (03:56)
[2017-10-15 04:12] LABS: BILIRUBIN,URINE NEGATIVE (NEGATIVE); GLUCOSE, URINE (UA) NEGATIVE (NEGATIVE); KETONES,URINE (UA) NEGATIVE (NEGATIVE); LEUKOCYTE ESTERASE, URINE MODERATE (NEGATIVE); NITRITE,URINE POSITIVE (NEGATIVE); OCCULT BLOOD,URINE TRACE-INTA (NEGATIVE); PH,URINE 7.5 PH (5.0-7.5); PROTEIN,URINE TRACE mg/dL (NEGATIVE); UROBILINOGEN,URINE 0.2 (NORMAL) E.U./dL (NORMAL)
[2017-10-15 04:13] LABS: CLARITY,URINE HAZY (CLEAR)
--- NOTE | 2017-10-15 04:17 | CT Report ---
Procedure Date: 10/15/2017 Accession Number: [id number] / [id number] Procedure: CT - Abdomen/Pelvis W/ CPT Code: FULL RESULT: EXAM: CT ABDOMEN AND PELVIS EXAM DATE: 10/15/2017 03:46 AM. CLINICAL HISTORY: Right sided abdominal pain is worse. COMPARISONS: ABDOMEN/PELVIS W/O 10/05/2017. TECHNIQUE: Routine helical CT imaging was performed through the abdomen and pelvis. IV contrast: ISOVUE 300 100mL. Enteric contrast: No. Reconstructions: Coronal and sagittal. In accordance with CT protocol optimization, one or more of the following dose reduction techniques were utilized for this exam: automated exposure control, adjustment of mA and/or KV based on patient size, or use of iterative reconstructive technique. FINDINGS: Lung Bases: Bibasilar atelectasis. Epicardial lymph nodes are unchanged. Liver: Fatty infiltration. Gallbladder/Bile Ducts: Gallbladder is not seen. No biliary dilatation seen. Spleen: Normal. Pancreas: Mild to moderate atrophy. Adrenal Glands: Normal. Kidneys: Bilateral cysts. No masses or hydronephrosis. Peritoneal Cavity/Bowel: Distended fluid-filled stomach. Dilated small bowel loops with air-fluid levels suggesting bowel obstruction. Again seen is complex ventral hernia containing fat and colon. Appendix is not well seen. There appears to be a mass at the ileocecal junction measuring 7.8 x 6.8 cm, series 6 image 77, suspicious for malignancy. There is some possible adjacent adenopathy measuring up to 3.8 x 2.1 cm, series 6 image 68. Small amount of free fluid is seen. No free air is identified. Pelvic Organs: Normal. The bladder and visualized pelvic organs are within normal limits. Vasculature: Mild atherosclerosis. No aortic aneurysm. Bones: Grade 1 degenerative spondylolisthesis at L4-L5. Other: None. IMPRESSION: 1. Distended fluid-filled stomach. Small bowel obstruction again seen. 2. Probable mass at the ileocecal junction measuring 7.8 x 6.8 cm, suspicious for malignancy. Possible adjacent lymph nodes measuring up to 3.8 x 2.1 cm. 3. Small amount of free air. No free fluid. 4. Complex ventral hernia again seen containing fat and colon. 5. Small amount of free fluid. No free air. 6. Fatty liver. RADIA ADDENDUM: 10/15/17 04:42 Impression item 3. is incorrect. There is a small amount of free fluid and no free air.
[2017-10-15 04:18] LABS: BACTERIA,URINE Many /HPF (None Seen); RBC,URINE 0-5 /HPF (0-5); SQUAMOUS EPITHELIAL CELL,UR FEW Squamous (<= Few)
[2017-10-15] MEDS ORDERED: levoFLOXacin 750 MG/150 ML 750 MG/150 ML BAG IV ONE (07:37)
--- NOTE | 2017-10-15 08:07 | ED Physician Documentation ---
ED Addendum - Addendum Addendum: 10/15/17 08:05 assumed care 7 AM 72 male with SBO and abd mass recently admiited to [facility] and failed conservative management and is now accepted at [facility] and awaiting transport nurse advises me pt has inc pain I reviewed his chart and went to see pt he says pain is 7/10 now but he feels it is increasing again I explained that the CT shows a very distended stomach and that he would likely have sig imporvementt of his pain if we placed a NG tube - but he refuses an NG gave 1 mg dilaudid - no zofran as he has received levaquin later gave reglan for NV and repeated doses prior to departure many hr later (long wait for bed confirmation and transfer rig) 10/15/17 20:46
[2017-10-15] MEDS ORDERED: PROMETHAZINE INJ 25 MG in SODIUM CHLORIDE 0.9% 50 ML IV STA (08:54)
[2017-10-15] MEDS ORDERED: METOCLOPRAMIDE 10 MG/2 ML VIAL IVP STA ×2 (08:55→13:13)
[2017-10-15 12:09] VITALS: BP 143/69
[2017-10-15] MEDS ORDERED: METOCLOPRAMIDE 10 MG/2 ML VIAL ONE (13:26)
== END 2017-10-15 13:34 | disposition short-term general hospital (02) ==
LOC: EDUNIT# → ED 02:25
DX: K56.609 Unspecified intestinal obstruction, unspecified as to partial versus complete obstruction (principal); E66.01 Morbid (severe) obesity due to excess calories; Z68.43 Body mass index [BMI] 50.0-59.9, adult; R19.03 Right lower quadrant abdominal swelling, mass and lump; K43.9 Ventral hernia without obstruction or gangrene; K43.2 Incisional hernia without obstruction or gangrene; K31.89 Other diseases of stomach and duodenum; I10 Essential (primary) hypertension; E11.42 Type 2 diabetes mellitus with diabetic polyneuropathy
CPT/HCPCS: 74177; 80053; 81001; 83605; 83690; 84484; 85025; 87077; 87086; 87181; 96361; 96365; 96366; 96375; 96376; 99284; J1170; J2765; Q9967; 81003; 99285

== ENCOUNTER 2017-11-19 10:12 | Outpatient (CLI) | payer MEDICARE ==
[2017-11-19 12:27] LABS: BASOPHILS # (AUTO) 0.1 10^3/uL (0.0-0.1); BASOPHILS % (AUTO) 0.9 %; EOSINOPHILS # (AUTO) 0.5 10^3/uL (0.0-0.7); EOSINOPHILS % (AUTO) 6.9 %; HGB - HEMOGLOBIN 9.8 g/dL (14.0-18.0); LYMPHOCYTES # (AUTO) 0.8 10^3/uL (1.5-3.5); LYMPHOCYTES % (AUTO) 11.6 %; MEAN CORPUSCULAR HEMOGLOBIN 23.2 pg (27.0-31.0); MEAN CORPUSCULAR HGB CONC 30.9 g/dL (32.0-36.0); MEAN PLATELET VOLUME 7.3 fL (7.4-11.4); MONOCYTES # (AUTO) 0.7 10^3/uL (0.0-1.0); NEUTROPHILS # (AUTO) 5.2 10^3/uL (1.5-6.6); NEUTROPHILS % (AUTO) 71.6 %; PLT - PLATELET COUNT 343 10^3/uL (130-450); RED BLOOD COUNT 4.24 10^6/uL (4.70-6.10); WHITE BLOOD COUNT 7.3 x10^3/uL (4.8-10.8)
[2017-11-19 12:31] LABS: RED CELL DISTRIBUTION WIDTH 24.2 % (12.0-15.0)
== END 2017-11-19 10:13 | disposition home or self-care (01) ==
LOC: LAB.WCP 10:12
PROVIDERS: ATTEND Family Medicine
DX: D64.9 Anemia, unspecified (principal)
CPT/HCPCS: 36415; 85025

== ENCOUNTER 2018-03-17 17:34 | Outpatient (CLI) | payer MEDICARE | END 2018-03-17 17:35 | disposition EMS.NT | LOC: EMS 17:34 | PROVIDERS: ATTEND Surgery | DX: Z03.89 Encounter for observation for other suspected diseases and conditions ruled out (principal) ==

== ENCOUNTER 2018-05-25 08:16 | Outpatient (CLI) | payer MEDICARE | END 2018-05-25 08:17 | disposition critical access hospital (66) | LOC: EMS 08:16 | PROVIDERS: ATTEND Surgery | DX: R53.1 Weakness (principal) | CPT/HCPCS: A0425; A0427 ==

== ENCOUNTER 2018-05-25 08:27 | Inpatient (IN) | payer MEDICARE ==
--- NOTE | 2018-05-25 08:29 | ED Physician Documentation ---
PD HPI SYNCOPE - Stated complaint Stated Complaint: WEAKNESS - History obtained from History obtained from: Patient, Family (), EMS - History of Present Illness Witnessed: Witnessed Timing - onset: Today Duration: Seconds Preceding symptoms: Light headed, Generalized weakness (he was getting up to bathroom. says it was difficult for her to help lift him to sit up and then he weakly got to bathroom. Was sitting on toilet, got pale and fainted. She could not get him up. EMS found his BP low in 70s. It improved enroute with lying him and also with some IV fluids. They brought him here as closer, though he has gotten his regular care at [facility], and chemo there. Had new chemo regimen a week ago and has had severe weakness, vomiting and diarrhea since that, and says he has not gotten out of bed but twice this past week.). No: Headache, Chest pain Contributing factors: Recent med change (new chemo regimen a week ago with marked weakness, N/V/D since then.) Review of Systems Constitutional: reports: Fatigue. denies: Fever, Myalgias Nose: denies: Rhinorrhea / runny nose, Congestion Throat: denies: Sore throat Cardiac: denies: Chest pain / pressure, Palpitations Respiratory: denies: Dyspnea, Cough GI: reports: Nausea, Vomiting, Diarrhea (the past week). 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 undergoing chemo. Was to have RT today. ) - Present Medications Home Medications: Ambulatory Orders Medication Instructions Recorded Confirmed Losartan Potassium 50 mg PO BID 04/15/16 05/25/18 Calcium Carbonate [Tums (Calcium 500 - 1,000 mg PO Q4H PRN 10/05/17 05/25/18 Carbonate 500mg)] Cholecalciferol [Vitamin D3] 5,000 unit PO DAILY 10/05/17 05/25/18 Zolpidem Tartrate [Ambien] 10 mg PO QPM PRN 10/05/17 05/25/18 Ferrous Gluconate 324 mg PO BID #60 tablet 10/11/17 05/25/18 Furosemide [Lasix] 40 mg PO BID 05/25/18 05/25/18 Gabapentin 900 mg PO DAILY 05/25/18 05/25/18 Hydralazine HCl 25 mg PO TID 05/25/18 05/25/18 LORazepam [Lorazepam] 1 mg PO PRN PRN 05/25/18 05/25/18 Morphine ER [Ms Contin] 15 mg PO Q12H 05/25/18 05/25/18 Ondansetron [Ondansetron Odt] 8 mg SL Q8H PRN 05/25/18 05/25/18 Oxycodone HCl 10 mg PO BID 05/25/18 05/25/18 PARoxetine HCl [Paroxetine HCl] 30 mg PO DAILY 05/25/18 05/25/18 Tramadol HCl 50 mg PO QPM 05/25/18 05/25/18 - Allergies Allergies/Adverse Reactions: Allergies Allergy/AdvReac Type Severity Reaction Status Date / Time cephalexin monohydrate * AdvReac Nausea Verified 05/25/18 08:36 [From Keflex] PD ED PE NORMAL - Vitals Vital signs reviewed: Yes - General General: Alert and oriented X 3, Well developed/nourished - HEENT HEENT: PERRL (nonicteric), Ears normal, Pharynx benign. No: Moist mucous membranes - Neck Neck: Supple, no meningeal sign, No adenopathy - Cardiac Cardiac: RRR, No murmur - Respiratory Respiratory: Clear bilaterally - Abdomen Abdomen: Normal bowel sounds, Soft, Non tender, Non distended, Other (obese) - Male Male : Deferred - Rectal Rectal: Deferred - Back Back: No CVA TTP - Derm Derm: Warm and dry. No: Normal color (pale) - Extremities Extremities: No tenderness to palpate, Normal ROM s pain, No edema, No calf tenderness / cord Results - Vitals Vitals: Vital Signs - 24 hr 05/25/18 05/25/18 05/25/18 08:23 09:29 10:17 Temperature 36.6 C Heart Rate 79 76 65 Heart Rate [ Sitting] Heart Rate [ Supine] Respiratory 16 14 14 Rate Blood Pressure 129/113 H 113/60 Blood Pressure [Sitting] Blood Pressure [Supine] O2 Saturation 96 95 93 05/25/18 05/25/18 05/25/18 10:49 12:23 12:26 Temperature Heart Rate 67 70 Heart Rate [ 90 Sitting] Heart Rate [ 70 Supine] Respiratory 12 14 Rate Blood Pressure 132/72 H 119/61 Blood Pressure 134/90 H [Sitting] Blood Pressure 130/62 [Supine] O2 Saturation 92 95 Oxygen O2 Source Room air - Labs Labs: Laboratory Tests 05/25/18 05/25/18 05/25/18 08:56 08:56 08:56 WBC 9.8 RBC 4.43 L Hgb 13.5 L Hct 39.9 L MCV 90.1 MCH 30.5 MCHC 33.9 RDW 13.7 Plt Count 239 MPV 6.7 L Neut # (Auto) 8.4 H Lymph # (Auto) 0.9 L Cameron # (Auto) 0.3 Eos # (Auto) 0.1 Baso # (Auto) 0.1 Absolute Nucleated RBC 0.01 Nucleated RBC % 0.2 Sodium 139 Potassium 2.8 L Chloride 91 L Carbon Dioxide 35 H Anion Gap 13.0 BUN 20 Creatinine 1.8 H Estimated GFR (MDRD) 37 L Glucose 169 H Lactic Acid 3.4 H* Calcium 9.1 Magnesium 1.4 L Total Bilirubin 0.8 AST 35 ALT 34 Alkaline Phosphatase 72 Troponin I B-Natriuretic Peptide Total Protein 7.0 Albumin 3.3 Globulin 3.7 Albumin/Globulin Ratio 0.9 L Lipase 29 05/25/18 05/25/18 05/25/18 08:56 08:56 10:40 WBC RBC Hgb Hct MCV MCH MCHC RDW Plt Count MPV Neut # (Auto) Lymph # (Auto) Cameron # (Auto) Eos # (Auto) Baso # (Auto) Absolute Nucleated RBC Nucleated RBC % Sodium Potassium Chloride Carbon Dioxide Anion Gap BUN Creatinine Estimated GFR (MDRD) Glucose Lactic Acid 1.9 Calcium Magnesium Total Bilirubin AST ALT Alkaline Phosphatase Troponin I < 0.04 B-Natriuretic Peptide 129 H Total Protein Albumin Globulin Albumin/Globulin Ratio Lipase PD MEDICAL DECISION MAKING - ED course Complexity details: re-evaluated patient (better color with IV fluids. BP normal. He is unable to sit up on his own, never mind stand. His is unable to care for him at home without his standing. Will need further fluids and nutrition. He is still nauseated as well, with nausea upon trying PO intake here in the ED. So will be unable to maintain hydration as well. ), considered differential, d/w patient, d/w family (), d/w compliance consultant (Dr. Price, Oncology at [facility]) Departure - Departure Disposition: 66 [facility] DC/Xfer Clinical Impression: General weakness, Nausea vomiting and diarrhea, Status post chemotherapy, Dehydration, Transient hypotension Syncope Qualifiers: Syncope type: unspecified Qualified Code(s): R55 - Syncope and collapse Condition: Stable Record reviewed to determine appropriate education?: Yes Discharge Date/Time: 05/25/18 14:25
[2018-05-25] MEDS ORDERED: SODIUM CHLORIDE 0.9% 1,000 ML IV ONE ×3 (08:44→11:53)
--- NOTE | 2018-05-25 09:05 | XRAY Report ---
Reason: chest pain Procedure Date: 05/25/2018 Accession Number: [id number] / [id number] Procedure: XR - Chest 1 View X-Ray CPT Code: 62661 FULL RESULT: EXAM: CHEST RADIOGRAPHY EXAM DATE: 05/25/2018 08:55 AM. CLINICAL HISTORY: Chest pain. COMPARISON: XR CHEST PA AND LAT 01/12/2008 2:09 PM. TECHNIQUE: 1 view. FINDINGS: Lungs/Pleura: No focal opacities evident. No pleural effusion. No pneumothorax. Mediastinum: Within exam limitations, the cardiomediastinal contour is normal. Other: Interval placement of a left subclavian Port-A-Cath, terminating over the superior vena cava. Multilevel thoracic and lumbar spondylosis and degenerative changes involving the left acromioclavicular joint. IMPRESSION: 1. Appropriate position of the left subclavian Port-A-Cath. 2. No acute findings. 3. Other stable chronic degenerative changes. RADIA
[2018-05-25 09:07] LABS: BASOPHILS # (AUTO) 0.1 10^3/uL (0.0-0.1); BASOPHILS % (AUTO) 0.9 %; EOSINOPHILS # (AUTO) 0.1 10^3/uL (0.0-0.7); EOSINOPHILS % (AUTO) 1.3 %; HGB - HEMOGLOBIN 13.5 g/dL (14.0-18.0); LYMPHOCYTES # (AUTO) 0.9 10^3/uL (1.5-3.5); MEAN CORPUSCULAR HEMOGLOBIN 30.5 pg (27.0-31.0); MEAN CORPUSCULAR HGB CONC 33.9 g/dL (32.0-36.0); MEAN CORPUSCULAR VOLUME 90.1 fL (80.0-94.0); MEAN PLATELET VOLUME 6.7 fL (7.4-11.4); MONOCYTES # (AUTO) 0.3 10^3/uL (0.0-1.0); MONOCYTES % (AUTO) 2.8 %; NEUTROPHILS # (AUTO) 8.4 10^3/uL (1.5-6.6); PLT - PLATELET COUNT 239 10^3/uL (130-450); RED BLOOD COUNT 4.43 10^6/uL (4.70-6.10); RED CELL DISTRIBUTION WIDTH 13.7 % (12.0-15.0); WHITE BLOOD COUNT 9.8 x10^3/uL (4.8-10.8)
[2018-05-25 09:17] LABS: ALBUMIN 3.3 g/dL (3.2-5.5); ALBUMIN/GLOBULIN RATIO 0.9 (1.0-2.2); BILIRUBIN,TOTAL 0.8 mg/dL (0.2-1.0); CREATININE 1.8 mg/dL (0.6-1.2); MAGNESIUM 1.4 mg/dL (1.7-2.8)
[2018-05-25 09:28] LABS: CALCIUM 9.1 mg/dL (8.5-10.3)
[2018-05-25] MEDS ORDERED: POTASSIUM BICARB 25 MEQ TABLET PO STA (09:31)
[2018-05-25] MEDS ORDERED: POTASSIUM CHLOR 10 MEQ/100 ML 10 MEQ/100 ML BAG IV ONE (09:31)
[2018-05-25] MEDS ORDERED: FAMOTIDINE 20 MG/2 ML VIAL IVP STA (11:53)
[2018-05-25] MEDS ORDERED: ONDANSETRON 4 MG/2 ML VIAL IVP STA (11:53)
[2018-05-25] MEDS ORDERED: SODIUM CHLORIDE FLUSH 0.9% 10 ML SYRINGE IVP PRN (13:16)
[2018-05-25] MEDS ORDERED: PROCHLORPERAZINE 10 MG/2 ML VIAL IVP PRN (13:16)
[2018-05-25] MEDS ORDERED: ONDANSETRON 4 MG/2 ML VIAL IVP PRN (13:16)
--- NOTE | 2018-05-25 13:25 | HISTORY & PHYSICAL EXAMINATION ---
Chief Complaint - Chief Complaint Chief Complaint: syncope and dehydration History of Present Illness - Admitted From Admitted From:: [facility] - History Obtained From Records Reviewed: Yes History obtained from: Patient, patient's , EMR Exam Limitations: No - History of Present Illness HPI Comment/Other: Mr. Reed is a 73 year old male with a PMH significant for metastatic colon cancer currently receiving chemotherapy, morbid obesity, diastolic heart failure, diet controlled T2DM, and MAR who presented to the [facility] ER after a syncopal episode at home. Much of the history is taken from the . T he patient had chemo last Friday. He is currently receiving 'stronger' doses of chemotherapy. He is followed by Dr. Emerson in [place]. Since his last chemo dose, the patient has been mostly bed bound due to weakness. He has had persistent diarrhea since chemotherapy. The has attempted to keep the patient hydrated. He was able to keep oatmeal down last night, but other than that for the last 24 hours he has been unable to keep food down. The patient got up alone to go to the bathroom this morning. He began to bang on the wall and the patient's found him in the bathroom confused and quite pale. Their son lives with them and they both attempted to get the patient out of the bathroom. They were unable to do so and EMS was called. When EMS arrived, his blood pressure was low and he was fluid resuscitated and brought to the ER. Per , Dr. Emerson is aware of patient's admission. He was due to start radiation today. In the ER, he was noted to have a potassium level of 2.8. This was repleted with 10 mEq potassium and PO potassium bicarbonate. He was also given IV fluid hydrat ion. His lactic acid was 3.4 on admission and decreased to 1.9 after IV fluids. He reports having a decreased appetite, general weakness, denies CP or SOB, currently denies abdominal pain. He has a suprapubic catheter that was placed in 09/2017 with last change occurring May 13, 2018. He also has a left port that is not accessed. Patient wishes to be a full code. History - Past Medical History Cardiovascular: reports: Congestive heart failure, Hypertension, Peripheral Vascular Disease Respiratory: reports: Shortness of breath, Sleep apnea, CPAP use Neuro: reports: Migraines, Peripheral neuropathy Endocrine/Autoimmune: reports: Type 2 diabetes GI: reports: GI bleed, Hiatal hernia, Chronic constipation, Other : reports: Incontinence, Nocturia, Frequency, Other HEENT: reports: Chronic hearing loss Musculoskeletal: reports: Osteoarthritis Derm: reports: Other MRSA Hx?: No - Past Surgical History General: reports: Cholecystectomy, Colonoscopy Ortho: reports: Knee replacement, Arthroscopic surgery HEENT: reports: Cataracts - Family & Social History Family History: Mother: , Mental Illness ( at age 92, schizophrenia), Father: , CAD, Diabetes, Type 2, [place] ( in his 80s) Family History Comment/Other: neg for GI tumors Living arrangement: At home Living Situation: With spouse/s.o. 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 Has lived in [place], [place] for 20 years. to , [place], for 53 years. 3 adult children. Diffic ulty ambulating for past 6-7 years, uses cane and has motorized scooter, unable to climb stairs. - Substance History Use: Uses substance without health or social issues: NONE (Previous 3 PPD smoker x 20 years, quit 35 years ago) - POLST Patient has POLST: No POLST Status: Full Code Meds/Allgy - Home Medications Home Medications: Ambulatory Orders Medication Instructions Recorded Confirmed Losartan Potassium 50 mg PO BID 04/15/16 05/25/18 Calcium Carbonate [Tums (Calcium 500 - 1,000 mg PO Q4H PRN 10/05/17 05/25/18 Carbonate 500mg)] Cholecalciferol [Vitamin D3] 5,000 unit PO DAILY 10/05/17 05/25/18 Zolpidem Tartrate [Ambien] 10 mg PO QPM PRN 10/05/17 05/25/18 Ferrous Gluconate 324 mg PO BID #60 tablet 10/11/17 05/25/18 Furosemide [Lasix] 40 mg PO BID 05/25/18 05/25/18 Gabapentin 900 mg PO DAILY 05/25/18 05/25/18 Hydralazine HCl 25 mg PO TID 05/25/18 05/25/18 LORazepam [Lorazepam] 1 mg PO PRN PRN 05/25/18 05/25/18 Morphine ER [Ms Contin] 15 mg PO Q12H 05/25/18 05/25/18 Ondansetron [Ondansetron Odt] 8 mg SL Q8H PRN 05/25/18 05/25/18 Oxycodone HCl 10 mg PO BID 05/25/18 05/25/18 PARoxetine HCl [Paroxetine HCl] 30 mg PO DAILY 05/25/18 05/25/18 Tramadol HCl 50 mg PO QPM 05/25/18 05/25/18 - Allergies Allergies/Adverse Reactions: Allergies Allergy/AdvReac Type Severity Reaction Status Date / Time cephalexin monohydrate * AdvReac Nausea Verified 05/25/18 08:36 [From Keflex] Review of Systems - Constitutional Constitutional: reports: Fatigue, Weakness, Poor appetite. denies: Fever, Chills - Cardiovascular Cariovascular: reports: Edema, Lightheadedness, Syncope. denies: Irregular heart rate, Palpitations, Chest pain - Respiratory Respiratory: denies: Cough, Sputum production, Wheezing, Orthopnea - Gastrointestinal Gastrointestinal: reports: Abdominal pain, Diarrhea, Nausea, Vomiting - Genitourinary Genitourinary: reports: Other (has suprapubic catheter). denies: Dysuria, Frequency, Urgency - Musculoskeletal Musculoskeletal: reports: Back pain, Muscle weakness - Neurological Neurological: reports: General weakness. denies: Headache, Dizziness - All Other Systems All Other Systems: reports: Reviewed and negative Prior Level of Functionality: Patient ambulates with walker at home. Exam - Vital Signs Reviewed Vital Signs: Yes Vital Signs: Vital Signs x48h Temp Pulse Pulse Pulse Resp BP BP 05/25/18 12:26 90 70 134/90 H 05/25/18 12:23 70 14 119/61 05/25/18 10:49 67 12 132/72 H 05/25/18 10:17 65 14 05/25/18 09:29 76 14 113/60 05/25/18 08:23 36.6 C 79 16 129/113 H BP Pulse Ox 05/25/18 12:26 130/62 05/25/18 12:23 95 05/25/18 10:49 92 05/25/18 10:17 93 05/25/18 09:29 95 05/25/18 08:23 96 - Physical Exam General Appearance: positive: No acute distress, Alert Eyes Bilateral: positive: Normal inspection, PERRL, EOMI ENT: positive: ENT inspection nml, Pharynx nml, Dry mucous membranes Neck: positive: Nml inspection, Trachea midline Respiratory: positive: Chest non-tender, No respiratory distress, Breath sounds nml Cardiovascular: positive: Regular rate & rhythm, No murmur, No gallop Peripheral Pulses: positive: 2+ Abdomen: positive: Non-tender, No organomegaly, Nml bowel sounds, No distention, Other (suprapubic catheter with dried sanguineous drainage at insertion site). negative: Guarding, Rebound Skin: positive: Warm, Dry Extremities: positive: Non-tender, Pedal edema Neurologic/Psychiatric: positive: Oriented x3, CN's nml (2-12), Motor nml, Sensation nml, Weakness Conclusion/Plan - Problem List (1) Dehydration Conclusion/Plan: Patient with n/v/d after chemotherapy last Friday. His reports immediate diarrhea after infusions. She tries to keep him hydrated but the only thing that he could keep down was oatmeal last night. He was hypotensive when EMS arrived today. He was given IVF in the ER. He will be admitted for IV fluid hydration. Obtain orthostatic vital signs, if able. Follow-up labs in the morning. (2) Syncope Conclusion/Plan: Likely secondary to above. Qualifiers: Syncope type: unspecified Qualified Code(s): R55 - Syncope and collapse (3) Nausea vomiting and diarrhea Conclusion/Plan: Patient with persistent n/v/d since his last chemo infusion on Friday. (4) Lactic acidosis Conclusion/Plan: Lactic acid 3.4 in ER, this decreased to 1.9 after IV fluids. Will continue to trend lactate. (5) Hypokalemia Conclusion/Plan: Potassium level 2.8. Replaced with 10 mEq in the ER. Admit to inpatient status. Place on telemetry. Will order 40 mEq IV to be given. Recheck potassium level in the morning (6) General weakness Conclusion/Plan: Patient quite debilitated with this new chemo regimen he is on. Per his , he has remained in bed mostly for the last 7 days after his chemo infusion. Prior to this chemo regimen, it has been noted that his mobility has been poor and he is unable to climb stairs and has a motorized scooter. He gets around the house in a walker. Will consult PT. (7) Diabetes type 2, controlled Conclusion/Plan: Patient reports he is diet-controlled. Will order carbohydrate managed diet. Qualifiers: Diabetes mellitus custodial insulin use: without charging car operator use Diabetes mellitus complication status: without complication Qualified Code(s): E11.9 - Type 2 diabetes mellitus without complications (8) Hypomagnesemia Conclusion/Plan: Magnesium level 1.4 on admission. Replete with 2 mg IV magnesium. Recheck magnesium tomorrow morning. (9) Morbid obesity Conclusion/Plan: Patient is nearly immobile. Ambulates with a walker at home. Will consult PT. (10) Full code status Conclusion/Plan: Patient wishes to be a full code. - Lab Results Lab results reviewed: Yes Fish Bones: 05/25/18 08:56 05/25/18 08:56 - Diagnostic Imaging Results Diagnostic Imaging Results: positive: Final report reviewed Diagnostic Imaging Results Comments: 1-view CXR 05/25/2018: 1. Appropriate position of the left subclavian Port-A-Cath 2. No acute findings 3. Other stable chronic degenerative changes - EKG Results EKG Interpreted Independently: Yes EKG Comparison: Unchanged from prior EKG EKG Findings: Poor tracing. Normal sinus rhythm without ischemic changes Core Measures - Anticipated LOS I expect patient to be DC'd or transferred within 96 hours.: Yes - DVT/VTE - Prophylaxis VTE/DVT Device ordered at admit?: Yes
[2018-05-25] MEDS ORDERED: MORPHINE 2 MG/ML CARPUJECT IVP PRN ×2 (14:07→18:57)
[2018-05-25] MEDS: SODIUM CHLORIDE 0.9% 1,000 ML IV SCH (14:58)
[2018-05-25] MEDS ORDERED: POTASSIUM CHLORIDE INJ 40 MEQ in SODIUM CHLORIDE 0.9% 480 ML IV ONE (15:58)
[2018-05-25] MEDS ORDERED: MAGNESIUM SULFATE 2 GRAM 2 GM/50 ML BAG IV ONE (15:59)
[2018-05-25] MEDS: SODIUM CHLORIDE FLUSH 0.9% 10 ML SYRINGE IVP SCH (16:24)
[2018-05-25] MEDS ORDERED: CALCIUM CARBONATE CHEW 500 MG TABLET PO PRN (18:54)
[2018-05-25] MEDS: MORPHINE ER 15 MG TABLET PO SCH (20:29)
[2018-05-25] MEDS ORDERED: ZINC OXIDE 20% OINT 28.35 GM TUBE TOP PRN (22:46)
[2018-05-25] MEDS: oxyCODONE 5 MG TABLET PO SCH (22:47)
[2018-05-25] MEDS: traMADol 50 MG TABLET PO SCH (22:47)
[2018-05-26] MEDS ORDERED: LORazepam 1 MG TABLET PO PRN (03:23)
[2018-05-26] MEDS: SODIUM CHLORIDE FLUSH 0.9% 10 ML SYRINGE IVP SCH ×4 (03:34→23:40)
[2018-05-26] MEDS: SODIUM CHLORIDE 0.9% 1,000 ML IV SCH ×2 (03:34→09:12)
[2018-05-26] MEDS: MORPHINE ER 15 MG TABLET PO SCH ×2 (06:13→19:45)
[2018-05-26 06:16] LABS: CALCIUM 8.4 mg/dL (8.5-10.3)
[2018-05-26 06:17] LABS: BASOPHILS % (AUTO) 0.4 %; EOSINOPHILS # (AUTO) 0.2 10^3/uL (0.0-0.7); EOSINOPHILS % (AUTO) 3.6 %; HGB - HEMOGLOBIN 11.6 g/dL (14.0-18.0); LYMPHOCYTES # (AUTO) 1.4 10^3/uL (1.5-3.5); LYMPHOCYTES % (AUTO) 26.4 %; MEAN CORPUSCULAR HGB CONC 33.2 g/dL (32.0-36.0); MEAN CORPUSCULAR VOLUME 90.5 fL (80.0-94.0); MEAN PLATELET VOLUME 6.8 fL (7.4-11.4); MONOCYTES # (AUTO) 0.3 10^3/uL (0.0-1.0); MONOCYTES % (AUTO) 4.9 %; NEUTROPHILS # (AUTO) 3.4 10^3/uL (1.5-6.6); NEUTROPHILS % (AUTO) 64.7 %; PLT - PLATELET COUNT 165 10^3/uL (130-450); RED BLOOD COUNT 3.86 10^6/uL (4.70-6.10); WHITE BLOOD COUNT 5.3 x10^3/uL (4.8-10.8)
[2018-05-26 06:23] LABS: CREATININE 1.6 mg/dL (0.6-1.2); MAGNESIUM 1.9 mg/dL (1.7-2.8)
[2018-05-26] MEDS: HEPARIN 5,000 UNIT/ML VIAL SUBQ SCH ×2 (08:25→20:20)
[2018-05-26] MEDS: POLYETHYLENE GLYCOL 3350 17 GM PACKET PO SCH (08:27)
[2018-05-26] MEDS: PARoxetine 10 MG TABLET PO SCH (08:29)
[2018-05-26] MEDS: oxyCODONE 5 MG TABLET PO SCH ×2 (08:29→20:19)
[2018-05-26] MEDS ORDERED: GABAPENTIN 300 MG CAPSULE PO SCH ×2 (09:00→21:00)
[2018-05-26] MEDS: POTASSIUM CHLOR 10 MEQ/100 ML 10 MEQ/100 ML BAG IV SCH ×4 (09:13→14:47)
[2018-05-26] MEDS: FUROSEMIDE 20 MG TABLET PO SCH ×2 (11:02→14:40)
--- NOTE | 2018-05-26 11:42 | PROVIDER PROGRESS NOTE ---
Subjective - Prog Note Date Prog Note Date: 05/26/18 Prog Note Time: 08:45 - Subjective Subjective: Patient able to eat a small amount of breakfast without nausea K 3.2 today Still feels weak Continues with loose bowel movements Wound consult placed for open areas under pannus Wore 3L NC last night Current Medications - Current Medications Current Medications: Calcium Carbonate/Glycine (Tums) 1,000 mg PO Q4H PRN PRN Reason: indegestion Last Admin: 05/26/18 09:17 Dose: 1,000 mg Furosemide (Lasix) 20 mg PO BIDDIURETIC [facility] Last Admin: 05/26/18 11:02 Dose: 20 mg Gabapentin (Neurontin) 900 mg PO QPM [facility] Heparin Sodium (Porcine) () 5,000 unit SUBQ BID [facility] Last Admin: 05/26/18 08:25 Dose: 5,000 unit Sodium Chloride (Normal Saline 0.9%) 1,000 mls @ 100 mls/hr IV .Q10H [facility] Last Admin: 05/26/18 09:12 Dose: 100 mls/hr Potassium Chloride (Potassium Chloride) 10 meq in 100 mls @ 100 mls/hr IV Q1H [facility] Stop: 05/26/18 11:59 Last Admin: 05/26/18 10:53 Dose: 100 mls/hr Lorazepam (Ativan) 1 mg PO DAILY PRN PRN Reason: Anxiety Morphine Sulfate () 15 mg PO Q12H [facility] Last Admin: 05/26/18 06:13 Dose: 15 mg Morphine Sulfate (Morphine (Carpuject)) 2 mg IVP Q4HR PRN PRN Reason: PAIN Multi-Ingredient Ointment (Zinc Oxide) 1 applic TOP PRN PRN PRN Reason: Skin Care Stop: 06/01/18 22:45 Ondansetron HCl (Zofran Inj) 4 mg IVP Q6HR PRN PRN Reason: Nausea / Vomiting Oxycodone HCl (Roxicodone) 10 mg PO BID [facility] Last Admin: 05/26/18 08:29 Dose: 10 mg Paroxetine HCl (Paxil) 30 mg PO DAILY [facility] Last Admin: 05/26/18 08:29 Dose: 30 mg Polyethylene Glycol (Miralax) 17 gm PO DAILY [facility] Last Admin: 05/26/18 08:27 Dose: Not Given Prochlorperazine Edisylate (Compazine Inj) 10 mg IVP Q6HR PRN PRN Reason: Nausea / Vomiting Last Admin: 05/25/18 16:37 Dose: 10 mg Sodium Chloride (Normal Saline Flush 0.9%) 10 ml IVP PRN PRN PRN Reason: NEEDED PER PROVIDER ORDERS Last Admin: 05/25/18 16:37 Dose: 10 ml Sodium Chloride (Normal Saline Flush 0.9%) 10 ml IVP 0100,0900,1700 [facility] Last Admin: 05/26/18 08:28 Dose: 10 ml Tramadol HCl (Ultram) 50 mg PO QPM [facility] Last Admin: 05/25/18 22:47 Dose: 50 mg Zolpidem Tartrate (Ambien) 10 mg PO QPM PRN PRN Reason: Insomnia Objective - Vital Signs/Intake & Output Reviewed Vital Signs: Yes Vital Signs: Vital Signs x48h Temp Pulse Pulse Resp BP BP Pulse Ox 05/26/18 10:59 36.7 C 61 18 100 05/26/18 08:14 36.7 C 61 20 98 05/26/18 08:00 71 151/73 H 05/26/18 04:30 36.7 C 52 L 20 163/67 H 98 Intake & Output: Intake & Output 05/23/18 05/24/18 05/25/18 05/26/18 23:59 23:59 23:59 23:59 Intake Total 3111.667 1418.333 Output Total 300 250 Balance 2811.667 1168.333 - Objective General Appearance: positive: No acute distress, Alert Eyes Bilateral: positive: Normal inspection, PERRL, EOMI ENT: positive: ENT inspection nml, Pharynx nml Neck: positive: Nml inspection, Trachea midline Respiratory: positive: Chest non-tender, No respiratory distress, Breath sounds nml Cardiovascular: positive: Regular rate & rhythm, No murmur, No gallop Peripheral Pulses: 2+ Dorsalis pedis (R), 2+ Dorsalis pedis (L) Abdomen: positive: Non-tender, No organomegaly, Nml bowel sounds, No distention, Other (obese, suprapubic catheter) Skin: positive: Warm, Dry Extremities: positive: Non-tender, Pedal edema Neurologic/Psychiatric: positive: Oriented x3, CN's nml (2-12), Sensation nml, Mood/affect nml, Weakness - Lab Results Fish Bones: 05/26/18 06:02 05/26/18 06:02 Other Labs: Lab Results x24hrs 05/26/18 05/26/18 05/26/18 Range/Units 10:13 06:02 06:02 WBC (4.8-10.8) x10^3/uL RBC (4.70-6.10) 10^6/uL Hgb (14.0-18.0) g/dL Hct (42.0-52.0) % MCV (80.0-94.0) fL MCH (27.0-31.0) pg MCHC (32.0-36.0) g/dL RDW (12.0-15.0) % Plt Count (130-450) 10^3/uL MPV (7.4-11.4) fL Neut # (Auto) (1.5-6.6) 10^3/uL Lymph # (Auto) (1.5-3.5) 10^3/uL [place] # (Auto) (0.0-1.0) 10^3/uL Eos # (Auto) (0.0-0.7) 10^3/uL Baso # (Auto) (0.0-0.1) 10^3/uL Absolute Nucleated RBC x10^3/uL Nucleated RBC % /100WBC Sodium 138 (135-145) mmol/L Potassium 3.2 L (3.5-5.0) mmol/L Chloride 95 L (101-111) mmol/L Carbon Dioxide 33 H (21-32) mmol/L Anion Gap 10.0 (6-13) BUN 21 H (6-20) mg/dL Creatinine 1.6 H (0.6-1.2) mg/dL Estimated GFR (MDRD) 43 L (>89) Glucose 103 H (70-100) mg/dL Lactic Acid 0.7 (0.5-2.2) mmol/L Calcium 8.4 L (8.5-10.3) mg/dL Magnesium 1.9 (1.7-2.8) mg/dL Troponin I < 0.04 (<0.49) ng/mL 03/05/19 Range/Units 06:02 WBC 5.3 (4.8-10.8) x10^3/uL RBC 3.86 L (4.70-6.10) 10^6/uL Hgb 11.6 L (14.0-18.0) g/dL Hct 34.9 L (42.0-52.0) % MCV 90.5 (80.0-94.0) fL MCH 30.0 (27.0-31.0) pg MCHC 33.2 (32.0-36.0) g/dL RDW 14.0 (12.0-15.0) % Plt Count 165 (130-450) 10^3/uL MPV 6.8 L (7.4-11.4) fL Neut # (Auto) 3.4 (1.5-6.6) 10^3/uL Lymph # (Auto) 1.4 L (1.5-3.5) 10^3/uL [place] # (Auto) 0.3 (0.0-1.0) 10^3/uL Eos # (Auto) 0.2 (0.0-0.7) 10^3/uL Baso # (Auto) 0.0 (0.0-0.1) 10^3/uL Absolute Nucleated RBC 0.00 x10^3/uL Nucleated RBC % 0.0 /100WBC Sodium (135-145) mmol/L Potassium (3.5-5.0) mmol/L Chloride (101-111) mmol/L Carbon Dioxide (21-32) mmol/L Anion Gap (6-13) BUN (6-20) mg/dL Creatinine (0.6-1.2) mg/dL Estimated GFR (MDRD) (>89) Glucose (70-100) mg/dL Lactic Acid (0.5-2.2) mmol/L Calcium (8.5-10.3) mg/dL Magnesium (1.7-2.8) mg/dL Troponin I (<0.49) ng/mL Assessment/Plan - Problem List (1) Dehydration Impression: Patient with n/v/d after chemotherapy last Friday. His reports immediate diarrhea after infusions. She tries to keep him hydrated but the only thing that he could keep down was oatmeal the night prior to admission. He was hypotensive when EMS arrived 05/25/2018. He was given IVF in the ER. His blood pressure has improved Plan: discontinue IVF encourage fluid intake as tolerated (2) Syncope Impression: Likely secondary to above. Plan: obtain orthostatic vital signs, as able Qualifiers: Syncope type: unspecified Qualified Code(s): R55 - Syncope and collapse (3) Nausea vomiting and diarrhea Impression: Patient with persistent n/v/d since his last chemo infusion on Friday. This has since improved Plan: encourage PO intake PRN antiemetics available (4) Chronic diastolic heart failure Impression: Patient on lasix 40 mg BID at home. He reports if he does not take his lasix, he becomes short of breath. This was held on admission due to dehydration. Plan: resume lasix at half dose order PO KCL replacement in addition to IV KCL he is receiving. (5) Hypokalemia Impression: Potassium level 2.8. Replaced with 10 mEq in the ER. s/p 40 mEq replacement overnight. K 3.2 today Plan: replete with 40 mEq KCL IV today add 40 more Felicitas KCL continue telemetry follow-up labs in the morning (6) General weakness Impression: Patient quite debilitated with this new chemo regimen he is on. Per his , he has remained in bed mostly for the last 7 days after his chemo infusion. Prior to this chemo regimen, it has been noted that his mobility has been poor and he is unable to climb stairs and has a motorized scooter. He gets around the house in a walker. Plan: PT consult has been placed (7) Diabetes type 2, controlled Impression: Patient reports he is diet-controlled. Plan: continue carbohydrate managed diet. Qualifiers: Diabetes mellitus exterminator termite insulin use: without care home use Diabetes mellitus complication status: without complication Qualified Code(s): E11.9 - Type 2 diabetes mellitus without complications (8) Morbid obesity Impression: Patient is nearly immobile. Ambulates with a walker at home. Per RD, Plan: PT consulted (9) Lactic acidosis, resolved Impression: Lactic acid 3.4 in ER, this decreased to 1.9 after IV fluids. 0.7 this morning. (10) Hypomagnesemia, resolved Impression: Magnesium level 1.4 on admission. Repleted with 2 mg IV magnesium. Magnesium 1.9 today
[2018-05-26] MEDS ORDERED: MIN OIL/DIMETHICON/COCONUT OIL 92 GM TUBE TOP PRN (15:49)
[2018-05-26] MEDS ORDERED: POTASSIUM CHLORIDE 20 MEQ TABLET PO SCH (16:00)
[2018-05-26] MEDS: traMADol 50 MG TABLET PO SCH (20:19)
[2018-05-26] MEDS ORDERED: ZOLPIDEM 5 MG TABLET PO PRN (21:00)
[2018-05-27] MEDS: MORPHINE ER 15 MG TABLET PO SCH (05:46)
[2018-05-27] MEDS: FUROSEMIDE 20 MG TABLET PO SCH (05:46)
[2018-05-27 06:14] LABS: BASOPHILS % (AUTO) 0.7 %; EOSINOPHILS # (AUTO) 0.4 10^3/uL (0.0-0.7); EOSINOPHILS % (AUTO) 7.3 %; HGB - HEMOGLOBIN 11.6 g/dL (14.0-18.0); LYMPHOCYTES # (AUTO) 1.5 10^3/uL (1.5-3.5); LYMPHOCYTES % (AUTO) 28.3 %; MEAN CORPUSCULAR HEMOGLOBIN 30.4 pg (27.0-31.0); MEAN CORPUSCULAR HGB CONC 33.5 g/dL (32.0-36.0); MEAN CORPUSCULAR VOLUME 90.8 fL (80.0-94.0); MONOCYTES # (AUTO) 0.4 10^3/uL (0.0-1.0); MONOCYTES % (AUTO) 6.9 %; NEUTROPHILS % (AUTO) 56.8 %; PLT - PLATELET COUNT 172 10^3/uL (130-450); RED BLOOD COUNT 3.81 10^6/uL (4.70-6.10); RED CELL DISTRIBUTION WIDTH 13.8 % (12.0-15.0); WHITE BLOOD COUNT 5.2 x10^3/uL (4.8-10.8)
[2018-05-27 06:22] LABS: CALCIUM 8.6 mg/dL (8.5-10.3); CREATININE 1.4 mg/dL (0.6-1.2); MAGNESIUM 1.9 mg/dL (1.7-2.8)
[2018-05-27 08:08] VITALS: BP 160/88
[2018-05-27] MEDS: oxyCODONE 5 MG TABLET PO SCH (08:25)
[2018-05-27] MEDS: PARoxetine 10 MG TABLET PO SCH (08:26)
[2018-05-27] MEDS: SODIUM CHLORIDE FLUSH 0.9% 10 ML SYRINGE IVP SCH (08:26)
[2018-05-27] MEDS: POLYETHYLENE GLYCOL 3350 17 GM PACKET PO SCH (08:26)
[2018-05-27] MEDS: HEPARIN 5,000 UNIT/ML VIAL SUBQ SCH (08:27)
[2018-05-27] MEDS ORDERED: LOSARTAN 50 MG TABLET PO SCH (09:00)
--- NOTE | 2018-05-27 09:13 | DISCHARGE SUMMARY ---
"Discharge Summary Admit Date: 05/25/18 Discharge Date: 05/27/18 Discharging Provider: Shyla JARRELL Primary Care Provider: Dr. Roldan Zaragoza Code Status: Attempt Resuscitation Condition at Discharge: Stable Discharge Disposition: 01 Home, Self Care - DIAGNOSES Admission Diagnoses: (1) Dehydration (2) Syncope (3) Nausea vomiting and diarrhea (4) Lactic acidosis (5) Hypokalemia (6) General weakness (7) Diabetes type 2, controlled (8) Hypomagnesemia (9) Morbid obesity (10) Full code status Discharge Diagnoses with Status of Each Condition: (1) Dehydration, resolved (2) Syncope, resolved (3) Nausea vomiting and diarrhea, resolved (4) Lactic acidosis, resolved (5) Chronic diastolic heart failure, stable (6) Hypokalemia, resolved (7) General weakness, improved (8) Diabetes type 2, controlled, stable (9) Hypomagnesemia, resolved (10) Morbid obesity, stable (11) Hypertension, stable (12) Intertrigo bilateral pannus - HPI History of Present Illness: Mr. Reed is a 73 year old male with a PMH significant for metastatic colon cancer currently receiving chemotherapy, morbid obesity, diastolic heart failure, diet controlled T2DM, and MAR who [facility] after a syncopal episode at home. Much of the history is taken from the . The patient had chemo last Friday. He is currently receiving 'stronger' doses of chemotherapy. He is followed by Dr. Emerson in [place]. Since his last chemo dose, the patient has been mostly bed bound due to weakness. He has had persistent diarrhea since chemotherapy. The has attempted to keep the patient hydrated. He was able to keep oatmeal down last night, but other than that for the last 24 hours he has been unable to keep food down. The patient got up alone to go to the bathroom this morning. He began to bang on the wall and the patient's found him in the bathroom confused and quite pale. Their son lives with them and they both attempted to get the patient out of the bathroom. They were unable to do so and EMS was called. When EMS arrived, his blood pressure was low and he was fluid resuscitated and brought to the ER. Per , Dr. Emerson is aware of patient's admission. He was due to start radiation today. In the ER, he was noted to have a potassium level of 2.8. This was repleted with 10 mEq potassium and PO potassium bicarbonate. He was also given IV fluid hydration. His lactic acid was 3.4 on admission and decreased to 1.9 after IV fluids. He reports having a decreased appetite, general weakness, denies CP or SOB, currently denies abdominal pain. He has a suprapubic catheter that was placed in 09/2017 with last change occurring May 13, 2018. He also has a left port that is not accessed. - CONSULTS | PROCEDURES Consultations: Wound Care, Bran JARRELL - HOSPITAL COURSE Hospital Course: by problem: (1) Dehydration Patient with n/v/d after chemotherapy last Friday. His reports immediate diarrhea after infusions. She tries to keep him hydrated but the only thing that he could keep down was oatmeal the night prior to admission. He was hypotensive when EMS arrived 05/25/2018. He was given IVF in the ER. They were continued during his admission until he was able to take in fluids without n/v. His blood pressure has improved and is now hypertensive. (2) Syncope Likely secondary to above. Resolved. Orthostatic VS normal. Complains of dizziness when sitting up, states that this is a chronic problem for him. (3) Nausea vomiting and diarrhea Patient with persistent n/v/d since his last chemo infusion on Friday. This has since resolved and he is able to take in PO diet without n/v. Still with diarrhea, although has improved. (4) Chronic diastolic heart failure Patient on lasix 40 mg BID at home. He reports if he does not take his lasix, he becomes short of breath. This was held on admission due to dehydration. Once he was rehydrated, this was started at half-dose. He will discharge on half-dose. (5) Hypokalemia Potassium level 2.8. This was replaced. On the day of discharge, his potassium level is 3.9. (6) General weakness Patient quite debilitated with this new chemo regimen he is on. Per his , he has remained in bed mostly for the last 7 days after his chemo infusion. Prior to this chemo regimen, it has been noted that his mobility has been poor and he is unable to climb stairs and has a motorized scooter. He gets around the house in a walker. PT was consulted, on the day of discharge, he was able to ambulate 50 ft with his walker. (7) Diabetes type 2, controlled Patient reports he is diet-controlled. His blood sugars were stable. (8) Morbid obesity Patient is nearly immobile. Ambulates with a walker at home. BMI 51.6 kg/m2 (9) Lactic acidosis Lactic acid 3.4 in ER, this decreased to 1.9 after IV fluids. lactate 0.7 05/26/2018. (10) Hypomagnesemia Magnesium level 1.4 on admission. Repleted with 2 mg IV magnesium. Magnesium 1.9 today (11) Hypertension: Home antihypertensives held on admission due to hypotension. He is now hypertensive in the 160s. Furosemide was resumed at 20 mg PO BID. His losartan was resumed on the day of discharge. (12) Intertrigo bilateral pannus: Wound consult was placed. Placed interdry to pannus. Patient would benefit from outpatient follow-up. - ALLERGIES Allergies/Adverse Reactions: Allergies Allergy/AdvReac Type Severity Reaction Status Date / Time cephalexin monohydrate * AdvReac Nausea Verified 05/25/18 08:36 [From Keflex] - MEDICATIONS Home Medications: Ambulatory Orders Medication Instructions Recorded Confirmed Losartan Potassium 50 mg PO BID 04/15/16 05/25/18 Calcium Carbonate [Tums (Calcium 500 - 1,000 mg PO Q4H PRN 10/05/17 05/25/18 Carbonate 500mg)] Cholecalciferol [Vitamin D3] 5,000 unit PO DAILY 10/05/17 05/25/18 Zolpidem Tartrate [Ambien] 10 mg PO QPM PRN 10/05/17 05/25/18 Ferrous Gluconate 324 mg PO BID #60 tablet 10/11/17 05/25/18 Gabapentin 900 mg PO DAILY 05/25/18 05/25/18 Hydralazine HCl 25 mg PO TID 05/25/18 05/25/18 LORazepam [Lorazepam] 1 mg PO PRN PRN 05/25/18 05/25/18 Morphine ER 15 mg PO Q12H 05/25/18 05/25/18 Ondansetron [Ondansetron Odt] 8 mg SL Q8H PRN 05/25/18 05/25/18 Oxycodone HCl 10 mg PO BID 05/25/18 05/25/18 PARoxetine HCl [Paroxetine HCl] 30 mg PO DAILY 05/25/18 05/25/18 Tramadol HCl 50 mg PO QPM 05/25/18 05/25/18 Furosemide [Lasix] 20 mg PO BIDDIURETIC tablet 05/27/18 - PHYSICAL EXAM AT DISCHARGE General Appearance: positive: No acute distress, Alert Eyes Bilateral: positive: Normal inspection, PERRL, EOMI ENT: positive: ENT inspection nml, Pharynx nml, No signs of dehydration Neck: positive: Nml inspection, Trachea midline Respiratory: positive: Chest non-tender, No respiratory distress, Breath sounds nml Cardiovascular: positive: Regular rate & rhythm, No murmur, No gallop Peripheral Pulses: positive: 2+ Abdomen: positive: Non-tender, No organomegaly, Nml bowel sounds, No distention, Other (suprapubic catheter) Skin: positive: Warm, Dry, Decubitus (DTI to right buttock), Other (intertrigo to pannus) Extremities: positive: Non-tender Neurologic/Psychiatric: positive: Oriented x3, CN's nml (2-12), Sensation nml, Weakness - LABS Result Diagrams: 05/27/18 05:30 05/27/18 05:30 Other Lab Results: Laboratory Tests 05/25/18 05/25/18 05/25/18 08:56 08:56 08:56 WBC 9.8 RBC 4.43 L Hgb 13.5 L Hct 39.9 L MCV 90.1 MCH 30.5 MCHC 33.9 RDW 13.7 Plt Count 239 MPV 6.7 L Neut # (Auto) 8.4 H Lymph # (Auto) 0.9 L [place] # (Auto) 0.3 Eos # (Auto) 0.1 Baso # (Auto) 0.1 Absolute Nucleated RBC 0.01 Nucleated RBC % 0.2 Sodium 139 Potassium 2.8 L Chloride 91 L Carbon Dioxide 35 H Anion Gap 13.0 BUN 20 Creatinine 1.8 H Estimated GFR (MDRD) 37 L Glucose 169 H Lactic Acid 3.4 H* Calcium 9.1 Magnesium 1.4 L Total Bilirubin 0.8 AST 35 ALT 34 Alkaline Phosphatase 72 Troponin I B-Natriuretic Peptide Total Protein 7.0 Albumin 3.3 Globulin 3.7 Albumin/Globulin Ratio 0.9 L Lipase 29 05/25/18 05/25/18 05/25/18 08:56 08:56 10:40 WBC RBC Hgb Hct MCV MCH MCHC RDW Plt Count MPV Neut # (Auto) Lymph # (Auto) [place] # (Auto) Eos # (Auto) Baso # (Auto) Absolute Nucleated RBC Nucleated RBC % Sodium Potassium Chloride Carbon Dioxide Anion Gap BUN Creatinine Estimated GFR (MDRD) Glucose Lactic Acid 1.9 Calcium Magnesium Total Bilirubin AST ALT Alkaline Phosphatase Troponin I < 0.04 B-Natriuretic Peptide 129 H Total Protein Albumin Globulin Albumin/Globulin Ratio Lipase 05/26/18 05/26/18 05/26/18 06:02 06:02 06:02 WBC 5.3 RBC 3.86 L Hgb 11.6 L Hct 34.9 L MCV 90.5 MCH 30.0 MCHC 33.2 RDW 14.0 Plt Count 165 MPV 6.8 L Neut # (Auto) 3.4 Lymph # (Auto) 1.4 L [place] # (Auto) 0.3 Eos # (Auto) 0.2 Baso # (Auto) 0.0 Absolute Nucleated RBC 0.00 Nucleated RBC % 0.0 Sodium 138 Potassium 3.2 L Chloride 95 L Carbon Dioxide 33 H Anion Gap 10.0 BUN 21 H Creatinine 1.6 H Estimated GFR (MDRD) 43 L Glucose 103 H Lactic Acid 0.7 Calcium 8.4 L Magnesium 1.9 Total Bilirubin AST ALT Alkaline Phosphatase Troponin I B-Natriuretic Peptide Total Protein Albumin Globulin Albumin/Globulin Ratio Lipase 05/26/18 05/27/18 05/27/18 10:13 05:30 05:30 WBC 5.2 RBC 3.81 L Hgb 11.6 L Hct 34.6 L MCV 90.8 MCH 30.4 MCHC 33.5 RDW 13.8 Plt Count 172 MPV 7.0 L Neut # (Auto) 3.0 Lymph # (Auto) 1.5 [place] # (Auto) 0.4 Eos # (Auto) 0.4 Baso # (Auto) 0.0 Absolute Nucleated RBC 0.00 Nucleated RBC % 0.0 Sodium 138 Potassium 3.9 Chloride 98 L Carbon Dioxide 32 Anion Gap 8.0 BUN 19 Creatinine 1.4 H Estimated GFR (MDRD) 50 L Glucose 116 H Lactic Acid Calcium 8.6 Magnesium 1.9 Total Bilirubin AST ALT Alkaline Phosphatase Troponin I < 0.04 B-Natriuretic Peptide Total Protein Albumin Globulin Albumin/Globulin Ratio Lipase - DIAGNOSTIC IMAGING Diagnostic Imaging Results: Final report reviewed Diagnostic Imaging Results Comments: 1-view CXR 05/25/2018: 1. Appropriate position of the left subclavian Port-A-Cath 2. No acute findings 3. Other stable chronic degenerative changes - FOLLOW UP Follow Up: Follow-up with oncologist, Dr. Price as previously scheduled. Follow-up with Dr. Zaragoza in 1-2 weeks. - TIME SPENT Time Spent in Discharge (Minutes): 45"
--- NOTE | 2018-05-27 09:13 | Discharge Plan ---
Discharge Plan Disposition: 01 Home, Self Care Condition: Stable Diet: Regular Activity Restrictions: Activity as Tolerated Assistance Devices: Walker Additional Instructions or Follow Up instructions: You were admitted to the hospital for dehydration, syncope, and low potassium levels caused by nausea/vomiting/diarrhea after your recent chemo. You were rehydrated with IV fluids. Your potassium was replaced and your potassium is now normal. Physical therapy evaluated you and you were safe for a discharge home, being able to ambulate 50 feet. Your furosemide (lasix) was decreased to 20 mg BID. Your losartan was resumed. Please monitor your blood pressures at home. Wound care was consulted and recommended placing a wicking layer under your left and right abdomen. If you are unable to obtain interdry, ok to use a tshirt or pillow case, anything that is able to absorb moisture. Make sure to clean and pat dry the areas every day. Follow-up with outpatient wound care as needed. Continue to followup with provider for suprapubic catheter change. Follow-up with Dr. Price as previously scheduled. Follow-up with PCP within 1-2 weeks. No Smoking: If you smoke, Please STOP! Call for help. Follow-up with: Roldan Zaragoza MD [Primary Care Provider] -
--- NOTE | 2018-05-27 12:20 | Discharge Plan ---
Discharge Plan Disposition: Home Health Service Condition: Stable Diet: Regular Activity Restrictions: Activity as Tolerated Assistance Devices: Walker Additional Instructions or Follow Up instructions: You were admitted to the hospital for dehydration, syncope, and low potassium levels caused by nausea/vomiting/diarrhea after your recent chemo. You were rehydrated with IV fluids. Your potassium was replaced and your potassium is now normal. Physical therapy evaluated you and you were safe for a discharge home, being able to ambulate 50 feet. Your furosemide (lasix) was decreased to 20 mg BID. Your losartan was resumed. Please monitor your blood pressures at home. Wound care was consulted and recommended placing a wicking layer under your left and right abdomen. If you are unable to obtain interdry, ok to use a tshirt or pillow case, anything that is able to absorb moisture. Make sure to clean and pat dry the areas every day. Follow-up with outpatient wound care as needed. Continue to followup with provider for suprapubic catheter change. Follow-up with Dr. Price as previously scheduled. Follow-up with PCP within 1-2 weeks. Follow-Up Care: Home Health - RN (for wound care and will also need a bath aide) No Smoking: If you smoke, Please STOP! Call for help. Follow-up with: Roldan Zaragoza MD [Primary Care Provider] -
== END 2018-05-27 12:30 | disposition home health service (06) | DRG 641 ==
LOC: EDUNIT# → ED 08:27 → MS2 13:16
PROVIDERS: ADMIT Nurse Practitioner; ATTEND Nurse Practitioner
DX: E86.0 Dehydration (principal); C18.9 Malignant neoplasm of colon, unspecified; I50.32 Chronic diastolic (congestive) heart failure; Z68.43 Body mass index [BMI] 50.0-59.9, adult; C79.9 Secondary malignant neoplasm of unspecified site; R55 Syncope and collapse; C78.00 Secondary malignant neoplasm of unspecified lung; C79.70 Secondary malignant neoplasm of unspecified adrenal gland; R11.2 Nausea with vomiting, unspecified; R19.7 Diarrhea, unspecified; Z92.21 Personal history of antineoplastic chemotherapy; T45.1X5A Adverse effect of antineoplastic and immunosuppressive drugs, initial encounter; E87.2 Acidosis; E87.6 Hypokalemia; I11.0 Hypertensive heart disease with heart failure; E11.42 Type 2 diabetes mellitus with diabetic polyneuropathy; E66.01 Morbid (severe) obesity due to excess calories; E83.42 Hypomagnesemia; L30.4 Erythema intertrigo; E65 Localized adiposity; G47.33 Obstructive sleep apnea (adult) (pediatric); Z74.01 Bed confinement status; R53.81 Other malaise; E11.51 Type 2 diabetes mellitus with diabetic peripheral angiopathy without gangrene; G47.30 Sleep apnea, unspecified; R32 Unspecified urinary incontinence; R35.1 Nocturia; R35.0 Frequency of micturition; H91.90 Unspecified hearing loss, unspecified ear; M19.90 Unspecified osteoarthritis, unspecified site; Z90.49 Acquired absence of other specified parts of digestive tract; Z96.659 Presence of unspecified artificial knee joint; K59.09 Other constipation; Z87.891 Personal history of nicotine dependence
CPT/HCPCS: 36415; 71045; 80048; 80053; 83605; 83690; 83735; 83880; 84484; 85025; 93005; 96361; 96374; 97116; 97162; 99284; A6250; A9270

== ENCOUNTER 2018-06-02 07:35 | Outpatient (CLI) | payer MEDICARE | END 2018-06-02 07:36 | disposition short-term general hospital (02) | LOC: EMS 07:35 | PROVIDERS: ATTEND Surgery | DX: R53.1 Weakness (principal); Z79.899 Other long term (current) drug therapy | CPT/HCPCS: A0425; A0429; A0888 ==

== ENCOUNTER 2018-07-08 12:29 | Outpatient (CLI) | payer MEDICARE | END 2018-07-08 12:30 | disposition EMS.NT | LOC: EMS 12:29 | PROVIDERS: ATTEND Surgery | DX: Z03.89 Encounter for observation for other suspected diseases and conditions ruled out (principal) ==